=== PATIENT | female | born 1945 | race Caucasian/White ===

== ENCOUNTER 2025-03-09 16:01 | Inpatient (IN) | payer MEDICARE, MEDICAID, SELFPAY ==
[2025-03-09] VITALS (18 sets, daily range): BP systolic 100–176; BP diastolic 37–68; PULSE 59–90; RESP 12–35; TEMP 34–36.6; O2SAT 94–98; BMI 33.9; BMI 34.2
--- NOTE | ~2025-03-09 | MR_ITS ---
CLINICAL HISTORY: stroke Vented pt, lots of motions, tried Blades as possible. Best exams obtained MR Brain without gadolinium Comparison: CT/CA/SR - CT HEAD/BRAIN WO IV CON - 03/09/25 16:32 EDT Findings: No restricted diffusion. No intra-axial mass or hemorrhage. No midline shift. No hydrocephalus. Vascular flow voids are intact. Encephalomalacia/gliosis of the right occipital lobe consistent with chronic infarct. Chronic lacunar infarct of the right basal ganglia. Moderate periventricular subcortical T2/FLAIR hyperintensities consistent with chronic microvascular ischemic changes. The orbits are normal. The sinuses and mastoid air cells are clear. No focal bone lesion. IMPRESSION: No acute infarct, intracranial hemorrhage or mass lesions. 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 Moderate generalized cerebral volume loss and chronic microvascular ischemic changes of the periventricular and subcortical white matter. This document has been electronically signed by: Morelia Galindo MD on 03/09/2025 22:48:14
--- NOTE | ~2025-03-09 | MR_ITS ---
CLINICAL HISTORY: stroke Vented pt, lots of motions, tried Blades as possible. Best exams obtained MR Angiography head without gadolinium Comparison: CT/SR - CT HEAD/BRAIN WO IV CON - 03/09/25 16:32 EDT Findings Widely patent intracranial internal carotid arteries. Vertebrobasilar system intact. Anterior, middle, and posterior cerebral arteries are normal. Unremarkable cerebellar arteries. IMPRESSION: Normal MRA brain This document has been electronically signed by: Morelia Galindo MD on 03/09/2025 22:34:57
--- NOTE | ~2025-03-09 | CT_ITS ---
EXAMINATION: CT HEAD WITHOUT CONTRAST CLINICAL INFORMATION: Unresponsive COMPARISON: None available. TECHNIQUE: Contiguous axial imaging was performed from the skull base to vertex without intravenous administration of contrast. This CT examination was performed using dose optimization techniques as appropriate, variously including the following: *Automated exposure control *Adjustment of mA and/or kV according to patient size (this includes techniques or standardized protocols for targeted exams where dose is matched to indication/reason for exam; i.e. extremities or head) *Use of iterative reconstruction technique DLP: 748 mGY*cm FINDINGS: Focal hypodensity is present in the left side of the miah (axial CT images ). There is chronic encephalization the right [employer] territory. There is a prominent perivascular space in the bilateral basal ganglia versus old lacunar infarcts. There is no intracranial hemorrhage. There is no mass-effect or midline shift. Basal cisterns and ventricles are within normal limits for age/cerebral volume. Orbits are symmetrical and unremarkable. Paranasal sinuses and mastoid air cells are pneumatized. There are no bony abnormalities. CT/CT head/brain wo IV con IMPRESSION: Small focal hypodensity in the left side of the miah could represent age-indeterminate ischemic change. Chronic right [employer] territory infarct with encephalomalacia. Electronically signed by: Bruno Enriquez MD 03/09/2025 04:58 PM EDT
--- NOTE | ~2025-03-09 | XR_ITS ---
CLINICAL HISTORY: ;post intubation Chest Radiograph Comparison: None available Findings: The endotracheal tube terminates within the proximal right mainstem bronchus. The enteric tube terminates in the left upper quadrant. The side port is beyond the gastroesophageal junction. There is a kink within the tube. No cardiomegaly. Normal mediastinal contours. No pneumothorax. Mild elevation of the right hemidiaphragm with right lung base opacity. No left pleural effusion. Postsurgical change in the right upper quadrant. No acute fracture. Impression: Endotracheal tube terminating within the proximal right mainstem bronchus. Pull back by 3 cm. Properly positioned enteric tube, however there is a kink within the tube which may cause obstruction. Mild elevation of the right hemidiaphragm. Right lung base opacity is likely atelectasis. Pneumonia and/or a small pleural effusion may also be considered. This document has been electronically signed by: Tiff Breen MD on 03/09/2025 18:06:00
--- NOTE | 2025-03-09 16:05 | PC.NURSE ---
pt into CT unresponsive to physical stimuliation
[2025-03-09] MEDS: Ketamine HCl/NS 100 MG/10 ML SYRINGE 50 MG IVPUSH (16:15)
--- NOTE | 2025-03-09 16:15 | PC.NURSE ---
pt arrived to the ed as an stroke protocol was non-responsive, gurgled respirations, gazing to the right and flaccid with diaphoresis present, pt moved into ct upon arrival, Dr Hernández walks into the CT room and states that per family plan to intubate even the current MOLS stated DNR/DNI, pt moved back into 4 room intubated at 1618 with a 7.5ET and 23 at the lip, positive color change and capnography at 40, nG tube placed by DR Hernández
--- NOTE | 2025-03-09 16:21 | ECG_ITS ---
Test Reason : ams Blood Pressure : */* mmHG Vent. Rate : 83 BPM Atrial Rate : 83 BPM P-R Int : 264 ms QRS Dur : 106 ms QT Int : 408 ms P-R-T Axes : 51 3 24 degrees QTcB Int : 479 ms Sinus rhythm with 1st degree A-V block with occasional Premature ventricular complexes Septal infarct , age undetermined Abnormal ECG No previous ECGs available Referred By: Irving Hernández Electronically Signed By: Chan Melgar
--- NOTE | 2025-03-09 16:29 | ED.AMS ---
HPI - Altered Mental Status General Chief Complaint: Altered Mental Status Stated Complaint: CVA Time Seen by Provider: 03/09/25 16:22 Source: family (son mamadou brown HCP @[phone]) and EMS Mode of arrival: EMS Limitations: altered mental status History of Present Illness ED Provider: DR. Hernández HPI narrative: 80-year-old female from longterm with history of vascular dementia, age-related physical debility, HTN, hypothyroidism, HLD, GERD , came in for acute mental status change patient presented as a stroke alert last known well about 1 hour before arrival to the hospital, on hospital arrival patient is flaccid,no gag reflex, came in accompanied with MOLST form as DNR/DNI, the healthcare proxy Mamadou Brown, was contacted at phone number [phone] who wanted to revise the DNR condition ask for doing everything for his mom including intubation and placing her on ventilator and CPR if needed. Therefore was moved to room 4, intubated, and stabilize airway, CT head/x-ray/labs were ordered, await for the son to arrive for more history. 16;50 son Mamadou Brown/HCP is at the bedside now last so his mother few hours ago at the longterm mother with perfectly at her baseline able to carry on a good conversation with him then shortly he received a phone call from the longterm that his mother is not responsive. Related Data Home Medications ?Medication ?Instructions ?Recorded ?Confirmed acetaminophen 325 mg tablet 650 mg PO Q6H PRN Fever Or Pain 03/09/25 03/09/25 aluminum-mag hydroxide-simethicone 15 ml PO Q6H PRN Indigestion 03/09/25 03/09/25 400 mg-400 mg-40 mg/5 mL oral susp (Mylanta Maximum Strength) amlodipine 10 mg tablet 10 mg PO DAILY 03/09/25 03/09/25 bisacodyl 10 mg rectal suppository 10 mg ID DAILY PRN Constipation 03/09/25 03/09/25 cholecalciferol (vitamin D3) 25 25 mcg PO DAILY 03/09/25 03/09/25 mcg (1,000 unit) tablet (Vitamin D3) cyanocobalamin (vitamin B-12) 1,000 mcg PO DAILY 03/09/25 03/09/25 1,000 mcg tablet (Vitamin B-12) erythromycin 5 mg/gram (0.5 %) eye 1 inch ophthalmic (eye) QID 03/09/25 03/09/25 ointment irbesartan 300 mg tablet 300 mg PO DAILY 03/09/25 03/09/25 levothyroxine 112 mcg tablet 112 mcg PO DAILY@0600 03/09/25 03/09/25 magnesium hydroxide 400 mg/5 mL 30 ml PO DAILY PRN Constipation 03/09/25 03/09/25 oral suspension (Milk of Magnesia) melatonin 3 mg tablet 3 mg PO BEDTIME 03/09/25 03/09/25 menthol 5 % topical patch (Icy Hot 1 patch topical DAILY 03/09/25 03/09/25 (menthol)) polyethylene glycol 3350 17 17 g PO DAILY PRN Constipation 03/09/25 03/09/25 gram/dose oral powder (Miralax) sertraline 25 mg tablet 25 mg PO DAILY 03/09/25 03/09/25 sertraline 50 mg tablet 50 mg PO DAILY 03/09/25 03/09/25 simvastatin 10 mg tablet 10 mg PO BEDTIME 03/09/25 03/09/25 sodium phosphates 19 gram-7 118 ml ID DAILY PRN Constipation 03/09/25 03/09/25 gram/118 mL enema (Fleet Enema) trazodone 50 mg tablet 25 mg PO BEDTIME 03/09/25 03/09/25 Allergies Allergy/AdvReac Type Severity Reaction Status Date / Time No Known Allergies Allergy Verified 03/09/25 17:06 Review of Systems Review of Systems: Yes unobtainable due to endotracheal tube PMFSH Social History Social History Unable to assess alcohol history related to: Unable to respond Smoked in Last 30 Days: No Use of substances other than those prescribed or required for medical reasons: Unable to respond Advance Directives: No Advance Directives Information Provided: No Do you have a plan to hurt others: No Plan Physical Exam ED Vital Signs: Vital Signs - 24 hr 03/09/25 16:58 03/09/25 17:05 03/09/25 17:08 Temperature 97.8 F 97.8 F Pulse Rate 80 80 Respiratory Rate 18 18 Blood Pressure 108/51 L 108/51 L Pulse Oximetry 97 97 Oxygen Delivery Method Room Air Room Air Oxygen Flow Rate Fraction of Inspired Oxygen 60 03/09/25 17:09 03/09/25 17:18 03/09/25 17:28 Temperature 95.7 F L 96.1 F L 96.1 F L Pulse Rate 81 90 81 Respiratory Rate 18 19 18 Blood Pressure 103/42 L 109/43 L 117/40 L Pulse Oximetry 97 97 95 Oxygen Delivery Method Mechanical Ventilation Mechanical Ventilation Room Air Oxygen Flow Rate 60 Fraction of Inspired Oxygen 60 40 BMI result Body Mass Index 33.9 Vital signs have been reviewed and appear to be correct. Blood pressure elevated. Heart rate normal. Respiratory rate normal. Temperature normal. Oxygen saturation normal. General: Nonresponsive, unable to evaluate for stroke screening. Head: No trauma, pupil is 3 mm reactive bilaterally. ENT: Patent airway with no obstruction, no gag reflex, patient can not protect her airway. Chest: No trauma, lung sound is CTA. Heart: S1, S2. Abdomen: Obese, soft, no trauma. Neuro: Nonresponsive. Extremities: No obvious deformity, no ischemic changes x 4 extremities. Course Reevaluation(s) Reevaluation #1: 80-year-old female came in with acute change mental status, patient is non historian and unable to do a neurological exam unable to assess for NIH score, therefore patient is not candidate for TNK, case discussed with Dr. Morgan neurology on-call recommended get brain MRI at some point. Patient met sepsis with UTI received IV Zosyn. Intubated, post intubation showed ET tube in the right main bronchus the tube was withdrawn 3 cm. Time: 19:56 Medications Administered Generic Name Dose Route Start Last Admin Trade Name Freq PRN Reason Stop Dose Admin Enoxaparin Sodium 40 mg 03/09/25 18:00 03/09/25 17:51 Enoxaparin Sodium 40 Mg/0.4 Ml Syringe SUBCUT 40 mg Q24H ZAIN Administration Propofol 1,000 mg in 100 mls @ 0 mls/hr 03/09/25 16:30 03/09/25 19:31 Diprivan IVCONT 50 mcg/kg/min .Q0M ZAIN 26.04 mls/hr Protocol Administration Per Protocol Lactated Ringer's 1,000 mls @ 100 mls/hr 03/09/25 17:45 03/09/25 17:50 Lr IVCONT 100 mls/hr .Q10H ZAIN Administration Pantoprazole Sodium 40 mg 03/09/25 18:00 03/09/25 18:19 Pantoprazole Sodium 40 Mg/10 Ml Vial IVPUSH 40 mg DAILY@0630 ZAIN Administration Discontinued Medications Generic Name Dose Route Start Last Admin Trade Name Freq PRN Reason Stop Dose Admin Piperacillin Sod/Tazobactam 50 mls @ 100 mls/hr 03/09/25 16:49 03/09/25 17:32 Sod 3.375 gm/ Sodium Chloride IV 03/09/25 17:18 Infused ONCE ONE Infusion Sodium Chloride 1,000 mls @ 999 mls/hr 03/09/25 16:50 03/09/25 18:00 Ns IV 03/09/25 17:50 Infused .Q1H1M ONE Infusion Ketamine HCl 50 mg 03/09/25 16:24 03/09/25 16:15 Ketamine Hcl/Ns 100 Mg/10 Ml Syringe IVPUSH 03/09/25 16:25 50 mg ONCE ONE Administration Ondansetron HCl 4 mg 03/09/25 16:50 03/09/25 16:51 Ondansetron Hcl 4 Mg/2 Ml Vial IVPUSH 03/09/25 16:51 4 mg ONCE ONE Administration Succinylcholine Chloride 100 mg 03/09/25 16:23 03/09/25 16:15 Succinylcholine Chloride 200 Mg/10 Ml Vial IVPUSH 03/09/25 16:24 100 mg ONCE ONE Administration Medical Decision Making Differential Diagnosis Differential Diagnoses: The differential diagnosis associated with the presentation includes (UTI, pneumonia, intracranial bleed, electrolyte derangement, severe anemia.) Admission/Observation Consideration of admission/observation: Escalation of care including admission/observation considered Lab Data MDM Lab Attestation statement: I reviewed the patient's lab results. 03/09/25 16:25 03/09/25 16:25 Labs: Lab Results 03/09/25 03/09/25 03/09/25 Range/Units 16:25 16:26 16:33 WBC 20.6 H (4.8-10.8) X10*3/uL RBC 4.14 L (4.20-5.50) X10*6/uL Hgb 11.7 L (12.0-16.0) g/dl Hct 36.2 L (37.0-47.0) % MCV 87.4 (80.0-98.0) fL MCH 28.3 (27.0-33.0) pg MCHC 32.3 (31.0-35.0) g/dl RDW 14.6 (11.0-16.0) % Plt Count 350 (160-400) X10*3/uL MPV 10.5 (9.4-12.3) fL Immature Gran % (Auto) 0.9 H (0.0-0.4) % Neut % (Auto) 56.6 (45-73) % Lymph % (Auto) 34.6 (20-40) % [place] % (Auto) 4.3 (2-11) % Eos % (Auto) 3.2 (0-4) % Baso % (Auto) 0.4 (0-2) % Lymph # (Auto) 7.1 H (1.2-4.9) X10*3/uL [place] # (Auto) 0.9 (0.1-1.2) X10*3/uL Eos # (Auto) 0.7 H (0.0-0.4) X10*3/uL Baso # (Auto) 0.1 (0.0-0.2) X10*3/uL Abs Immat Gran (auto) 0.19 H (0.00-0.03) X10*3/uL Absolute Neuts (auto) 11.6 H (2.0-8.3) x10*3/uL Absolute Nucleated RBC 0.000 (0.0-0.012) X10*3/uL Nucleated RBC % (auto) 0.0 (0.0-0.2) /100WBC Smear Tech's Comments VERIFIED PT 10.6 L (10.9-12.4) SEC INR 0.9 (0.9-1.1) VBG pH (7.32-7.43) VBG pCO2 mmHg VBG pO2 mmHg VBG HCO3 (22-26) mmol/L VBG O2 Saturation % VBG Base Excess mmol/L Sodium 137 (135-145) mmol/L Potassium 4.6 (3.3-5.1) mmol/L Chloride 109 H (96-108) mmol/L Carbon Dioxide 20 L (22-29) mmol/L Anion Gap 13 (12-20) BUN 52 H (9-16) mg/dL Creatinine 1.51 H (0.5-1.4) mg/dL Estim Creat Clear Calc 30.5 Estimated GFR 33 Random Glucose 312 H (60-115) mg/dL Lactic Acid 1.7 (0.5-2.0) mmol/L Calcium 8.4 (8.4-10.2) mg/dL Phosphorus 6.0 H (2.7-4.5) mg/dL Magnesium 2.1 (1.6-2.6) mg/dL Total Bilirubin 0.2 (0.0-1.0) mg/dL AST 26 (5-31) U/L ALT 17 (0-31) U/L Alkaline Phosphatase 115 (39-117) U/L Ammonia 26 (13-55) umol/L Troponin I High Sens 38.5 H (<3.5-17.0) ng/L B-Natriuretic Peptide 393 H (<100) pg/mL Total Protein 7.0 (6.5-8.0) g/dL Albumin 3.6 (3.5-5.0) g/dL Urine Color Urine Appearance Urine pH (5.0-9.0) Ur Specific [place] (1.005-1.025) Urine Protein (Neg-Trace) mg/dL Urine Glucose (UA) (Negative) mg/dL Urine Ketones (Negative) mg/dL Urine Blood (Negative) Urine Nitrite (Negative) Ur Leukocyte Esterase (Negative) Urine RBC (0-2) /HPF Urine WBC (0-5) /HPF Ur Squamous Epith Cells (0-2) /HPF Urine Bacteria (None Seen) Hyaline Casts (0-2) /LPF Influenza Type A (PCR) NEGATIVE (Negative) Influenza Type B (PCR) NEGATIVE (Negative) RSV RNA Qual (PCR) NEGATIVE (Negative) SARS-CoV-2 RNA (RT-PCR) NEGATIVE (Negative) 03/09/25 03/09/25 Range/Units 16:37 17:01 WBC (4.8-10.8) X10*3/uL RBC (4.20-5.50) X10*6/uL Hgb (12.0-16.0) g/dl Hct (37.0-47.0) % MCV (80.0-98.0) fL MCH (27.0-33.0) pg MCHC (31.0-35.0) g/dl RDW (11.0-16.0) % Plt Count (160-400) X10*3/uL MPV (9.4-12.3) fL Immature Gran % (Auto) (0.0-0.4) % Neut % (Auto) (45-73) % Lymph % (Auto) (20-40) % [place] % (Auto) (2-11) % Eos % (Auto) (0-4) % Baso % (Auto) (0-2) % Lymph # (Auto) (1.2-4.9) X10*3/uL [place] # (Auto) (0.1-1.2) X10*3/uL Eos # (Auto) (0.0-0.4) X10*3/uL Baso # (Auto) (0.0-0.2) X10*3/uL Abs Immat Gran (auto) (0.00-0.03) X10*3/uL Absolute Neuts (auto) (2.0-8.3) x10*3/uL Absolute Nucleated RBC (0.0-0.012) X10*3/uL Nucleated RBC % (auto) (0.0-0.2) /100WBC Smear Tech's Comments PT (10.9-12.4) SEC INR (0.9-1.1) VBG pH 7.00 L* (7.32-7.43) VBG pCO2 81 mmHg VBG pO2 277 mmHg VBG HCO3 20 L (22-26) mmol/L VBG O2 Saturation 99.0 % VBG Base Excess -11.8 mmol/L Sodium (135-145) mmol/L Potassium (3.3-5.1) mmol/L Chloride (96-108) mmol/L Carbon Dioxide (22-29) mmol/L Anion Gap (12-20) BUN (9-16) mg/dL Creatinine (0.5-1.4) mg/dL Estim Creat Clear Calc Estimated GFR Random Glucose (60-115) mg/dL Lactic Acid (0.5-2.0) mmol/L Calcium (8.4-10.2) mg/dL Phosphorus (2.7-4.5) mg/dL Magnesium (1.6-2.6) mg/dL Total Bilirubin (0.0-1.0) mg/dL AST (5-31) U/L ALT (0-31) U/L Alkaline Phosphatase (39-117) U/L Ammonia (13-55) umol/L Troponin I High Sens (<3.5-17.0) ng/L B-Natriuretic Peptide (<100) pg/mL Total Protein (6.5-8.0) g/dL Albumin (3.5-5.0) g/dL Urine Color Yellow Urine Appearance Cloudy Urine pH 5.5 (5.0-9.0) Ur Specific [place] 1.020 (1.005-1.025) Urine Protein >=1000 (4+) H (Neg-Trace) mg/dL Urine Glucose (UA) 100 H (Negative) mg/dL Urine Ketones Negative (Negative) mg/dL Urine Blood Small (1+) H (Negative) Urine Nitrite Negative (Negative) Ur Leukocyte Esterase Moderate (2+) H (Negative) Urine RBC 3-5 H (0-2) /HPF Urine WBC >50 H (0-5) /HPF Ur Squamous Epith Cells 11-20 (0-2) /HPF Urine Bacteria 4+ (None Seen) Hyaline Casts >20 (0-2) /LPF Influenza Type A (PCR) (Negative) Influenza Type B (PCR) (Negative) RSV RNA Qual (PCR) (Negative) SARS-CoV-2 RNA (RT-PCR) (Negative) Independent Interpretation I performed an independent interpretation of an: Plain X-Ray (Chest:Endotracheal tube terminating within the proximal right mainstem bronchus. Pull back by 3 cm. Properly positioned enteric tube, however there is a kink within the tube which may cause obstruction. Mild elevation of the right hemidiaphragm. Right lung base opacity is likely atelectasis. Pneu) and CT Scan (Head:Small focal hypodensity in the left side of the miah could represent age-indeterminate ischemic change. 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 Procedures Intubation Intubation Type:: Emergency Endotracheal Intubation Intubation Date:: 03/09/25 Intubation Time:: 17:00 Time out performed: Yes sedative: Ketamine Mg Given: 50 paralytic: Succinylcholine Mg Given: 100 Laryngoscope: fiber optic video scope ET Tube Size: 7.5 ET Tube Uncuffed: No Tube Secured Depth (cm): 23 Tube Placement Confirmation: visualized tube passing through cords, equal breath sounds bilaterally, no breath sounds over epigastrium and confirmation by capnometry Patient Tolerated Procedure: well Intubation Complications: none Critical Care Time Critical Care Time Critical Care Time: Yes Total Critical Care Time: 60 Attestation: The patient was critically ill with a high probability of imminent or life-threatening deterioration. I spent greater than 30 minutes of discontinuous time evaluating the patient, delivering critical care at the bedside, discussing evaluating data with consultants. Critical care time does not include time spent performing separately billable procedures or teaching. Time spent performing critical care was 60 minutes. Discharge Plan Discharge Clinical Impression: Altered mental status, Acute UTI Patient Disposition: Admitted As Inpatient
[2025-03-09 16:40] LABS: Hematocrit 36.2 % (37.0-47.0); Hemoglobin 11.7 g/dl (12.0-16.0); Imm Gran Abs Auto 0.19 X10*3/uL (0.00-0.03); Imm Gran Pct Auto 0.9 % (0.0-0.4); MANUAL DIFF FLAG SCAN; Mean Corpuscular HGB Conc 32.3 g/dl (31.0-35.0); Mean Corpuscular Hemoglobin 28.3 pg (27.0-33.0); Mean Corpuscular Volume 87.4 fL (80.0-98.0); NRBC Abs Auto 0.000 X10*3/uL (0.0-0.012); NRBC Pct Auto 0.0 /100WBC (0.0-0.2); Platelet Count 350 X10*3/uL (160-400); Red Blood Count 4.14 X10*6/uL (4.20-5.50); SCAN SMEAR FLAG 1; White Blood Count 20.6 X10*3/uL (4.8-10.8)
[2025-03-09 16:41] LABS: Lymphocytes Absolute Auto 7.1 X10*3/uL (1.2-4.9)
[2025-03-09 16:42] LABS: Ammonia 26 umol/L (13-55)
--- NOTE | 2025-03-09 16:48 | PC.NURSE ---
Propofol titrated per protocol d/t pt moving around and requiring additional sedation. Titrated per NOV.
[2025-03-09 16:49] LABS: Venous Blood Gas Refer to POC result
[2025-03-09 16:49] LABS: VBG HCO3 20 mmol/L (22-26); VBG O2 % Saturation 99.0 %
--- NOTE | 2025-03-09 16:51 | PC.NURSE ---
pt is activity vomiting through the Og tube some brownish about 100cc draining vent setting originally 18/360/60% of oxygen and 5 of peep
[2025-03-09 16:53] LABS: Alanine Aminotransferase 17 U/L (0-31); Albumin Level 3.6 g/dL (3.5-5.0); Alkaline Phosphatase 115 U/L (39-117); Anion Gap 13 (12-20); Aspartate Amino Transferase 26 U/L (5-31); Blood Urea Nitrogen 52 mg/dL (9-16); Calcium 8.4 mg/dL (8.4-10.2); Carbon Dioxide 20 mmol/L (22-29); Chloride 109 mmol/L (96-108); Creatinine Clr Calc Pharmacy 30.5; Estimated Glomerular Filt Rate 33; Magnesium 2.1 mg/dL (1.6-2.6); Potassium 4.6 mmol/L (3.3-5.1); Sodium 137 mmol/L (135-145); Total Protein 7.0 g/dL (6.5-8.0)
[2025-03-09 16:56] LABS: INTERNATIONAL NORM RATIO 0.9 (0.9-1.1); Prothrombin Time 10.6 SEC (10.9-12.4)
[2025-03-09 17:01] LABS: Troponin-I High Sensitivity 38.5 ng/L (<3.5-17.0)
[2025-03-09 17:06] LABS: B Type Natriuretic Peptide 393 pg/mL (<100)
[2025-03-09 17:09] LABS: Appearance Urine Cloudy; Glucose Urine UA 100 mg/dL (Negative); PH 5.5 (5.0-9.0); Specific Gravity - Urine 1.020 (1.005-1.025); UMIC TRIGGER UACC YES
--- NOTE | 2025-03-09 17:12 | PC.NURSE ---
80 F presents to ED with AMS, LKW 1 hr prior to arrival. Pt reportedly not talking as she normally does, R sided weakness, not talking or following commands. RR even but labored, required intubation. Pt not able to respond regarding pain. pt afebrile. Continuing to work-up patient.
--- NOTE | 2025-03-09 17:27 | PC.NURSE ---
Pt core temp from [facility] 96.1 F. Provider notified and recommended toby golden. Toby golden applied.
--- NOTE | 2025-03-09 17:27 | PC.NURSE ---
intesivist at bedside and provider decreased the oxygen setting on the vent decreased from 60-40% and sating well at 95%
[2025-03-09 17:37] LABS: UACC Culture Trigger YES
--- NOTE | 2025-03-09 17:45 | P.HPCC_ITS ---
History of Present Illness Date of Service: 03/09/25 Chief Complaint: Altered sensorium History is limited as patient is intubated and on ventilator support 80-year-old lady with past medical history of vascular dementia, dementia, age- related physical debility, HTN, hypothyroidism, HLD, GERD was apparently at her baseline when the son met her mom at the correction. An hour later patient had an acute change in her mental status so was brought into the ED. when she was presented in the ED she was flaccid, unresponsive so was intubated and placed on ventilator support. CT of the head was done which showed age- indeterminate stroke in the miah. She has a MOLST form as DNR/DNI, the healthcare proxy Lorenzo was contacted at phone number [phone] who reversed her code status. Review of Systems 2 Review of Systems: Unable to obtain as patient is unresponsive [facility] Social History Social History Unable to assess alcohol history related to: Unable to respond Smoked in Last 30 Days: No Use of substances other than those prescribed or required for medical reasons: Unable to respond Advance Directives: No Advance Directives Information Provided: No Do you have a plan to hurt others: No Plan Meds Allergies Allergy/AdvReac Type Severity Reaction Status Date / Time No Known Allergies Allergy Verified 03/09/25 17:06 Active Medications: Current Medications Enoxaparin Sodium (Enoxaparin Sodium 40 Mg/0.4 Ml Syringe) 40 mg SUBCUT Q24H ZAIN Propofol (Diprivan) 1,000 mg in 100 mls @ 0 mls/hr IVCONT .Q0M ZAIN; Protocol Last Titration: 03/09/25 17:18 Dose: 50 mcg/kg/min, 26.04 mls/hr Sodium Chloride (Ns) 1,000 mls @ 999 mls/hr IV .Q1H1M ONE Stop: 03/09/25 17:50 Last Admin: 03/09/25 16:59 Dose: 999 mls/hr Lactated Ringer's (Lr) 1,000 mls @ 100 mls/hr IVCONT .Q10H ZAIN Physical Exam 2 Vital Signs: Vital Signs: Last Vital Signs Temp 96.1 F L 03/09/25 17:28 Pulse 81 07/07/25 17:28 Resp 18 03/09/25 17:28 BP 117/40 L 03/09/25 17:28 Pulse Ox 95 03/09/25 17:28 O2 Del Method Room Air 03/09/25 17:28 O2 Flow Rate 60 03/09/25 17:09 FiO2 40 03/09/25 17:28 BMI result Body Mass Index 33.9 General: Elderly lady in severe acute distress, chronically ill appearing and tired appearing Nutritional Appearance: Malnourished and overweight Eyes: appearance normal, both eyes and all related structures; Alignment and Position: alignment normal and position normal Neck: No lymphadenopathy, no thyromegaly Resp: bilateral air entry equal, no added sounds present Cardio: Regular rate, regular rhythm; Heart sounds: S1 normal heart sound present and S2 normal heart sound present GI: soft, nontender, no guarding, no hepatosplenomegaly : bladder normal to inspection, bladder normal to palpation, no renal angle tenderness Skin: no rashes or lesions noted and elasticity normal Neuro: Unresponsive, no spontaneous movements, on sedation Results Labs 03/09/25 16:25 03/09/25 16:25 Labs: Laboratory Results - last 24 hr 03/09/25 03/09/25 03/09/25 16:25 16:26 16:33 MCV 87.4 MCH 28.3 MCHC 32.3 RDW 14.6 Plt Count 350 MPV 10.5 Immature Gran % (Auto) 0.9 H Neut % (Auto) 56.6 Lymph % (Auto) 34.6 [place] % (Auto) 4.3 Eos % (Auto) 3.2 Baso % (Auto) 0.4 Lymph # (Auto) 7.1 H [place] # (Auto) 0.9 Eos # (Auto) 0.7 H Baso # (Auto) 0.1 Abs Immat Gran (auto) 0.19 H Absolute Neuts (auto) 11.6 H Absolute Nucleated RBC 0.000 Nucleated RBC % (auto) 0.0 Smear Tech's Comments VERIFIED PT 10.6 L INR 0.9 VBG pH VBG pCO2 VBG pO2 VBG HCO3 VBG O2 Saturation VBG Base Excess Anion Gap 13 Estim Creat Clear Calc 30.5 Estimated GFR 33 Random Glucose 312 H Lactic Acid 1.7 Calcium 8.4 Magnesium 2.1 Total Bilirubin 0.2 AST 26 ALT 17 Alkaline Phosphatase 115 Ammonia 26 B-Natriuretic Peptide 393 H Total Protein 7.0 Albumin 3.6 Urine Color Urine Appearance Urine pH Ur Specific [place] Urine Protein Urine Glucose (UA) Urine Ketones Urine Blood Urine Nitrite Ur Leukocyte Esterase Urine RBC Urine WBC Ur Squamous Epith Cells Urine Bacteria Hyaline Casts 03/09/25 03/09/25 16:37 17:01 MCV MCH MCHC RDW Plt Count MPV Immature Gran % (Auto) Neut % (Auto) Lymph % (Auto) [place] % (Auto) Eos % (Auto) Baso % (Auto) Lymph # (Auto) [place] # (Auto) Eos # (Auto) Baso # (Auto) Abs Immat Gran (auto) Absolute Neuts (auto) Absolute Nucleated RBC Nucleated RBC % (auto) Smear Tech's Comments PT INR VBG pH 7.00 L* VBG pCO2 81 VBG pO2 277 VBG HCO3 20 L VBG O2 Saturation 99.0 VBG Base Excess -11.8 Anion Gap Estim Creat Clear Calc Estimated GFR Random Glucose Lactic Acid Calcium Magnesium Total Bilirubin AST ALT Alkaline Phosphatase Ammonia B-Natriuretic Peptide Total Protein Albumin Urine Color Yellow Urine Appearance Cloudy Urine pH 5.5 Ur Specific [place] 1.020 Urine Protein >=1000 (4+) H Urine Glucose (UA) 100 H Urine Ketones Negative Urine Blood Small (1+) H Urine Nitrite Negative Ur Leukocyte Esterase Moderate (2+) H Urine RBC 3-5 H Urine WBC >50 H Ur Squamous Epith Cells 11-20 Urine Bacteria 4+ Hyaline Casts >20 Imaging Radiologist's Impressions: Impressions Head CT 03/09/25 15:32 IMPRESSION: Small focal hypodensity in the left side of the miah could represent age-indeterminate ischemic change. 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 Electronically signed by: Bruno Enriquez MD 03/09/2025 04:58 PM EDT Assessment and Plan (1) Acute encephalopathy: Status: Acute (2) Acute respiratory failure: Status: Acute (3) Stroke: Status: Acute (4) Acute kidney injury: Status: Acute (5) Diabetes mellitus: Status: Acute (6) Dementia: Status: Acute Plan Neuro: Acute encephalopathy possibly due to new onset stroke as patient has history of vascular dementia. CT of the head showed age-indeterminate pontine stroke, stat Neurology consult placed. We will get MRI of brain. On propofol for sedation, as needed fentanyl for analgesia Close neurological status monitoring in the ICU every hour Cardiac: will get TTE Respiratory: Acute hypoxemic respiratory failure due to poor respiratory drive Currently on ventilator support On PRVC mode FiO2 decreased to 40%, PEEP 5, TV 360, RR 20 Peak pressures and plateau pressures are under the curve Ventilator management bundle with head end elevation, aspiration precaution, chlorhexidine mouthwash, daily awakening trials, daily spontaneous breathing trials GI: We will start on tube feeds Renal: Acute kidney injury possibly secondary to ATN Baseline creatinine normal, creatinine today is We will closely monitor I's and O's Avoid nephrotoxic medications Heme: Chronic anemia, closely monitor H&H, transfuse for hemoglobin less than 7 grams/deciliter Endocrine: has underlying diabetes mellitus Blood sugars not under control we will add Sliding scale insulin as needed Infectious disease: We will send pancultures will start on empiric Zosyn Musculoskeletal: Decubitus ulcer prevention protocol Lines: peripheral Prophylaxis: Lovenox, pantoprazole Patient has multiple organ failures including acute respiratory failure, acute encephalopathy, acute kidney injury currently on ventilator support. Critical care time spent is about 45 minutes on evaluating the patient, admitting the patient to the critical care unit, formulating critical care prior management, review of labs, review of images, coordination of care, ventilator management, sedation management, changing ventilator settings, close hemodynamic monitoring and this time is excluding any procedural time
[2025-03-09] MEDS: Lactated Ringers 1,000 ML 100 ML IVCONT ×2 (17:50→22:30)
--- NOTE | 2025-03-09 18:14 | PC.NURSE ---
Respiratory notified after CXR shows ETT needs to be pulled back 3 cm. Respiratory pulling back from 23cm to 20cm at lips.
--- NOTE | 2025-03-09 18:16 | PHA.MEDREC ---
Addendum entered by Waleska Linda RPh 03/09/25 18:23: Reviewed by [facility]. Original Note: Pharmacy Consult ? Medication Reconciliation Pharmacy has completed the medication reconciliation. Utilized list from [facility] to confirm med list.
[2025-03-09 18:54] LABS: Resp Syncy Virus RNA Qual PCR NEGATIVE (Negative); SARS COV2 PCR INHOUSE NEGATIVE (Negative)
--- NOTE | 2025-03-09 19:11 | PC.NURSE ---
MRI form completed and faxed. ICU called to attempt report, [employer]OR MANAGER stated they will call back later because the patient should be getting the MRI done before going to ICU. ICU notified this nurse is headed home. Charge ED RN notified.
--- NOTE | 2025-03-09 19:24 | PC.NURSE ---
nurse to nurse given to Erik in ICU. plan for patient to go for MRI for 830 pm and then will be brought to ICU.
[2025-03-09 22:28] LABS: Glucose, Whole Blood 86 mg/dL (60-115)
[2025-03-09 22:28] LABS: MANUAL DIFF FLAG NO
[2025-03-09 22:29] LABS: Hematocrit 30.8 % (37.0-47.0); Hemoglobin 10.3 g/dl (12.0-16.0); Imm Gran Abs Auto 0.09 X10*3/uL (0.00-0.03); Imm Gran Pct Auto 0.6 % (0.0-0.4); Lymphocytes Absolute Auto 1.0 X10*3/uL (1.2-4.9); Mean Corpuscular HGB Conc 33.4 g/dl (31.0-35.0); Mean Corpuscular Hemoglobin 28.5 pg (27.0-33.0); Mean Corpuscular Volume 85.1 fL (80.0-98.0); NRBC Abs Auto 0.000 X10*3/uL (0.0-0.012); NRBC Pct Auto 0.0 /100WBC (0.0-0.2); Platelet Count 237 X10*3/uL (160-400); Red Blood Count 3.62 X10*6/uL (4.20-5.50); White Blood Count 15.8 X10*3/uL (4.8-10.8)
[2025-03-09 22:38] LABS: VBG HCO3 16 mmol/L (22-26); VBG O2 % Saturation 100.0 %
[2025-03-09 22:42] LABS: Alanine Aminotransferase 13 U/L (0-31); Albumin Level 3.2 g/dL (3.5-5.0); Alkaline Phosphatase 94 U/L (39-117); Anion Gap 12 (12-20); Aspartate Amino Transferase 29 U/L (5-31); Blood Urea Nitrogen 52 mg/dL (9-16); Calcium 8.1 mg/dL (8.4-10.2); Carbon Dioxide 17 mmol/L (22-29); Chloride 114 mmol/L (96-108); Creatinine Clr Calc Pharmacy 30.3; Estimated Glomerular Filt Rate 33; Potassium 4.5 mmol/L (3.3-5.1); Sodium 138 mmol/L (135-145); Total Protein 6.1 g/dL (6.5-8.0)
[2025-03-09] MEDS: fentaNYL citrate/NS 1,000 MCG/100 ML PLAST..BAG 2.5 MCG IVCONT (22:46)
[2025-03-09 23:14] LABS: Venous Blood Gas Refer to POC result
[2025-03-10] VITALS (32 sets, daily range): BP systolic 98–183; BP diastolic 31–122; PULSE 52–87; RESP 14–22; TEMP 35–37.3; O2SAT 91–97; BMI 35.2; BMI 33.6
--- NOTE | 2025-03-10 04:23 | PC.NURSE ---
Addendum entered by Maged Elias RN 03/10/25 06:21: TEMP IMPROVED TO 97.5 CORE..RESTING HR 56..S.JENNIFER 1ST-DEGREE AV-BLOCK...VU DRAINING APPROX 35 CC/HR CLEARER URINE Original Note: ADMIT TO ICU APPROX 22:00...PATIENT REMAINS INTUBATED.VCV VENT SUPPORT....PROPOFOL INFUSING 50 MCG/KG/MIN ON ARRIVAL...(+) GAG/COUGH..WEAKLY MOVES HANDS BUT NOT TO COMMAND..LEGS SEMI-CONTRACTED BUT PATIENT MOVES LEGS BUT NOT TO COMMAND..VENT DYSYNCHRONY DESPITE PROPOFOL..PROVIDER AT BEDSIDE..FENTANYL 25 MCG/HR STARTED WITH RETURN OF VENT SYNCHRONY....NSR 1ST-DEGREE AV-BLOCK HR 64-72 ON ARRIVAL....HR DECREASED TO 52-54..TEMP DECREASED TO 95.9 CORE...PROVIDER AWARE..WARMING BLANKET PLACED...REMAINS HR 52/S.BRADYCARDIA 1ST-DEGREE AV-BLOCK...PROPOFOL GRADUALLY WEANED TO 20 MCG/KG/HR AND FENTANYL maintained 25 mcg/hr...CURRENT TEMP IMPROVED TO 96.4 CORE
[2025-03-10 05:22] LABS: VBG HCO3 15 mmol/L (22-26); VBG O2 % Saturation 99.0 %
[2025-03-10 05:27] LABS: MANUAL DIFF FLAG NO
[2025-03-10 05:28] LABS: Hematocrit 27.8 % (37.0-47.0); Hemoglobin 9.3 g/dl (12.0-16.0); Imm Gran Abs Auto 0.07 X10*3/uL (0.00-0.03); Imm Gran Pct Auto 0.5 % (0.0-0.4); Lymphocytes Absolute Auto 1.4 X10*3/uL (1.2-4.9); Mean Corpuscular HGB Conc 33.5 g/dl (31.0-35.0); Mean Corpuscular Hemoglobin 28.5 pg (27.0-33.0); Mean Corpuscular Volume 85.3 fL (80.0-98.0); NRBC Abs Auto 0.000 X10*3/uL (0.0-0.012); NRBC Pct Auto 0.0 /100WBC (0.0-0.2); Platelet Count 210 X10*3/uL (160-400); Red Blood Count 3.26 X10*6/uL (4.20-5.50); White Blood Count 12.7 X10*3/uL (4.8-10.8)
[2025-03-10 05:29] LABS: Venous Blood Gas Refer to POC result
[2025-03-10] MEDS: Lactated Ringers 1,000 ML 100 ML IVCONT ×2 (05:34→15:35)
[2025-03-10 05:59] LABS: Alanine Aminotransferase 14 U/L (0-31); Albumin Level 2.8 g/dL (3.5-5.0); Alkaline Phosphatase 86 U/L (39-117); Anion Gap 15 (12-20); Aspartate Amino Transferase 32 U/L (5-31); Blood Urea Nitrogen 50 mg/dL (9-16); Calcium 8.2 mg/dL (8.4-10.2); Carbon Dioxide 13 mmol/L (22-29); Chloride 114 mmol/L (96-108); Cholesterol 127 mg/dL (<200); Creatinine Clr Calc Pharmacy 30.3; Estimated Glomerular Filt Rate 32; HDL Cholesterol 40 mg/dL (>40); Magnesium 2.1 mg/dL (1.6-2.6); Potassium 4.0 mmol/L (3.3-5.1); Sodium 138 mmol/L (135-145); Total Protein 5.5 g/dL (6.5-8.0); Triglycerides 74 mg/dL (<150)
--- NOTE | 2025-03-10 07:00 | CA_ITS ---
Transthoracic Echocardiogram Patient (Last, First, Middle): Beatrice Brown M Gender: Female Date of : 1945 Age: 80 Procedure Date: 03/10/2025 Procedure Type: Transthoracic Echocardiogram Location: ICU Height: 160.02 cm Weight: 89.81 kg BSA: 1.93 m2 Heart Rate: 62 bpm BP: 159 / 58 mmHg [employer] Teacher: SB/RC Referring MD: Jayjay Ordonez MD Symptoms: stroke Study Quality: Poor parasternal window ECG Rhythm: Sinus Conclusions: - Normal left ventricular size and systolic function. The visually estimated ejection fraction is between 55-60%. - Normal right ventricular cavity size and systolic function. - There is mild to moderate aortic valve stenosis. Findings Procedure Information The quality of the study was technically difficult. The study quality is limited by the presence of a ventilator. Left Ventricle Normal left ventricular size and systolic function. The visually estimated ejection fraction is between 55-60%. Regional wall motion abnormalities can not be excluded due to suboptimal endocardial definition. Diastolic function is normal for age. Right Ventricle Normal right ventricular cavity size and systolic function. Atria The left atrium is mildly dilated. The right atrium is normal in size. Aortic Valve The aortic valve was not well visualized. There is mild to moderate aortic valve stenosis. The peak aortic velocity is 2.68 m/s. The mean gradient is 15 mmHg. The aortic valve area is 1.20 cm2. There is no aortic valve regurgitation. Mitral Valve Likely normal mitral valve structure and function. There is no mitral valve regurgitation. There is no mitral valve stenosis. Pulmonic Valve The pulmonic valve is likely normal. Tricuspid Valve The tricuspid valve was not well visualized. Tricuspid regurgitation envelope is inadequate for calculation of right ventricular systolic pressure. The right ventricular systolic pressure is 32 mmHg. Normal right atrial pressure. There is no evidence of pulmonary hypertension. Venous The inferior vena cava is normal in size and collapses greater than 50% with inspiration. Pericardium/Pleural There is no evidence of pericardial effusion. Prior Study Comparison No prior study available for comparison. Measurements 2D Linear Measurements LVOT Diam: 1.90 3.0+(-)1.3 cm 2D Systolic Function EF 4C: 45.50 >55% EF 2C: 57.90 >55% EF BiP: 50.90 >55% Mitral Valve MV Pk E: 0.55 MV PK A: 0.97 MV Decel Time: 177.00 E/A: 0.60 E'Lateral: 5.87 E'Medial: 5.55 E/E' Med: 9.90 E/E' Lat: 9.30 PHT: 52.00 MVA PHT: 4.23 Decel [place]: 3.11 Aortic Valve AoV Pk Peña: 2.68 AoV Mn Peña: 1.82 AoV VTI: 0.63 AoV Pk Grad: 29.00 Aov Mn Grad: 15.00 LUZ MARINA Cont.VTI: 1.20 LVOT LVOT Pk Peña: 1.07 LVOT Mn Peña: 0.78 LVOT VTI: 0.27 LVOT Pk Grad: 5.00 LVOT Mn Grad: 3.00 LVOT Diam: 1.90 LVOT Area: 2.84 Diastolic Function MV Pk E: 0.55 MV Pk A: 0.97 E/A: 0.60 E'Medial: 5.55 E/E' Med: 9.90 E' Laterial: 5.87 E/E' Lat: 9.30 Right Ventricle TAPSE (mm): 27.00 TVS' Peña: 10.70 Tricuspid Valve TR Pk Peña: 2.46 TR Pk Grad: 24.00 RA Press: 8.00 RVSP: 32.00 Great Vessels Aorta Ao Arch: 2.60 Pulmonary Valve PV Pk Peña: 0.98 Peak PV Grad: 4.00 Updated in Other Vendor System with Status of Final Chan Melgar MD electronically signed on 03/10/2025 4:05:15 PM with status of Final
[2025-03-10 07:13] LABS: Hemoglobin A1C 76.8121 umol/L; Total Hemoglobin (HGBA1C) 2492.8326 umol/L
[2025-03-10 07:34] LABS: Glucose, Whole Blood 98 mg/dL (60-115)
--- NOTE | 2025-03-10 08:35 | P.PNCC_ITS ---
Subjective Subjective Date of Service: 03/10/25 Interval History: remains on ventilator support on propofol for sedation and fentanyl for analgesia Critical Care Time (minutes): 40 Physical Exam 2 Vital Signs: Vital Signs: Last Vital Signs Temp 99.0 F 03/10/25 08:00 Pulse 62 03/10/25 08:00 Resp 18 03/10/25 08:00 BP 155/56 H 03/10/25 08:00 Pulse Ox 95 03/10/25 08:00 O2 Del Method Mechanical Ventil ation 03/10/25 08:00 O2 Flow Rate 40 03/09/25 18:57 FiO2 25 03/10/25 08:00 BMI result Body Mass Index 33.6 General: Elderly lady in severe acute distress, she is chronically ill appearing and tired appearing Nutritional Appearance: well nourished and overweight Eyes: appearance normal, both eyes and all related structures; Alignment and Position: alignment normal and position normal Neck: No lymphadenopathy, no thyromegaly Resp: bilateral air entry equal, occasional added sounds present Cardio: Regular rate, regular rhythm; Heart sounds: S1 normal heart sound present and S2 normal heart sound present GI: soft, nontender, no guarding, no hepatosplenomegaly : bladder normal to inspection, bladder normal to palpation, no renal angle tenderness Skin: no rashes or lesions noted and elasticity normal Neuro: No focal deficit, sedated Objective Data Labs 03/10/25 04:27 03/10/25 04:27 Labs: Laboratory Results - last 24 hr 03/09/25 03/09/25 03/09/25 16:25 16:26 16:33 WBC 20.6 H RBC 4.14 L Hgb 11.7 L Hct 36.2 L MCV 87.4 MCH 28.3 MCHC 32.3 RDW 14.6 Plt Count 350 MPV 10.5 Immature Gran % (Auto) 0.9 H Neut % (Auto) 56.6 Lymph % (Auto) 34.6 [place] % (Auto) 4.3 Eos % (Auto) 3.2 Baso % (Auto) 0.4 Lymph # (Auto) 7.1 H [place] # (Auto) 0.9 Eos # (Auto) 0.7 H Baso # (Auto) 0.1 Abs Immat Gran (auto) 0.19 H Absolute Neuts (auto) 11.6 H Absolute Nucleated RBC 0.000 Nucleated RBC % (auto) 0.0 Smear Tech's Comments VERIFIED PT 10.6 L INR 0.9 VBG pH VBG pCO2 VBG pO2 VBG HCO3 VBG O2 Saturation VBG Base Excess Sodium 137 Potassium 4.6 Chloride 109 H Carbon Dioxide 20 L Anion Gap 13 BUN 52 H Creatinine 1.51 H Estim Creat Clear Calc 30.5 Estimated GFR 33 POC Glucose Random Glucose 312 H Estimat Average Glucose Hemoglobin A1c % Lactic Acid 1.7 Calcium 8.4 Phosphorus 6.0 H Magnesium 2.1 Total Bilirubin 0.2 AST 26 ALT 17 Alkaline Phosphatase 115 Ammonia 26 Troponin I High Sens 38.5 H B-Natriuretic Peptide 393 H Total Protein 7.0 Albumin 3.6 Triglycerides Cholesterol LDL Cholesterol, Calc HDL Cholesterol Urine Color Urine Appearance Urine pH Ur Specific [place] Urine Protein Urine Glucose (UA) Urine Ketones Urine Blood Urine Nitrite Ur Leukocyte Esterase Urine RBC Urine WBC Ur Squamous Epith Cells Urine Bacteria Hyaline Casts Influenza Type A (PCR) NEGATIVE Influenza Type B (PCR) NEGATIVE RSV RNA Qual (PCR) NEGATIVE SARS-CoV-2 RNA (RT-PCR) NEGATIVE 03/09/25 03/09/25 03/09/25 16:37 17:01 22:24 WBC 15.8 H RBC 3.62 L Hgb 10.3 L Hct 30.8 L MCV 85.1 MCH 28.5 MCHC 33.4 RDW 14.9 Plt Count 237 D MPV 10.2 Immature Gran % (Auto) 0.6 H Neut % (Auto) 86.8 H Lymph % (Auto) 6.1 L [place] % (Auto) 6.3 Eos % (Auto) 0.0 Baso % (Auto) 0.2 Lymph # (Auto) 1.0 L [place] # (Auto) 1.0 Eos # (Auto) 0.0 Baso # (Auto) 0.0 Abs Immat Gran (auto) 0.09 H Absolute Neuts (auto) 13.7 H Absolute Nucleated RBC 0.000 Nucleated RBC % (auto) 0.0 Smear Tech's Comments PT INR VBG pH 7.00 L* VBG pCO2 81 VBG pO2 277 VBG HCO3 20 L VBG O2 Saturation 99.0 VBG Base Excess -11.8 Sodium 138 Potassium 4.5 Chloride 114 H Carbon Dioxide 17 L Anion Gap 12 BUN 52 H Creatinine 1.52 H Estim Creat Clear Calc 30.3 Estimated GFR 33 POC Glucose Random Glucose 84 Estimat Average Glucose Hemoglobin A1c % Lactic Acid Calcium 8.1 L Phosphorus Magnesium Total Bilirubin 0.2 AST 29 ALT 13 Alkaline Phosphatase 94 Ammonia Troponin I High Sens B-Natriuretic Peptide Total Protein 6.1 L Albumin 3.2 L Triglycerides Cholesterol LDL Cholesterol, Calc HDL Cholesterol Urine Color Yellow Urine Appearance Cloudy Urine pH 5.5 Ur Specific [place] 1.020 Urine Protein >=1000 (4+) H Urine Glucose (UA) 100 H Urine Ketones Negative Urine Blood Small (1+) H Urine Nitrite Negative Ur Leukocyte Esterase Moderate (2+) H Urine RBC 3-5 H Urine WBC >50 H Ur Squamous Epith Cells 11-20 Urine Bacteria 4+ Hyaline Casts >20 Influenza Type A (PCR) Influenza Type B (PCR) RSV RNA Qual (PCR) SARS-CoV-2 RNA (RT-PCR) 03/09/25 03/09/25 03/10/25 22:25 22:34 04:27 WBC 12.7 H RBC 3.26 L Hgb 9.3 L Hct 27.8 L MCV 85.3 MCH 28.5 MCHC 33.5 RDW 14.8 Plt Count 210 MPV 11.0 Immature Gran % (Auto) 0.5 H Neut % (Auto) 82.7 H Lymph % (Auto) 10.6 L [place] % (Auto) 5.8 Eos % (Auto) 0.2 Baso % (Auto) 0.2 Lymph # (Auto) 1.4 [place] # (Auto) 0.7 Eos # (Auto) 0.0 Baso # (Auto) 0.0 Abs Immat Gran (auto) 0.07 H Absolute Neuts (auto) 10.5 H Absolute Nucleated RBC 0.000 Nucleated RBC % (auto) 0.0 Smear Tech's Comments PT INR VBG pH 7.34 VBG pCO2 28 VBG pO2 134 VBG HCO3 16 L VBG O2 Saturation 100.0 VBG Base Excess -8.3 Sodium 138 Potassium 4.0 Chloride 114 H Carbon Dioxide 13 L Anion Gap 15 BUN 50 H Creatinine 1.55 H Estim Creat Clear Calc 30.3 Estimated GFR 32 POC Glucose 86 Random Glucose 96 Estimat Average Glucose 97 Hemoglobin A1c % 5.0 Lactic Acid Calcium 8.2 L Phosphorus Magnesium 2.1 Total Bilirubin 0.2 AST 32 H ALT 14 Alkaline Phosphatase 86 Ammonia Troponin I High Sens B-Natriuretic Peptide Total Protein 5.5 L Albumin 2.8 L Triglycerides 74 Cholesterol 127 LDL Cholesterol, Calc 73 HDL Cholesterol 40 L Urine Color Urine Appearance Urine pH Ur Specific [place] Urine Protein Urine Glucose (UA) Urine Ketones Urine Blood Urine Nitrite Ur Leukocyte Esterase Urine RBC Urine WBC Ur Squamous Epith Cells Urine Bacteria Hyaline Casts Influenza Type A (PCR) Influenza Type B (PCR) RSV RNA Qual (PCR) SARS-CoV-2 RNA (RT-PCR) 03/10/25 03/10/25 05:16 07:18 WBC RBC Hgb Hct MCV MCH MCHC RDW Plt Count MPV Immature Gran % (Auto) Neut % (Auto) Lymph % (Auto) [place] % (Auto) Eos % (Auto) Baso % (Auto) Lymph # (Auto) [place] # (Auto) Eos # (Auto) Baso # (Auto) Abs Immat Gran (auto) Absolute Neuts (auto) Absolute Nucleated RBC Nucleated RBC % (auto) Smear Tech's Comments PT INR VBG pH 7.34 VBG pCO2 28 VBG pO2 101 VBG HCO3 15 L VBG O2 Saturation 99.0 VBG Base Excess -9.0 Sodium Potassium Chloride Carbon Dioxide Anion Gap BUN Creatinine Estim Creat Clear Calc Estimated GFR POC Glucose 98 Random Glucose Estimat Average Glucose Hemoglobin A1c % Lactic Acid Calcium Phosphorus Magnesium Total Bilirubin AST ALT Alkaline Phosphatase Ammonia Troponin I High Sens B-Natriuretic Peptide Total Protein Albumin Triglycerides Cholesterol LDL Cholesterol, Calc HDL Cholesterol Urine Color Urine Appearance Urine pH Ur Specific [place] Urine Protein Urine Glucose (UA) Urine Ketones Urine Blood Urine Nitrite Ur Leukocyte Esterase Urine RBC Urine WBC Ur Squamous Epith Cells Urine Bacteria Hyaline Casts Influenza Type A (PCR) Influenza Type B (PCR) RSV RNA Qual (PCR) SARS-CoV-2 RNA (RT-PCR) Microbiology Microbiology Results: Microbiology 03/09/25 Unknown Urine clean catch - Clean Catch Midstream Urine Culture - Preliminary Culture in progress. Progress Note: A&P Assessment and plan (1) Diabetes mellitus: Status: Acute (2) Acute kidney injury: Status: Acute (3) Acute UTI: Status: Acute (4) Acute encephalopathy: Status: Acute (5) Altered mental status: Status: Acute (6) Dementia: Status: Acute Plan Neuro: Acute encephalopathy possibly due to metabolic encephalopathy secondary to urinary tract infection, patient has history of vascular dementia. CT of the head showed age-indeterminate pontine stroke, MRI of the brain showed chronic ischemic infarcts in basal ganglia and occipital area, no acute intracranial pathology. Normal MRA. On propofol for sedation, as needed fentanyl for analgesia; we will taper sedation and if needed we will switch to Precedex to assist with weaning from ventilator Close neurological status monitoring in the ICU every hour Cardiac: No issues, blood pressure stable Respiratory: Acute hypoxemic respiratory failure due to poor respiratory drive Currently on ventilator support On PRVC mode FiO2 further decreased to 25%, PEEP 5, TV 360, RR 16- we will wean the sedation and after that we will place her on pressure support for weaning trials Peak pressures and plateau pressures are under the curve Ventilator management bundle with head end elevation, aspiration precaution, chlorhexidine mouthwash, daily awakening trials, daily spontaneous breathing trials GI: We will start on tube feeds Renal: Acute on chronic renal failure Unclear baseline, sees a supervisor transferring and boxing outpatient Creatinine 1.5 this morning We will closely monitor I's and O's Avoid nephrotoxic medications Heme: Chronic anemia, closely monitor H&H, transfuse for hemoglobin less than 7 grams/deciliter Endocrine: has underlying diabetes mellitus Blood sugars not under control Continue Sliding scale insulin as needed Infectious disease: Possibly has a urinary tract infection Continue empiric Zosyn Musculoskeletal: Decubitus ulcer prevention protocol Lines: peripheral will take Schmitz Prophylaxis: Lovenox, pantoprazole Total critical care time spent is about 40 minutes on managing this critically ill patient with multiple organ failures. Critical care time spent is on ventilator management, changing ventilator settings, weaning trials, sedation management, close hemodynamic monitoring, review of labs and images at this time is excluding any procedural time. Quality Stroke Does the patient have a stroke diagnosis?: No VTE Prior VTE?: No VTE Risk Level:: Medical - moderate - high VTE Device Contraindication: N/A - Device Ordered VTE Drug Contraindication: N/A - Med Ordered
--- NOTE | 2025-03-10 08:42 | P.CDIM_ITS ---
PROVIDER RESPONSE TEXT: To clarify, the appropriate diagnosis supported by the clinical indicators: DM 2 with hyperglycemia QUERY TEXT: PHYSICIAN'S DOCUMENTATION REQUEST Date of Query: 03/10/2025 07:30 AM EDT Patient Name: Beatrice Brown Admit Date: 03/09/2025 Dear Jayjay Ordonez MD, A review of the medical record indicates additional documentation may be needed. Please review below and update the documentation accordingly. Clinical Indicators: history of DM with uncontrolled blood sugars sliding scale Insulin as needed glucose 312 Please clarify the following regarding the Complications of Diabetes Mellitus (DM): DM 2 with hyperglycemia No complications of DM Other (explain) Clinically unable to determine (explain) Thank you, Mayela Anderson RN Use of terms such as suspected, likely, concern for, or probable (associated with a specific diagnosis that is being evaluated, monitored, or treated as if it exists) are acceptable and can be coded in the inpatient setting, when documented at the time of discharge. Please use your independent medical judgment in providing your response. THIS QUERY IS PART OF THE PERMANENT MEDICAL RECORD
--- NOTE | 2025-03-10 08:55 | MHC.CLN ---
NUTRITION PATIENT IS INTUBATED AND SEDATED. REQUIRES NUTRITION/HYDRATION VIA TUBE FEEDING. RECOMMEND JEVITY 1.0 AT MAX GOAL RATE 50 ML PER HOUR PLUS FREE WATER FLUSHES 240 ML Q 8 HOURS. PROVIDES 1272 KCALS, 1547 TOTAL KCALS WITH SEDATION (25.5 KCALS/KG CMW); 53 G PROTEIN (.9 G/KG CMW); 1722 ML TOTAL FREE WATER FROM FORMULA AND FLUSH (28.4 ML/KG CMW). FOLLOW FOR TUBE FEED TOLERANCE, LABS, AND PLAN OF CARE. SEE CLINICAL NUTRITION ASSESSMENT 03/10/25.
--- NOTE | 2025-03-10 10:42 | PC.NURSE ---
Addendum entered by Geri Castellano RN 03/10/25 14:37: Extubated today approx. @ 1140, now on 2L NC Sp02 low 90s.? Alert & Oriented to person? Original Note: Assumed care @ 0700? Neuro/Resp:? Sedated, on fentanyl and propofol- per NOV. does not open eyes, does not tracks the speaker, does not follow commands, PRICE weakly. (passive ROM performed).? Resp: Vent. support? Cardiac: Sinus Rhythm/ bradicardia? GI: Unknown? LBM, +bowel sounds, OGT in place/clamp, POC Q6hr, on sliding scale insulin per NOV. . : Schmitz in place, patent /draining. Skin: Blanchable redness to buttock (repositioning maintained)? Temp: Afebrile Infectious: IV antibiotics? Lines: peripheral IV x2.
[2025-03-10 11:43] LABS: Glucose, Whole Blood 114 mg/dL (60-115)
--- NOTE | 2025-03-10 13:33 | PM.NEUROCN ---
History of Present Illness Data of Consult Service Date: 03/10/25 Primary Care Provider: Unknown Physician HPI Reason for consult: Altered mental status This is a 80-year-old lady with h/o vascular dementia, age-related physical debility, HTN, hypothyroidism, HLD, GERD was apparently at her baseline when the son met her [facility]. An hour later patient had an acute change in her mental status so was brought into the ED. She was presented in the ED she was flaccid, unresponsive so was intubated and placed on ventilator support. She is on a ventilator with propofol unable to give any information. Meaningful examination can not be conducted. There was no witnessed seizure activity. Her MRI shows no acute stroke. There is evidence of an old right occipital infarct diffuse atrophy and microvascular disease which are all chronic. MRA of the intracranial circulation is widely patent. She does appear to have a UTI. [facility] Past Medical History Medical History (Updated 03/10/25 @ 08:27 by Geri Castellano RN) Depression Hypertension Hypothyroid Stroke Social History Social History Household Members: None Housing: [facility] Do you presently have visiting nurse or other home services: No Unable to assess alcohol history related to: Unable to respond Patient Tobacco Use Status: Never used Tobacco Meds Allergies Allergy/AdvReac Type Severity Reaction Status Date / Time No Known Allergies Allergy Verified 03/09/25 17:06 Active Medications: Current Medications Dextrose (Dextrose 50 % 25 Gm/50 Ml Syringe) 25 gm IVPUSH Q15M PRN; Protocol PRN Reason: per Hypoglycemia Standing Ord. Enoxaparin Sodium (Enoxaparin Sodium 40 Mg/0.4 Ml Syringe) 40 mg SUBCUT Q24H ZAIN Last Admin: 03/09/25 17:51 Dose: 40 mg Glucose (Glucose Gel 15 Gm Gel..Gram.) 15 gm PO Q15M PRN; Protocol PRN Reason: per Hypoglycemia Standing Ord. Propofol (Diprivan) 1,000 mg in 100 mls @ 0 mls/hr IVCONT .Q0M ZAIN; Protocol Last Titration: 03/10/25 10:16 Dose: Infused Lactated Ringer's (Lr) 1,000 mls @ 100 mls/hr IVCONT .Q10H ZAIN Last Admin: 03/10/25 05:34 Dose: 100 mls/hr Piperacillin Sod/Tazobactam (Sod 2.25 gm/ Sodium Chloride) 50 mls @ 100 mls/hr IV Q6H [facility] Last Infusion: 03/10/25 12:26 Dose: Infused Fentanyl (Sublimaze/Ns) 1,000 mcg in 100 mls @ 0 mls/hr IVCONT .Q0M [facility]; Protocol Last Titration: 03/10/25 08:40 Dose: Infused Dexmedetomidine HCl (Precedex) 400 mcg in 100 mls @ 0 mls/hr IVCONT .Q0M [facility]; Protocol Insulin Human Lispro (Insulin Lispro 100 Unit/Ml 3 Ml Vial) 0 unit SUBCUT QIDACHS [facility]; Protocol Stop: 03/10/25 17:55 Last Admin: 03/10/25 11:55 Dose: Not Given Insulin Human Lispro (Insulin Lispro 100 Unit/Ml 3 Ml Vial) 0 unit SUBCUT QIDACHS [facility]; Protocol Stop: 03/10/25 17:55 Last Admin: 03/10/25 11:55 Dose: Not Given Naloxone HCl (Naloxone Hcl 0.4 Mg/Ml Vial) 0.2 mg IVPUSH Q2M PRN PRN Reason: Excessive sedation or RR < 8 Pantoprazole Sodium (Pantoprazole Sodium 40 Mg/10 Ml Vial) 40 mg IVPUSH DAILY@0630 [facility] Last Admin: 03/10/25 05:34 Dose: 40 mg Home Medications ?Medication ?Instructions ?Recorded ?Confirmed ?Last Taken ?Type acetaminophen 325 mg tablet 650 mg PO Q6H PRN Fever Or Pain 03/09/25 03/09/25 Unknown History aluminum-mag hydroxide-simethicone 15 ml PO Q6H PRN Indigestion 03/09/25 03/09/25 Unknown History 400 mg-400 mg-40 mg/5 mL oral susp (Mylanta Maximum Strength) amlodipine 10 mg tablet 10 mg PO DAILY 03/09/25 03/09/25 Unknown History bisacodyl 10 mg rectal suppository 10 mg TX DAILY PRN Constipation 03/09/25 03/09/25 Unknown History cholecalciferol (vitamin D3) 25 25 mcg PO DAILY 03/09/25 03/09/25 Unknown History mcg (1,000 unit) tablet (Vitamin D3) cyanocobalamin (vitamin B-12) 1,000 mcg PO DAILY 03/09/25 03/09/25 Unknown History 1,000 mcg tablet (Vitamin B-12) erythromycin 5 mg/gram (0.5 %) eye 1 inch ophthalmic (eye) QID 03/09/25 03/09/25 Unknown History ointment irbesartan 300 mg tablet 300 mg PO DAILY 03/09/25 03/09/25 Unknown History levothyroxine 112 mcg tablet 112 mcg PO DAILY@0600 03/09/25 03/09/25 Unknown History magnesium hydroxide 400 mg/5 mL 30 ml PO DAILY PRN Constipation 03/09/25 03/09/25 Unknown History oral suspension (Milk of Magnesia) melatonin 3 mg tablet 3 mg PO BEDTIME 03/09/25 03/09/25 Unknown History menthol 5 % topical patch (Icy Hot 1 patch topical DAILY 03/09/25 03/09/25 Unknown History (menthol)) polyethylene glycol 3350 17 17 g PO DAILY PRN Constipation 03/09/25 03/09/25 Unknown History gram/dose oral powder (Miralax) sertraline 25 mg tablet 25 mg PO DAILY 03/09/25 03/09/25 Unknown History sertraline 50 mg tablet 50 mg PO DAILY 03/09/25 03/09/25 Unknown History simvastatin 10 mg tablet 10 mg PO BEDTIME 03/09/25 03/09/25 Unknown History sodium phosphates 19 gram-7 118 ml TX DAILY PRN Constipation 03/09/25 03/09/25 Unknown History gram/118 mL enema (Fleet Enema) trazodone 50 mg tablet 25 mg PO BEDTIME 03/09/25 03/09/25 Unknown History Physical Exam Vital Signs: Vital Signs: Last Vital Signs Temp 98.4 F 03/10/25 12:00 Pulse 84 03/10/25 12:00 Resp 22 H 03/10/25 12:00 BP 167/43 H 03/10/25 12:00 Pulse Ox 92 03/10/25 12:00 O2 Del Method Nasal Cannula 03/10/25 12:00 O2 Flow Rate 2 03/10/25 12:00 FiO2 25 03/10/25 11:00 BMI result Body Mass Index 33.6 Neuro: Other: Patient is on a ventilator on propofol. No meaningful neurological examination can be conducted. Results Labs 03/10/25 04:27 03/10/25 04:27 Labs: Short CBC 03/09/25 03/09/25 03/10/25 Range/Units 16:25 22:24 04:27 WBC 20.6 H 15.8 H 12.7 H (4.8-10.8) X10*3/uL Hgb 11.7 L 10.3 L 9.3 L (12.0-16.0) g/dl Hct 36.2 L 30.8 L 27.8 L (37.0-47.0) % Plt Count 350 237 D 210 (160-400) X10*3/uL BMP 03/09/25 03/09/25 03/10/25 16:25 22:24 04:27 Sodium 137 138 138 Potassium 4.6 4.5 4.0 Chloride 109 H 114 H 114 H Carbon Dioxide 20 L 17 L 13 L BUN 52 H 52 H 50 H Creatinine 1.51 H 1.52 H 1.55 H Calcium 8.4 8.1 L 8.2 L Liver Function 03/09/25 03/09/25 03/10/25 Range/Units 16:25 22:24 04:27 Total Bilirubin 0.2 0.2 0.2 (0.0-1.0) mg/dL AST 26 29 32 H (5-31) U/L ALT 17 13 14 (0-31) U/L Alkaline Phosphatase 115 94 86 (39-117) U/L Albumin 3.6 3.2 L 2.8 L (3.5-5.0) g/dL Urine 03/09/25 Range/Units 17:01 Urine Color Yellow Urine Appearance Cloudy Urine pH 5.5 (5.0-9.0) Ur Specific [place] 1.020 (1.005-1.025) Urine Protein >=1000 (4+) H (Neg-Trace) mg/dL Urine Glucose (UA) 100 H (Negative) mg/dL Microbiology Microbiology Results: Microbiology 03/09/25 Unknown Urine clean catch - Clean Catch Midstream Urine Culture - Preliminary Culture in progress. Assessment and Plan (1) Acute encephalopathy: Status: Acute This appears to be a infectious/metabolic encephalopathy superimposed on baseline dementia with a remote right occipital stroke and cerebral microvascular disease. There is no evidence of an acute stroke. Her imaging studies including MRI and MRA were personally reviewed Recommendation: Ventilatory support treat metabolic and infectious causes. EEG is recommended to rule out any subclinical seizure activity. (2) Dementia: Status: Acute Procedures Date of Service Date of Service: 03/10/25
--- NOTE | 2025-03-10 15:17 | MHC.CM.PN ---
Pt intubated in ICU: Call placed to pt's son, Lorenzo who states pt has only been at [facility] for a short time but cannot live without extensive assistance. [facility] pt is dependent on staff for ADL's, incontinent x2, verbal but not oriented to time, place or situation. Pt is mostly bed bound per staff. HCP copy requested - awaiting fax. IMM left in pt's room for Lorenzo who will be visiting. Referred back to [facility]. Pt will need BLS.
[2025-03-10 16:24] LABS: Glucose, Whole Blood 129 mg/dL (60-115)
[2025-03-10 18:31] LABS: Glucose, Whole Blood 116 mg/dL (60-115)
[2025-03-10 22:16] LABS: Glucose, Whole Blood 111 mg/dL (60-115)
[2025-03-11] VITALS (17 sets, daily range): BP systolic 120–197; BP diastolic 45–104; PULSE 59–98; RESP 10–25; TEMP 36.3–36.9; O2SAT 90–100; BMI 31.4; BMI 31.0
--- NOTE | 2025-03-11 | EEG_ITS ---
This is a 16 channel EEG with an EKG lead. Background EEG rhythm is mixed theta beta 5-20 microvolt posteriorly lower amplitude fast anteriorly. Photic stimulation does not produce any significant driving. Some lead and muscle artifacts are noted. Cardiac lead does not reveal any significant abnormality. No asymmetry paroxysmal tendency sharp waves or spikes are noted. Impression: Generalized slowing with no evidence of seizure disorder. MTDD
[2025-03-11] MEDS: Lactated Ringers 1,000 ML 100 ML IVCONT ×2 (01:03→11:05)
[2025-03-11 04:42] LABS: VBG HCO3 18 mmol/L (22-26); VBG O2 % Saturation 99.0 %
[2025-03-11 05:00] LABS: Venous Blood Gas Refer to POC result
[2025-03-11 05:10] LABS: MANUAL DIFF FLAG NO
[2025-03-11 05:11] LABS: Hematocrit 29.9 % (37.0-47.0); Hemoglobin 10.1 g/dl (12.0-16.0); Imm Gran Abs Auto 0.07 X10*3/uL (0.00-0.03); Imm Gran Pct Auto 0.6 % (0.0-0.4); Lymphocytes Absolute Auto 1.3 X10*3/uL (1.2-4.9); Mean Corpuscular HGB Conc 33.8 g/dl (31.0-35.0); Mean Corpuscular Hemoglobin 28.6 pg (27.0-33.0); Mean Corpuscular Volume 84.7 fL (80.0-98.0); NRBC Abs Auto 0.000 X10*3/uL (0.0-0.012); NRBC Pct Auto 0.0 /100WBC (0.0-0.2); Platelet Count 227 X10*3/uL (160-400); Red Blood Count 3.53 X10*6/uL (4.20-5.50); White Blood Count 12.3 X10*3/uL (4.8-10.8)
[2025-03-11 05:28] LABS: Alanine Aminotransferase 23 U/L (0-31); Albumin Level 3.1 g/dL (3.5-5.0); Alkaline Phosphatase 88 U/L (39-117); Anion Gap 16 (12-20); Aspartate Amino Transferase 36 U/L (5-31); Blood Urea Nitrogen 38 mg/dL (9-16); Calcium 8.3 mg/dL (8.4-10.2); Carbon Dioxide 17 mmol/L (22-29); Chloride 114 mmol/L (96-108); Creatinine Clr Calc Pharmacy 29.8; Estimated Glomerular Filt Rate 32; Magnesium 2.0 mg/dL (1.6-2.6); Potassium 4.3 mmol/L (3.3-5.1); Sodium 143 mmol/L (135-145); Total Protein 5.9 g/dL (6.5-8.0)
[2025-03-11 05:56] LABS: Glucose, Whole Blood 110 mg/dL (60-115)
--- NOTE | 2025-03-11 09:19 | MHC.CLN ---
F/U PATIENT EXTUBATED 03/10. DIET=CARDIAC.\ SADIQ=12 AND SKIN WITH REDNESS TO BUTTOCK. RD TO MONITOR WEEKLY.
--- NOTE | 2025-03-11 11:29 | P.PNCC_ITS ---
Subjective Subjective Date of Service: 03/11/25 Interval History: Doing well, slightly confused Blood pressure is on higher side, restarted her home medications Critical Care Time (minutes): 35 Physical Exam 2 Vital Signs: Vital Signs: Last Vital Signs Temp 97.5 F 03/11/25 09:00 Pulse 69 03/11/25 11:00 Resp 25 H 03/11/25 11:00 BP 167/57 H 03/11/25 11:00 Pulse Ox 100 03/11/25 11:00 O2 Del Method Room Air 03/11/25 11:00 O2 Flow Rate 2 03/11/25 04:00 FiO2 25 03/10/25 11:00 BMI result Body Mass Index 31.0 General: Elderly lady, slightly confused, pleasant, not in acute distress Nutritional Appearance: well nourished and overweight Eyes: appearance normal, both eyes and all related structures; Alignment and Position: alignment normal and position normal Neck: No lymphadenopathy, no thyromegaly Resp: bilateral air entry equal, occasional added sounds present Cardio: Regular rate, regular rhythm; Heart sounds: S1 normal heart sound present and S2 normal heart sound present GI: soft, nontender, no guarding, no hepatosplenomegaly : bladder normal to inspection, bladder normal to palpation, no renal angle tenderness Skin: no rashes or lesions noted and elasticity normal Neuro: Confusion present, holds on a good conversation and moves all extremities Objective Data Labs 03/11/25 04:31 03/11/25 04:31 Labs: Laboratory Results - last 24 hr 03/09/25 03/10/25 03/10/25 16:25 11:39 16:16 WBC RBC Hgb Hct MCV MCH MCHC RDW Plt Count MPV Immature Gran % (Auto) Neut % (Auto) Lymph % (Auto) [place] % (Auto) Eos % (Auto) Baso % (Auto) Lymph # (Auto) [place] # (Auto) Eos # (Auto) Baso # (Auto) Abs Immat Gran (auto) Absolute Neuts (auto) Absolute Nucleated RBC Nucleated RBC % (auto) Smear Path Review SEE NOTE VBG pH VBG pCO2 VBG pO2 VBG HCO3 VBG O2 Saturation VBG Base Excess Sodium Potassium Chloride Carbon Dioxide Anion Gap BUN Creatinine Estim Creat Clear Calc Estimated GFR POC Glucose 114 129 H Random Glucose Calcium Phosphorus Magnesium Total Bilirubin AST ALT Alkaline Phosphatase Total Protein Albumin 03/10/25 03/10/25 03/11/25 18:28 22:11 04:31 WBC 12.3 H RBC 3.53 L Hgb 10.1 L Hct 29.9 L MCV 84.7 MCH 28.6 MCHC 33.8 RDW 15.2 Plt Count 227 MPV 10.9 Immature Gran % (Auto) 0.6 H Neut % (Auto) 83.7 H Lymph % (Auto) 10.4 L [place] % (Auto) 5.0 Eos % (Auto) 0.1 Baso % (Auto) 0.2 Lymph # (Auto) 1.3 [place] # (Auto) 0.6 Eos # (Auto) 0.0 Baso # (Auto) 0.0 Abs Immat Gran (auto) 0.07 H Absolute Neuts (auto) 10.3 H Absolute Nucleated RBC 0.000 Nucleated RBC % (auto) 0.0 Smear Path Review VBG pH VBG pCO2 VBG pO2 VBG HCO3 VBG O2 Saturation VBG Base Excess Sodium 143 Potassium 4.3 Chloride 114 H Carbon Dioxide 17 L Anion Gap 16 BUN 38 H Creatinine 1.54 H Estim Creat Clear Calc 29.8 Estimated GFR 32 POC Glucose 116 H 111 Random Glucose 105 Calcium 8.3 L Phosphorus 4.1 Magnesium 2.0 Total Bilirubin 0.3 AST 36 H ALT 23 Alkaline Phosphatase 88 Total Protein 5.9 L Albumin 3.1 L 03/11/25 03/11/25 04:37 05:49 WBC RBC Hgb Hct MCV MCH MCHC RDW Plt Count MPV Immature Gran % (Auto) Neut % (Auto) Lymph % (Auto) [place] % (Auto) Eos % (Auto) Baso % (Auto) Lymph # (Auto) [place] # (Auto) Eos # (Auto) Baso # (Auto) Abs Immat Gran (auto) Absolute Neuts (auto) Absolute Nucleated RBC Nucleated RBC % (auto) Smear Path Review VBG pH 7.45 H VBG pCO2 26 VBG pO2 127 VBG HCO3 18 L VBG O2 Saturation 99.0 VBG Base Excess -4.0 Sodium Potassium Chloride Carbon Dioxide Anion Gap BUN Creatinine Estim Creat Clear Calc Estimated GFR POC Glucose 110 Random Glucose Calcium Phosphorus Magnesium Total Bilirubin AST ALT Alkaline Phosphatase Total Protein Albumin Microbiology Microbiology Results: Microbiology 03/09/25 Unknown Urine clean catch - Clean Catch Midstream Urine Culture - Preliminary Gram negative fernando 03/09/25 16:26 Blood - Venous Blood Culture - Preliminary No growth after 24 hours. 03/09/25 16:25 Blood - Venous Blood Culture - Preliminary No growth after 24 hours. Progress Note: A&P Assessment and plan (1) Diabetes mellitus: Status: Acute (2) Acute kidney injury: Status: Acute (3) Acute UTI: Status: Acute (4) Stroke: Status: Acute (5) Acute encephalopathy: Status: Acute (6) Altered mental status: Status: Acute (7) Dementia: Status: Acute (8) Acute respiratory failure: Status: Acute Plan Neuro: Acute encephalopathy possibly due to metabolic encephalopathy secondary to urinary tract infection, patient has history of vascular dementia. 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 Normal MRA. Restarted home sertraline and trazodone today Cardiac: Hypertension: Blood pressure is on higher side today, restarted her home medications including amlodipine and losartan Respiratory: Extubated yesterday, breathing stable GI: Oral feeds Renal: Chronic kidney disease stage IIIB: Unclear baseline, sees a director enterprise systems outpatient Creatinine stable around 1.5 which might be her baseline We will closely monitor I's and O's Avoid nephrotoxic medications Heme: Chronic anemia, closely monitor H&H, transfuse for hemoglobin less than 7 grams/deciliter Endocrine: has underlying diabetes mellitus Blood sugars not under control Continue Sliding scale insulin as needed Hypothyroidism: Restarted home dose of levothyroxine Infectious disease: urinary tract infection- urine cultures growing Gram-negative rods; Continue empiric Zosyn Musculoskeletal: Decubitus ulcer prevention protocol Lines: peripheral Prophylaxis: Lovenox, pantoprazole We will transfer her to floor today Quality Stroke Does the patient have a stroke diagnosis?: No VTE Prior VTE?: No VTE Risk Level:: Medical - moderate - high VTE Device Contraindication: N/A - Device Ordered VTE Drug Contraindication: N/A - Med Ordered
[2025-03-11 11:53] LABS: Glucose, Whole Blood 95 mg/dL (60-115)
--- NOTE | 2025-03-11 13:05 | MHC.CM.PN ---
EMR REVIEWED. PT HAS BEEN DOWNGRADED TO THE MED-TELE FLOOR. CM HAS REQUESTED [facility] SEND COPY OF HCP ,TO BE FAXED TO [phone]. CM WILL CONTINUE TO FOLLOW DC PLAN.
--- NOTE | 2025-03-11 13:19 | MHC.SL.SWA ---
Speech Pathologist Impression: swallow WFL Risk of Aspiration Due to: s/p extubation cognition Dysphasia Diet Status: no change Liquid Consistency and Strategies for Safe Swallow: Liquid Intake Recommendation: Thin Solid Food Consistency: Dietary Recommendations: Regular Oral Medication Intake: Whole with Liquid Please contact the pharmacy regarding appropriate crushable or liquid drug formulations that are available whenever modified delivery is recommended. Compensatory Strategies and Precautions to be Taken for Safe Swallow: sit upright Supervision While Eating and Drinking for Safe Swallow: Tray Set Up Recommendation for Speech: Inpatient FRAME PULLEY MORTISING MACHINE OPERATOR tx Comment: Pt seen for clinical swallow evaluation at bedside. Swallow WFL. Recommend pt continue w/ regular solids, thin liquids, pills whole w/ liquid. Tray set up & supervision during meals d/t confusion and tremulous hands. FRAME PULLEY MORTISING MACHINE OPERATOR to continue to follow to ensure toleration of diet and monitor vocal quality s/p extubation. Horticulture/Floriculture Teacher Clinican/Clinical Fellow: No Supervisory Statement: I have reviewed and agree with the student/clinical fellow's documentation: N/A Speech Language Pathologist: Sarah Mitchell M.A., CCC-FRAME PULLEY MORTISING MACHINE OPERATOR
[2025-03-11 16:15] LABS: Glucose, Whole Blood 98 mg/dL (60-115)
--- NOTE | 2025-03-11 16:39 | PM.EVENT ---
Event Note Date of Service: 03/12/25 Event Note: patient seen and examined seems improving ,mental status also improving physical exam and a&P as per icu note. Time Spent With Patient Time: Total time managing care of this patient today ____ minutes.
[2025-03-11] MEDS: traZODone HCL 25 MG HALFTAB PO (21:25)
[2025-03-11 21:31] LABS: Glucose, Whole Blood 105 mg/dL (60-115)
[2025-03-12] VITALS (9 sets, daily range): BP systolic 124–187; BP diastolic 60–94; PULSE 64–86; RESP 16–22; TEMP 36.3–37.2; O2SAT 92–96; BMI 35.1; BMI 35.5
[2025-03-12 07:44] LABS: Hematocrit 28.1 % (37.0-47.0); Hemoglobin 9.7 g/dl (12.0-16.0); Mean Corpuscular HGB Conc 34.5 g/dl (31.0-35.0); Mean Corpuscular Hemoglobin 28.7 pg (27.0-33.0); Mean Corpuscular Volume 83.1 fL (80.0-98.0); NRBC Abs Auto 0.000 X10*3/uL (0.0-0.012); NRBC Pct Auto 0.0 /100WBC (0.0-0.2); Platelet Count 237 X10*3/uL (160-400); Red Blood Count 3.38 X10*6/uL (4.20-5.50); White Blood Count 10.3 X10*3/uL (4.8-10.8)
[2025-03-12 07:46] LABS: Glucose, Whole Blood 102 mg/dL (60-115)
[2025-03-12 07:59] LABS: Anion Gap 14 (12-20); Blood Urea Nitrogen 31 mg/dL (9-16); Calcium 8.3 mg/dL (8.4-10.2); Carbon Dioxide 19 mmol/L (22-29); Chloride 111 mmol/L (96-108); Creatinine Clr Calc Pharmacy 31.7; Estimated Glomerular Filt Rate 34; Potassium 3.5 mmol/L (3.3-5.1); Sodium 140 mmol/L (135-145)
[2025-03-12 12:06] LABS: Glucose, Whole Blood 111 mg/dL (60-115)
[2025-03-12 15:26] LABS: Glucose, Whole Blood 101 mg/dL (60-115)
--- NOTE | 2025-03-12 15:58 | MHC.SL.SWA ---
Speech Pathologist Impression: Risk of Aspiration Due to: Dysphasia Diet Status: Recommend continue on Regular diet with thin liquids, pills whole with liquid. Assist patient with set up of tray, assure that patient can readily access items on tray, cut larger pieces of meat if needed. No further IN FILE OPERATOR service indicated, will d/c speech. Liquid Consistency and Strategies for Safe Swallow: Liquid Intake Recommendation: Thin Liquid Intake Strategies: Small Sips Solid Food Consistency: Dietary Recommendations: Regular Additional Modifications to Solid Foods: Oral Medication Intake: Whole with Liquid Please contact the pharmacy regarding appropriate crushable or liquid drug formulations that are available whenever modified delivery is recommended. Compensatory Strategies and Precautions to be Taken for Safe Swallow: Supervision While Eating and Drinking for Safe Swallow: Tray Set Up Foods to Avoid: Swallowing Recommended Treatments: Recommendation for Speech: Comment: Patient seen at lunch with Son and sitter present in room. Patient was awake and alert, was quite sarcastic in commentary but generally cooperative. Patient stated that there was noting wrong with her swallow Lunch was a slab of turkey meat, mashed potatoes and undercooked sliced carrots (meal that son reported ordering). Patient clearly needed turkey cut up for her which IN FILE OPERATOR did, added gravy to meat and potatoes, and then placed on table for patient to access meal independently. Patient then was able to feed self bites of the turkey, producing a normal oral and pharyngeal phase of swallow, and also was observed drinking water by straw with no difficulty. Patient appears to be improved in her ability to self feed, though clearly continues to need assistance with a regular tray if food comes uncut. Patient presented as tolerating current, least restrictive diet of Regular with thin liquids. Recommend continue on Regular diet with thin liquids, pills whole with liquid. Assist patient with set up of tray, assure that patient can readily access items on tray, cut larger pieces of meat if needed. No further IN FILE OPERATOR service indicated, will d/c speech.. Frequency/Duration: Date Range for Service Req: Timeline to reassess: Production Engine Repairer Clinican/Clinical Fellow: No Supervisory Statement: I have reviewed and agree with the student/clinical fellow's documentation: N/A Speech Language Pathologist: Lexie Her M.A., [facility]-IN FILE OPERATOR
--- NOTE | 2025-03-12 18:09 | P.PNIM_ITS ---
Subjective Subjective Date of Service: 03/13/25 Interval History: encephalopathy uti Review of Systems more awake ,conversive Physical Exam 2 Vital Signs: Vital Signs: Last Vital Signs Temp 97.4 F 03/12/25 16:00 Pulse 71 03/12/25 16:00 Resp 18 03/12/25 16:00 BP 184/78 H 03/12/25 16:00 Pulse Ox 94 03/12/25 16:00 O2 Del Method Room Air 03/12/25 16:00 O2 Flow Rate 2 03/11/25 04:00 FiO2 25 03/10/25 11:00 BMI result Body Mass Index 35.1 Appearance: Alert.? Oriented x1 cvs: rrr, [id number] . res: clear to auscultation ,no rhonchii or wheezing abd: no rebound or guarding ,nt, bs present. ext pulses present , no cyanosis . neuro: nonfocal. Objective Data Active Medications Amlodipine Besylate (Amlodipine Besylate 10 Mg Tablet) 10 mg PO DAILY [facility]; Protocol Last Admin: 03/12/25 09:10 Dose: 10 mg Documented By: TOM Cefuroxime Axetil (Cefuroxime Axetil 500 Mg Tablet) 500 mg PO BID [facility] Dextrose (Dextrose 50 % 25 Gm/50 Ml Syringe) 25 gm IVPUSH Q15M PRN; Protocol PRN Reason: per Hypoglycemia Standing Ord. Enoxaparin Sodium (Enoxaparin Sodium 40 Mg/0.4 Ml Syringe) 40 mg SUBCUT Q24H [facility] Last Admin: 03/12/25 16:21 Dose: 40 mg Documented By: TOM Glucose (Glucose Gel 15 Gm Gel..Gram.) 15 gm PO Q15M PRN; Protocol PRN Reason: per Hypoglycemia Standing Ord. Hydralazine HCl (Hydralazine Hcl 20 Mg/Ml Vial) 10 mg IVPUSH Q4H PRN; Protocol PRN Reason: SBP > 160 Last Admin: 03/12/25 16:31 Dose: 10 mg Documented By: TOM Levothyroxine Sodium (Levothyroxine Sodium 112 Mcg Tablet) 112 mcg PO DAILY@0600 [facility] Last Admin: 03/12/25 05:23 Dose: 112 mcg Documented By: TANYA Pantoprazole Sodium (Pantoprazole Sodium 40 Mg/10 Ml Vial) 40 mg IVPUSH DAILY@0630 [facility] Last Admin: 03/12/25 05:23 Dose: 40 mg Documented By: TANYA Sertraline HCl (Sertraline Hcl 50 Mg Tablet) 50 mg PO DAILY [facility] Last Admin: 03/12/25 09:10 Dose: 50 mg Documented By: TOM Trazodone HCl (Trazodone Hcl 25 Mg Halftab) 25 mg PO BEDTIME [facility] Last Admin: 03/11/25 21:25 Dose: 25 mg Documented By: TANYA Valsartan (Valsartan 160 Mg Tablet) 160 mg PO DAILY [facility] Last Admin: 03/12/25 09:10 Dose: 160 mg Documented By: TOM Labs 03/12/25 06:58 03/12/25 06:58 Labs: Laboratory Results - last 24 hr 03/11/25 03/12/25 03/12/25 20:43 06:58 07:33 MCV 83.1 MCH 28.7 MCHC 34.5 RDW 14.9 Plt Count 237 MPV 10.6 Absolute Nucleated RBC 0.000 Nucleated RBC % (auto) 0.0 Anion Gap 14 Estim Creat Clear Calc 31.7 Estimated GFR 34 POC Glucose 105 102 Random Glucose 100 Calcium 8.3 L 03/12/25 03/12/25 11:49 15:10 MCV MCH MCHC RDW Plt Count MPV Absolute Nucleated RBC Nucleated RBC % (auto) Anion Gap Estim Creat Clear Calc Estimated GFR POC Glucose 111 101 Random Glucose Calcium Microbiology Microbiology Results: Microbiology 03/09/25 Unknown Urine Culture - Final Urine clean catch - Clean Catch Midstream Proteus mirabilis 03/09/25 16:26 Blood Culture - Preliminary Blood - Venous No growth after 48 hours. 03/09/25 16:25 Blood Culture - Preliminary Blood - Venous No growth after 48 hours. Assessment and Plan (1) Acute kidney injury: Status: Acute (2) Acute UTI: Status: Acute Plan 80-year-old lady with past medical history of vascular dementia, dementia, age- related physical debility, HTN, hypothyroidism, HLD, GERD was apparently at her baseline when the son met her mom at the correction. An hour later patient had an acute change in her mental status so was brought into the ED. when she was presented in the ED she was flaccid, unresponsive so was intubated and placed on ventilator support. CT of the head was done which showed age- indeterminate stroke in the miah. Acute encephalopathy possibly due to metabolic encephalopathy secondary to urinary tract infection, patient has history of vascular dementia. 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 Normal MRA. Restarted home sertraline and trazodone seen by neuro-encephalopathy secondary to metabolic/infection related, EEG added. uti-antibitocs changed per urine cultures Hypertension: Blood pressure is on higher side today, restarted her home medications including amlodipine and losartan Chronic kidney disease stage IIIB: Unclear baseline, sees a certified physician's assistant outpatient Creatinine stable around 1.5 which might be her baseline We will closely monitor I's and O's Avoid nephrotoxic medications diabetes mellitus: Blood sugars not under control Continue Sliding scale insulin as needed Hypothyroidism: Restarted home dose of levothyroxine Infectious disease: urinary tract infection- urine cultures growing Gram-negative rods; Continue empiric Zosyn Musculoskeletal: Decubitus ulcer prevention protocol Lines: peripheral Prophylaxis: Lovenox, pantoprazole Above management discussed with the patient's son in detail length. Quality Stroke Does the patient have a stroke diagnosis?: No VTE Prior VTE?: No VTE Risk Level:: Medical - moderate - high VTE Device Contraindication: N/A - Device Ordered VTE Drug Contraindication: N/A - Med Ordered
[2025-03-12 20:46] LABS: Glucose, Whole Blood 105 mg/dL (60-115)
[2025-03-12] MEDS: traZODone HCL 25 MG HALFTAB PO (21:18)
[2025-03-13 04:00] VITALS: BP 130/81; PULSE 73; RESP 16; TEMP 36.9; O2SAT 96
[2025-03-13 06:00] VITALS: BMI 34.4
[2025-03-13 07:24] LABS: Glucose, Whole Blood 73 mg/dL (60-115)
[2025-03-13 08:00] VITALS: BP 151/60; PULSE 71; RESP 18; TEMP 36.8; O2SAT 96
[2025-03-13 11:23] LABS: Glucose, Whole Blood 134 mg/dL (60-115)
[2025-03-13 12:00] VITALS: BP 132/61; PULSE 67; RESP 18; TEMP 36.6; O2SAT 95
--- NOTE | 2025-03-13 15:06 | MHC.CM.PN ---
Per rounds, pt. is not ready to DC, she will return to SNF when cleared.
[2025-03-13 15:47] LABS: Glucose, Whole Blood 111 mg/dL (60-115)
--- NOTE | 2025-03-13 15:49 | HO.PM.IMPN ---
Subjective Subjective Date of Service: 03/13/25 Interval History: encephalopathy uti Review of Systems looks similar , mental status similar Physical Exam Vital Signs: Vital Signs: Last Vital Signs Temp 97.8 F 03/13/25 12:00 Pulse 67 03/13/25 12:00 Resp 18 03/13/25 12:00 BP 132/61 03/13/25 12:00 Pulse Ox 95 03/13/25 12:00 O2 Del Method Room Air 03/13/25 08:00 O2 Flow Rate 2 03/11/25 04:00 FiO2 25 03/10/25 11:00 BMI result Body Mass Index 34.4 Appearance: Alert.? Oriented x1 cvs: rrr, [id number] . res: clear to auscultation ,no rhonchii or wheezing abd: no rebound or guarding ,nt, bs present. ext pulses present , no cyanosis . neuro: nonfocal. Objective Data Active Medications Amlodipine Besylate (Amlodipine Besylate 10 Mg Tablet) 10 mg PO DAILY [facility]; Protocol Last Admin: 03/13/25 08:22 Dose: 10 mg Documented By: TOM Cefuroxime Axetil (Cefuroxime Axetil 500 Mg Tablet) 500 mg PO BID [facility] Last Admin: 03/13/25 08:22 Dose: 500 mg Documented By: TOM Dextrose (Dextrose 50 % 25 Gm/50 Ml Syringe) 25 gm IVPUSH Q15M PRN; Protocol PRN Reason: per Hypoglycemia Standing Ord. Enoxaparin Sodium (Enoxaparin Sodium 40 Mg/0.4 Ml Syringe) 40 mg SUBCUT Q24H [facility] Last Admin: 03/12/25 16:21 Dose: 40 mg Documented By: TOM Glucose (Glucose Gel 15 Gm Gel..Gram.) 15 gm PO Q15M PRN; Protocol PRN Reason: per Hypoglycemia Standing Ord. Hydralazine HCl (Hydralazine Hcl 20 Mg/Ml Vial) 10 mg IVPUSH Q4H PRN; Protocol PRN Reason: SBP > 160 Last Admin: 03/12/25 16:31 Dose: 10 mg Documented By: TOM Levothyroxine Sodium (Levothyroxine Sodium 112 Mcg Tablet) 112 mcg PO DAILY@0600 [facility] Last Admin: 03/13/25 06:12 Dose: 112 mcg Documented By: EULALIA Pantoprazole Sodium (Pantoprazole Sodium 40 Mg/10 Ml Vial) 40 mg IVPUSH DAILY@0630 [facility] Last Admin: 03/13/25 06:11 Dose: 40 mg Documented By: EULALIA Sertraline HCl (Sertraline Hcl 50 Mg Tablet) 50 mg PO DAILY [facility] Last Admin: 03/13/25 08:22 Dose: 50 mg Documented By: TOM Trazodone HCl (Trazodone Hcl 25 Mg Halftab) 25 mg PO BEDTIME [facility] Last Admin: 03/12/25 21:18 Dose: 25 mg Documented By: EULALIA Valsartan (Valsartan 160 Mg Tablet) 160 mg PO DAILY [facility] Last Admin: 03/13/25 08:22 Dose: 160 mg Documented By: TOM Labs 03/12/25 06:58 03/12/25 06:58 Labs: Laboratory Results - last 24 hr 03/12/25 03/13/25 03/13/25 20:42 07:17 11:19 POC Glucose 105 73 134 H 03/13/25 15:36 POC Glucose 111 Assessment and Plan (1) Acute kidney injury: Status: Acute (2) Acute UTI: Status: Acute Plan 80-year-old lady with past medical history of vascular dementia, dementia, age-related physical debility, HTN, hypothyroidism, HLD, GERD was apparently at her baseline when the son met her mom at the correction. An hour later patient had an acute change in her mental status so was brought into the ED. when she was presented in the ED she was flaccid, unresponsive so was intubated and placed on ventilator support. CT of the head was done which showed age-indeterminate stroke in the miah. Acute encephalopathy possibly due to metabolic encephalopathy secondary to urinary tract infection, patient has history of vascular dementia. 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 Normal MRA. Restarted home sertraline and trazodone seen by neuro-encephalopathy secondary to metabolic/infection related, EEG done /pending uti-antibitocs changed per urine cultures Hypertension: Blood pressure is on higher side today, restarted her home medications including amlodipine and losartan Chronic kidney disease stage IIIB: Unclear baseline, sees a putty mixer and applier outpatient Creatinine stable around 1.5 which might be her baseline We will closely monitor I's and O's Avoid nephrotoxic medications diabetes mellitus: Blood sugars not under control Continue Sliding scale insulin as needed Hypothyroidism: Restarted home dose of levothyroxine Infectious disease: urinary tract infection- urine cultures growing Gram-negative rods; Continue empiric Zosyn Musculoskeletal: Decubitus ulcer prevention protocol Lines: peripheral Prophylaxis: Lovenox, pantoprazole Above management discussed with the patient's son in detail length. Quality Stroke Does the patient have a stroke diagnosis?: No VTE Prior VTE?: No VTE Risk Level:: Medical - moderate - high VTE Device Contraindication: N/A - Device Ordered VTE Drug Contraindication: N/A - Med Ordered
[2025-03-13 16:00] VITALS: BP 156/66; PULSE 68; RESP 18; TEMP 36.7; O2SAT 96
[2025-03-13 19:59] VITALS: BP 179/78; PULSE 68; RESP 16; TEMP 36.6; O2SAT 98
[2025-03-13 20:38] LABS: Glucose, Whole Blood 99 mg/dL (60-115)
[2025-03-13] MEDS: traZODone HCL 25 MG HALFTAB PO (20:50)
[2025-03-13 23:18] VITALS: BP 168/83; PULSE 76; RESP 18; TEMP 36.7; O2SAT 96
[2025-03-14] VITALS (12 sets, daily range): BP systolic 137–202; BP diastolic 58–84; PULSE 67–84; RESP 16–18; TEMP 36.5–37.1; O2SAT 93–96; BMI 35.2
[2025-03-14 08:00] LABS: Glucose, Whole Blood 115 mg/dL (60-115)
[2025-03-14 10:51] LABS: Glucose, Whole Blood 101 mg/dL (60-115)
[2025-03-14 16:06] LABS: Glucose, Whole Blood 113 mg/dL (60-115)
--- NOTE | 2025-03-14 16:56 | P.PNIM_ITS ---
Subjective Subjective Date of Service: 03/14/25 Interval History: htn Review of Systems no new c/o feeling slowly improving Physical Exam 2 Vital Signs: Vital Signs: Last Vital Signs Temp 97.8 F 03/14/25 15:18 Pulse 84 03/14/25 15:18 Resp 18 03/14/25 15:18 BP 192/78 H 03/14/25 15:18 Pulse Ox 93 03/14/25 15:18 O2 Del Method Room Air 03/14/25 15:18 O2 Flow Rate 2 03/11/25 04:00 FiO2 25 03/10/25 11:00 BMI result Body Mass Index 35.2 Appearance: Alert.? Oriented x1 cvs: rrr, [id number] . res: clear to auscultation ,no rhonchii or wheezing abd: no rebound or guarding ,nt, bs present. ext pulses present , no cyanosis . neuro: nonfocal. Objective Data Active Medications Al Hydroxide/Mg Hydroxide (Magnesium Hydrox/Alum Hydrox 30 Ml Oral.Susp) 15 ml PO Q6H PRN PRN Reason: Indigestion Amlodipine Besylate (Amlodipine Besylate 10 Mg Tablet) 10 mg PO DAILY [facility]; Protocol Last Admin: 03/14/25 10:11 Dose: 10 mg Documented By: DAYANA Bisacodyl (Bisacodyl 10 Mg Supp.Rect) 10 mg [place] DAILY PRN PRN Reason: Constipation Cefuroxime Axetil (Cefuroxime Axetil 500 Mg Tablet) 500 mg PO BID [facility] Last Admin: 03/14/25 10:11 Dose: 500 mg Documented By: DAYANA Cyanocobalamin (Cyanocobalamin (Vitamin B-12) 1,000 Mcg Tablet) 1,000 mcg PO DAILY [facility] Dextrose (Dextrose 50 % 25 Gm/50 Ml Syringe) 25 gm IVPUSH Q15M PRN; Protocol PRN Reason: per Hypoglycemia Standing Ord. Enoxaparin Sodium (Enoxaparin Sodium 40 Mg/0.4 Ml Syringe) 40 mg SUBCUT Q24H [facility] Last Admin: 03/13/25 17:43 Dose: 40 mg Documented By: TOM Erythromycin (Erythromycin Base 0.5% Oph Oin 1 Gm Tube) 2.54 cm EYE-BOTH QID [facility] Glucose (Glucose Gel 15 Gm Gel..Gram.) 15 gm PO Q15M PRN; Protocol PRN Reason: per Hypoglycemia Standing Ord. Hydralazine HCl (Hydralazine Hcl 20 Mg/Ml Vial) 10 mg IVPUSH Q4H PRN; Protocol PRN Reason: SBP > 160 Last Admin: 03/14/25 12:25 Dose: 10 mg Documented By: DAYANA Comments: aware of BP Hydralazine HCl (Hydralazine Hcl 10 Mg Tablet) 10 mg PO BID [facility]; Protocol Last Admin: 03/14/25 10:10 Dose: 10 mg Documented By: DAYANA Levothyroxine Sodium (Levothyroxine Sodium 112 Mcg Tablet) 112 mcg PO DAILY@0600 [facility] Last Admin: 03/14/25 05:43 Dose: 112 mcg Documented By: SAPNA Magnesium Hydroxide (Milk Of Magnesia 30 Ml Oral.Susp) 30 ml PO DAILY PRN PRN Reason: Constipation Melatonin (Melatonin 3 Mg Tablet) 3 mg PO BEDTIME [facility] Non-Formulary Medication (Menthol [Icy Hot (Menthol)]) 1 patch TOPICAL DAILY [facility] Non-Formulary Medication (Simvastatin) 10 mg PO BEDTIME [facility] Pantoprazole Sodium (Pantoprazole Sodium 40 Mg/10 Ml Vial) 40 mg IVPUSH DAILY@0630 [facility] Last Admin: 03/14/25 05:43 Dose: 40 mg Documented By: SAPNA Sertraline HCl (Sertraline Hcl 50 Mg Tablet) 50 mg PO DAILY [facility] Last Admin: 03/14/25 10:10 Dose: 50 mg Documented By: DAYANA Sertraline HCl (Sertraline Hcl 25 Mg Tablet) 25 mg PO DAILY [facility] Trazodone HCl (Trazodone Hcl 25 Mg Halftab) 25 mg PO BEDTIME [facility] Last Admin: 03/13/25 20:50 Dose: 25 mg Documented By: SAPNA Valsartan (Valsartan 160 Mg Tablet) 160 mg PO DAILY [facility] Last Admin: 03/14/25 10:11 Dose: 160 mg Documented By: DAYANA Vitamin D (Cholecalciferol (Vitamin D3) 25 Mcg Tablet) 25 mcg PO DAILY [facility] Labs 03/12/25 06:58 03/12/25 06:58 Labs: Laboratory Results - last 24 hr 03/13/25 03/14/25 03/14/25 20:28 07:53 10:44 POC Glucose 99 115 101 03/14/25 15:52 POC Glucose 113 Assessment and Plan (1) Acute kidney injury: Status: Acute (2) Acute UTI: Status: Acute Plan 80-year-old lady with past medical history of vascular dementia, dementia, age- related physical debility, HTN, hypothyroidism, HLD, GERD was apparently at her baseline when the [facility]. An hour later patient had an acute change in her mental status so was brought into the ED. when she was presented in the ED she was flaccid, unresponsive so was intubated and placed on ventilator support. CT of the head was done which showed age- indeterminate stroke in the miah. Acute encephalopathy possibly due to metabolic encephalopathy secondary to urinary tract infection, patient has history of vascular dementia. 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 Normal MRA. Restarted home sertraline and trazodone seen by neuro-encephalopathy secondary to metabolic/infection related, EEG done /pending uti-antibitocs changed per urine cultures Hypertension: Blood pressure is on higher side today, restarted her home medications including amlodipine and losartan adjusted hydralazine 25 mg po bid Chronic kidney disease stage IIIB: Unclear baseline, sees a designer/writer outpatient Creatinine stable around 1.5 which might be her baseline We will closely monitor I's and O's Avoid nephrotoxic medications diabetes mellitus: Blood sugars not under control Continue Sliding scale insulin as needed Hypothyroidism: Restarted home dose of levothyroxine Infectious disease: urinary tract infection- urine cultures growing Gram-negative rods; Continue empiric Zosyn Musculoskeletal: Decubitus ulcer prevention protocol Lines: peripheral Prophylaxis: Lovenox, pantoprazole Above management discussed with the patient's son in detail length. Quality Stroke Does the patient have a stroke diagnosis?: No VTE Prior VTE?: No VTE Risk Level:: Medical - moderate - high VTE Device Contraindication: N/A - Device Ordered VTE Drug Contraindication: N/A - Med Ordered
[2025-03-14] MEDS: Erythromycin Base 0.5% Oph Oin 1 GM TUBE 1 CM EYE-BOTH ×2 (17:05→20:11)
[2025-03-14] MEDS: traZODone HCL 25 MG HALFTAB PO (20:10)
[2025-03-14 20:25] LABS: Glucose, Whole Blood 104 mg/dL (60-115)
[2025-03-15] VITALS (7 sets, daily range): BP systolic 140–172; BP diastolic 62–78; PULSE 66–80; RESP 16–18; TEMP 36.6–36.8; O2SAT 95–96; BMI 35.6
[2025-03-15] MEDS: Erythromycin Base 0.5% Oph Oin 1 GM TUBE 1 CM EYE-BOTH ×2 (08:18→12:48)
--- NOTE | 2025-03-15 11:15 | MHC.CM.PN ---
Per MD, Patient is medically cleared for dc to return to LTC @ [facility] today at 2:30 via [facility]. CM left a detailed message for Primary Contact/Son/Lorenzo @ [phone] informing him, of the dc plan and addressing the IMM.
--- NOTE | 2025-03-15 12:32 | P.DS_ITS ---
DS: Providers Provider Date of Service: 03/15/25 Date of admission: 03/09/25 17:41 Date of discharge: 03/15/25 Primary care physician: Sandra Chao MD Consults: 03/09/25 17:36 Consult to Neurology Stat Consulting Provider: [facility] Reason for consultation: stroke Has provider been notified: No Attending physician on discharge: Kishore Bautista Discharging clinician: Kishore Bautista DS: Diagnosis Discharge Diagnosis (1) Acute kidney injury: Status: Acute (2) Acute UTI: Status: Acute DS: Summary Hospital Course Hospital Course: HPI:80-year-old lady with past medical history of vascular dementia, dementia, age-related physical debility, HTN, hypothyroidism, HLD, GERD was apparently at her baseline when the son met her mom at the halfway. An hour later patient had an acute change in her mental status so was brought into the ED. when she was presented in the ED she was flaccid, unresponsive so was intubated and placed on ventilator support. CT of the head was done which showed age- indeterminate stroke in the miah. She has a MOLST form as DNR/DNI, the healthcare proxy Lorenzo was contacted at phone number [phone] who reversed her code status( as per icu). Hospital course: Patient was admitted for acute metabolic encephalopathy possibly secondary to urinary tract infection-patient required ICU admission for encephalopathy and requiring intubation: Subsequently workup with a CT head and MRI negative for acute stroke(please see detailed report in imaging section), was given IV Zosyn for UTI: With above supportive care-patient seems to be improved, extubated. In addition seen by Neurology -thought that encephalopathy infectious that metabolic causes, also recommended EEG was done which is negative. Blood culture negative, urine culture grew Proteus mirabilis-sensitive to ceftriaxone, and switched to p.o. Ceftin upon discharge.echo ef 55-60% normal. Encephalopathy thought to be related to underlying infection/metabolic causes. With the above supportive care her mental status seems to improving, as per the son at bedside. Patient LORENZA is also improving with the hydration and p.o. intake. Patient creatinine stayed around 1.4 -1.5 range, discussed with nephrology and icu Dr. pham -if does not improve further, then likely new baseline: Continue to monitor outpatient. Hypotension: Continue amlodipine/irbesartan, in addition added hydralazine 25 t.i.d. adjust as per blood pressure outpatient, dm: Last hemoglobin A1c is 5,? Unclear if patient has diabetes. Monitor fingersticks in the rehab, check hemoglobin A1c outpatient. plan: Ceftin 500 mg p.o. b.i.d. for 6 days Monitor CBC, BMP, hemoglobin A1c as above. Monitor blood pressure closely, in addition to amlodipine/it irbesartan and we added hydralazine 25 mg p.o. b.i.d. Above management discussed with the patient's son in detail length he understand and in agreement with the plan, time spent 40 minute, all question answered. Time Attestation Total time managing care of this patient today: 40 mintues. Discharge Coordination Time (in mins): 40 Quality: Safe Use of Opioids Does Pt have an Active Cancer Diagnosis on the Problem List?: No Quality: Stroke Does the patient have a stroke diagnosis?: No Physical Exam Vital Signs: Vital Signs: Last Vital Signs Temp 98.3 F 03/15/25 11:31 Pulse 68 03/15/25 11:31 Resp 16 03/15/25 11:31 BP 172/78 H 03/15/25 11:31 Pulse Ox 95 03/15/25 11:31 O2 Del Method Room Air 03/15/25 11:31 O2 Flow Rate 2 03/11/25 04:00 FiO2 25 03/10/25 11:00 BMI result Body Mass Index 35.6 Appearance: Alert.? Oriented x1 cvs: rrr, x8o2rupcg . res: clear to auscultation ,no rhonchii or wheezing abd: no rebound or guarding ,nt, bs present. ext pulses present , no cyanosis . neuro: nonfocal. DS: Data Data Completed and Pending Labs on day of discharge: Laboratory Results - last 24 hr 03/14/25 03/14/25 15:52 20:16 POC Glucose 113 104 Imaging Chest x-ray: Radiologist's impression: ITS Impressions Head CT 03/09/25 15:32 IMPRESSION: Small focal hypodensity in the left side of the miah could represent age-indeterminate ischemic change. Chronic right [employer] territory infarct with encephalomalacia. Mri/mra :No acute infarct, intracranial hemorrhage or mass lesions. 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 Moderate generalized cerebral volume loss and chronic microvascular ischemic changes of the periventricular and subcortical white matter. echo: Normal left ventricular size and systolic function. The visually estimated ejection fraction is between 55-60%. - Normal right ventricular cavity size and systolic function. - There is mild to moderate aortic valve stenosis. Discharge Plan Discharge Anticipated Discharge Date/Time: 03/15/25 12:11 Patient Disposition: er [facility] Discharge Diagnosis: acute encephalopaty with uti, htn Referrals: [facility] [Outside] - 1 Week Sandra Chao MD [Primary Care Provider, Medical] - 1 Week Discharge Medications: New hydralazine 25 mg Tablet 25 mg PO TID Qty: 1 0RF Protocol: Hold for SBP< HOLD for SBP < : 90 cefuroxime axetil 500 mg Tablet 500 mg PO BID Qty: 12 0RF Continued acetaminophen 325 mg Tablet 650 mg PO Q6H MDD 3 gm/24h PRN (Reason: Fever Or Pain) trazodone 50 mg tablet 25 mg PO BEDTIME simvastatin 10 mg tablet 10 mg PO BEDTIME cyanocobalamin (vitamin B-12) [Vitamin B-12] 1,000 mcg Tablet 1,000 mcg PO DAILY melatonin 3 mg Tablet 3 mg PO BEDTIME magnesium hydroxide [Milk of Magnesia] 400 mg/5 mL Suspension 30 ml PO DAILY PRN (Reason: Constipation) Rx Instructions: (Step 1) If no BM for 3 days amlodipine 10 mg tablet 10 mg PO DAILY bisacodyl 10 mg Suppository 10 mg OK DAILY PRN (Reason: Constipation) Rx Instructions: If no BM for 8 hours after M.O.M erythromycin 5 mg/gram (0.5 %) ointment 1 inch ophthalmic (eye) QID Rx Instructions: End date 03/10/25 Fleet Enema 19-7 gram/118 mL Enema 118 ml OK DAILY PRN (Reason: Constipation) Rx Instructions: (Step 3) If no BM for 8 hours after Bisacodyl Supp. sertraline 25 mg tablet 25 mg PO DAILY Rx Instructions: Give with 50 mg for a total dose =75 mg polyethylene glycol 3350 [Miralax] 17 gram/dose Powder 17 g PO DAILY PRN (Reason: Constipation) sertraline 50 mg tablet 50 mg PO DAILY Rx Instructions: Give with 25 mg for total dose =75 mg irbesartan 300 mg tablet 300 mg PO DAILY alum-mag hydroxide-simeth [Mylanta Maximum Strength] 400-400-40 mg/5 mL Suspension 15 ml PO Q6H PRN (Reason: Indigestion) levothyroxine 112 mcg tablet 112 mcg PO DAILY@0600 Icy Hot (menthol) 5 % Adhesive Patch,Medicated 1 patch TOPICAL DAILY Rx Instructions: (B) knees cholecalciferol (vitamin D3) [Vitamin D3] 25 mcg (1,000 unit) Tablet 25 mcg PO DAILY Discharge Orders: Discharge Order (Routine); Ordered 03/15/25 Ordered By: Kishore Bautista Diet: Advance to usual diet Activity on Discharge: As tolerated Stand Alone Forms: Patient Portal Discharge page Print Language: Kinyarwanda Other Ambulatory Orders: Basic Metabolic Panel (Routine) Timeframe: 2 Days Facility: [facility] - Location: Laboratory Ordered By: Kishore Bautista Care Plan Goals: as below. Health Concerns: As above. Plan of Treatment: Ceftin 500 mg p.o. b.i.d. for 6 days Monitor CBC, BMP, hemoglobin A1c as above. Monitor blood pressure closely, in addition to amlodipine/it irbesartan and we added hydralazine 25 mg p.o. b.i.d. Assessment: as Above.
--- NOTE | 2025-04-08 13:04 | P.CDIM_ITS ---
PROVIDER RESPONSE TEXT: To clarify, the appropriate diagnosis supported by the clinical indicators: Sepsis was present on admission and is now resolved QUERY TEXT: PHYSICIAN'S DOCUMENTATION REQUEST Date of Query: 04/01/2025 08:11 AM EDT Patient Name: Beatrice Brown Admit Date: 03/09/2025 Dear Kishore Bautista MD, A review of the medical record indicates additional documentation may be needed. Please review below and update the documentation accordingly. Clinical Indicators: Per ER physician: Patient met sepsis with UTI received IV Zosyn WBC 20.6 pulse 90 respiratory rate 35 The diagnosis of Sepsis was documented on 03/09/25 but is not consistently noted in subsequent documentation or the Discharge Summary Please clarify the following: Sepsis was present on admission and is now resolved Sepsis was present on admission and is still being monitored, evaluated, or treated Sepsis was ruled out Sepsis is still a likely, suspected, probable diagnosis Other (explain) Clinically unable to determine (explain) Thank you, Mayela Anderson RN Use of terms such as suspected, likely, concern for, or probable (associated with a specific diagnosis that is being evaluated, monitored, or treated as if it exists) are acceptable and can be coded in the inpatient setting, when documented at the time of discharge. Please use your independent medical judgment in providing your response. THIS QUERY IS PART OF THE PERMANENT MEDICAL RECORD
== END 2025-03-15 14:55 | DRG 871 ==
LOC: HO.ED 17:36 → HO.EDOVER 17:47 → HO.ICU 19:15 → HO.IMC 03-11 11:22
PROVIDERS: Physician Assistant Medical; Admitting Provider Internal Medicine Critical Care Medicine; Emergency Provider Emergency Medicine; PCP Internal Medicine; Visit Provider Internal Medicine
DX: A41.9 Sepsis, unspecified organism (principal); G93.41 Metabolic encephalopathy; J96.01 Acute respiratory failure with hypoxia; N17.0 Acute kidney failure with tubular necrosis; N39.0 Urinary tract infection, site not specified; I12.9 Hypertensive chronic kidney disease with stage 1 through stage 4 chronic kidney disease, or unspecified chronic kidney disease; N18.32 Chronic kidney disease, stage 3b; E11.22 Type 2 diabetes mellitus with diabetic chronic kidney disease; D63.1 Anemia in chronic kidney disease; E11.65 Type 2 diabetes mellitus with hyperglycemia; B96.4 Proteus (mirabilis) (morganii) as the cause of diseases classified elsewhere; E03.9 Hypothyroidism, unspecified; F01.50 Vascular dementia, unspecified severity, without behavioral disturbance, psychotic disturbance, mood disturbance, and anxiety; Z20.822 Contact with and (suspected) exposure to COVID-19; Z79.890 Hormone replacement therapy; Z79.899 Other long term (current) drug therapy
CPT/HCPCS: 36415; 70450; 70544; 70551; 71045; 80048; 80053; 80061; 81001; 82140; 82803; 82947; 83036; 83605; 83735; 83880; 84100; 84484; 85025; 85027; 85610; 87040; 87086; 87088; 87186; 87637; 92526; 92610; 93005; 93306; 94002; 94003; 94799; 95816; 99285; J0330; J0360; J1650; J2405; J2470; J2543; J2704; J3010; J7120

== ENCOUNTER → 2025-03-09 16:21 | Outpatient (BNV) | payer MEDICARE, MEDICAID, SELFPAY | PROVIDERS: Admitting Provider Internal Medicine Critical Care Medicine; Emergency Provider Emergency Medicine; Visit Provider Internal Medicine Cardiovascular Disease | DX: I44.0 Atrioventricular block, first degree (principal); I49.3 Ventricular premature depolarization | CPT/HCPCS: 93010 ==

== ENCOUNTER → 2025-03-09 16:23 | Outpatient (BNV) | payer MEDICARE, MEDICAID, SELFPAY | PROVIDERS: Admitting Provider Internal Medicine Critical Care Medicine; Emergency Provider Emergency Medicine; Visit Provider Radiology Diagnostic Radiology | DX: I63.81 Other cerebral infarction due to occlusion or stenosis of small artery (principal); Z46.82 Encounter for fitting and adjustment of non-vascular catheter | CPT/HCPCS: 70544; 70551 ==

== ENCOUNTER 2025-03-09 17:41 | Outpatient (BNV) | payer MEDICARE, MEDICAID, SELFPAY | END 2025-03-10 07:00 | PROVIDERS: Admitting Provider Internal Medicine Critical Care Medicine; Emergency Provider Emergency Medicine; Visit Provider Internal Medicine Cardiovascular Disease | DX: I35.0 Nonrheumatic aortic (valve) stenosis (principal) | CPT/HCPCS: 93306 ==

== ENCOUNTER → 2025-03-09 17:41 | Outpatient (BNV) | payer MEDICARE, MEDICAID, SELFPAY | PROVIDERS: Admitting Provider Internal Medicine Critical Care Medicine; Emergency Provider Emergency Medicine; PCP Internal Medicine; Visit Provider Internal Medicine | DX: N17.9 Acute kidney failure, unspecified (principal); N39.0 Urinary tract infection, site not specified | CPT/HCPCS: 99231; 99499 ==

== ENCOUNTER → 2025-03-09 17:41 | Outpatient (BNV) | payer MEDICARE, MEDICAID, SELFPAY | PROVIDERS: Admitting Provider Internal Medicine Critical Care Medicine; Emergency Provider Emergency Medicine; PCP Internal Medicine; Visit Provider Psychiatry & Neurology Neurology | DX: R94.01 Abnormal electroencephalogram [EEG] (principal) | CPT/HCPCS: 95816 ==

== ENCOUNTER → 2025-03-09 17:41 | Outpatient (BNV) | payer MEDICARE, MEDICAID, SELFPAY | PROVIDERS: Admitting Provider Internal Medicine Critical Care Medicine; Emergency Provider Emergency Medicine; Visit Provider Internal Medicine Critical Care Medicine | DX: E11.9 Type 2 diabetes mellitus without complications (principal); N17.9 Acute kidney failure, unspecified; N39.0 Urinary tract infection, site not specified; G93.40 Encephalopathy, unspecified; F01.50 Vascular dementia, unspecified severity, without behavioral disturbance, psychotic disturbance, mood disturbance, and anxiety | CPT/HCPCS: 99223; 99291 ==

== ENCOUNTER → 2025-03-09 17:41 | Outpatient (BNV) | payer MEDICARE, MEDICAID, SELFPAY | PROVIDERS: Admitting Provider Internal Medicine Critical Care Medicine; Emergency Provider Emergency Medicine; Visit Provider Psychiatry & Neurology Neurology | DX: G93.41 Metabolic encephalopathy (principal); F01.50 Vascular dementia, unspecified severity, without behavioral disturbance, psychotic disturbance, mood disturbance, and anxiety | CPT/HCPCS: 99223 ==

== ENCOUNTER 2025-04-14 09:28 | Inpatient (IN) | payer MEDICARE, MEDICAID, SELFPAY ==
[2025-04-14] VITALS (11 sets, daily range): BP systolic 130–183; BP diastolic 50–86; PULSE 58–72; RESP 17–20; TEMP 36.2–36.9; O2SAT 89–95; BMI 34.0
--- NOTE | ~2025-04-14 | CT_ITS ---
EXAMINATION: CT HEAD WITHOUT CONTRAST (STROKE PROTOCOL) CLINICAL INFORMATION: Stroke protocol. Slurred speech COMPARISON: None available. TECHNIQUE: Contiguous axial imaging was performed from the skull base to vertex without intravenous administration of contrast. This CT examination was performed using dose optimization techniques as appropriate, variously including the following: *Automated exposure control *Adjustment of mA and/or kV according to patient size (this includes techniques or standardized protocols for targeted exams where dose is matched to indication/reason for exam; i.e. extremities or head) *Use of iterative reconstruction technique FINDINGS: There is an old right HIGHWAY ENGINEERING TEACHER territory infarct with hypodensity, similar to previous study 03/09/2025. There is small lacunar infarction in the right mesial temporal lobe/external capsule, stable. Previously described hypodensity left side of miah is not visualized on this time. Hypodensity seen in the right central miah is visualized likely artifact secondary to patient motion There is no new areas of acute ischemic changes. No acute intra-axial or extra-axial bleed. There is calcification of left leaflet of tentorium. There is diffuse periventrical hypodensity in both cerebral hemispheres without mass effect. The lateral ventricles are symmetrical but enlarged and so are the cortical sulci. Bone windows reveal no calvarial abnormality. Bilateral paranasal sinuses and mastoid air cells are well-aerated. There is no scalp soft tissue abnormality. CT/CT head for STROKE IMPRESSION: No acute intracranial process seen. There is chronic right ROBINA territory infarct. Old right external capsules/mesial temporal lobe lacunar infarct is seen. Hypodensity in the right central miah is likely artifact. No major change since the previous exam 03/09/2025. This critical result was discussed by phone with Dr. FLORENTINO HOOK in the ER at 9:56 a.m. on 04/14/2025. It was ascertained that the content and urgency of the report was understood at the time of direct communication. Electronically signed by: Charles Smith MD 04/14/2025 10:02 AM EDT
--- NOTE | ~2025-04-14 | CT_ITS ---
EXAMINATION: CT CHEST WITHOUT IV CONTRAST INDICATION: ? Pneumonia COMPARISON: Comparison is made with the prior examination dated performed earlier in the day. TECHNIQUE: Helical CT scan of the chest was performed without intravenous contrast. Coronal and sagittal reformatted images were generated and reviewed. This CT exam was performed with one or more of the following dose reduction techniques: automated exposure control, adjustment of the mA and/or kV according to patient size, use of iterative reconstruction technique. DLP: 551 mGy-cm CHEST: THYROID: The thyroid is unremarkable. LUNGS: There is subsegmental atelectasis in the lower lobes. MEDIASTINUM: There is no mediastinal lymphadenopathy. ZIYAD: Evaluation of the hilar regions is limited by lack of intravenous contrast material. CARDIOVASCULATURE: The heart is enlarged. There is a small pericardial effusion which measures up to 2.1 cm in thickness at the base of the heart. The thoracic aorta is normal in caliber. Pulmonary vascular congestion. DEGREE OF CORONARY CALCIFICATION: moderate PLEURA: There are [id number] bilateral pleural effusions. No pneumothorax. MAIN AIRWAYS: The mainstem bronchi and proximal branches are patent. AXILLA: There is no axillary lymphadenopathy. BONES AND SOFT TISSUES: Unremarkable UPPER ABDOMEN: The visualized portions of the liver, spleen, and left adrenal gland have an unremarkable unenhanced appearance. There is a 2.7 cm nodule of the right adrenal gland which demonstrates areas of fat attenuation, consistent with a myelolipoma. CT/CT chest wo IV con IMPRESSION: Cardiomegaly. Small to moderate bilateral pleural effusions and small pericardial effusion. Subsegmental atelectasis in both lower lobes. Electronically signed by: Celestino Sawyer MD 04/14/2025 02:14 PM EDT
--- NOTE | ~2025-04-14 | CT_ITS ---
EXAMINATION: CTA NECK WITH CONTRAST (STROKE) CTA BRAIN WITH CONTRAST (STROKE) CLINICAL INFORMATION: Slurred speech. Suspect acute stroke. Assess for major vessel occlusion. Please call report. COMPARISON: No prior CT angiogram head neck. Correlated to CT head dated April 14, 2025. TECHNIQUE: CTA of the head and neck was performed in the axial plane from the mediastinum to the skull vertex using 70 mL Omnipaque 350 intravenous contrast. Additional reformatted multiplanar images including maximum intensity projection MIP images are generated on the CT workstation. This CT examination was performed using dose optimization techniques as appropriate, variously including the following: *Automated exposure control *Adjustment of mA and/or kV according to patient size (this includes techniques or standardized protocols for targeted exams where dose is matched to indication/reason for exam; i.e. extremities or head) *Use of iterative reconstruction technique. DLP: 672 mGy centimeter. FINDINGS: The degree of stenosis determined by criteria similar to NASCET. Chest CTA: Calcified plaques in the aortic wall and its main branches without focal stenosis intimal flap or aneurysm. Neck CTA: Right CCA: Normal enhancement. No focal stenosis. No intimal flap. Right ICA: Large calcified plaque in the proximal segment representing 80-90% stenosis. No intimal flap. Tortuosity. Retropharyngeal trajectory. Left CCA: Normal patency. No focal stenosis. No intimal flap. Tortuosity. Left ICA: Calcified plaque representing 40% stenosis. No intimal flap. No focal stenosis. Tortuosity. Retropharyngeal trajectory. V1/V2 segments: Normal patency. Tortuosity. Calcified plaque in the origin of the left vertebral artery. No focal stenosis. No intimal flap. Codominant. Origin from the subclavian artery. Brain CTA: Anterior cerebral circulation: ICAs: Normal patency. Calcified plaques in the cavernous petrous and supraclinoid segments. No focal stenosis. No abrupt cut off. MCA's: Normal patency. No focal stenosis. No abrupt cut off. Bifurcation/trifurcation demonstrated no vascular irregularity. ACAs: Normal patency. No focal stenosis. No abrupt cut off. Anterior communicating artery is not patent. Ophthalmic arteries are patent. I do not see the posterior communicating arteries. Posterior cerebral circulation: V3/V4 segments: Calcified plaques. Normal patency. No focal stenosis. No intimal flap. The posterior inferior cerebral arteries are patent. Basilar artery is patent without focal stenosis or intimal flap. Anterior inferior cerebral arteries are patent. The superior cerebellar arteries are patent. Probable focal stenosis in the origin of the left superior cerebellar artery. spa experience coordinator: Abrupt cut off in the right P2 segment. Left spa experience coordinator patent without focal stenosis or abrupt cut off.. Ancillary findings: Bilateral pleural effusions, moderate to large volume. Pulmonary patchy groundglass. Normal patency of the main pulmonary artery and its main left and right branches included in the [id number]. There is an encephalomalacia involving the right cuneus/precuneus and to a lesser extent lingual gyrus. Old lacunar infarct, basal ganglia posterior left external capsule. Multilevel cervical spondylosis. Calcification of the posterior longitudinal ligament C3 C5 resulting in central spinal canal stenosis. CT/CT angio head neck STROKE IMPRESSION: 80-90% stenosis secondary to calcified plaque, right ICA. Atherosclerosis disease, petrous cavernous and supracavernous segments both ICAs. Probable old occlusion, P2 segment right MEDICAL LABORATORY TECHNOLOGIST. Encephalomalacia, right cuneus/precuneus lingual gyrus secondary to old infarct, right MEDICAL LABORATORY TECHNOLOGIST territory No acute main cerebral artery occlusion or embolus. . This critical test result is communicated to: Emergency physician Dr. Srikanth Palma at 10:19 AM on April 14, 2025, using [employer] . Electronically signed by: Shine Melendez MD 04/14/2025 10:20 AM EDT
--- NOTE | ~2025-04-14 | XR_ITS ---
EXAMINATION: XR CHEST CLINICAL INFORMATION: mental status changes COMPARISON: March 09, 2025. TECHNIQUE: Frontal view of the chest was obtained. FINDINGS: Mild prominence of the interstitial markings with indistinct margins in the perihilar region. No gross consolidation pleural fissure pneumothorax. Cardiomediastinal silhouette size is normal. Calcified plaque thoracic aortic arch. The endotracheal tube and NG tube have been removed. Moderate to severe degenerative changes in the right shoulder. Multilevel lumbar spondylosis. Patient's large body habitus/obesity. XR/XR chest 1V IMPRESSION: Mild pulmonary edema. Status post extubation and NG tube removal . Electronically signed by: Shine Melendez MD 04/14/2025 10:23 AM EDT
--- NOTE | 2025-04-14 09:36 | ED.AMS ---
HPI - Altered Mental Status General Chief Complaint: Stroke Stated Complaint: ?STROKE,GARBLED/SEARCHING,RECENT UTI,FROM PER EMS Time Seen by Provider: 04/14/25 09:33 Source: EMS Mode of arrival: EMS History of Present Illness HPI narrative: This is 80 years old female [facility] brought in with altered mental status and slurred speech. Unknown last time that she was seen normal. She arrived awake and alert at this time she has no focal deficit she has a history of UTI she was seen in this emergency room March 12 she was intubated for respiratory failure MD complaint: altered mental status Onset (ago): unknown Severity: moderate Consistency of symptoms: waxing and waning Associated symptoms: denies other symptoms Related Data Home Medications ?Medication ?Instructions ?Recorded ?Confirmed acetaminophen 325 mg tablet 650 mg PO Q6H PRN Fever Or Pain 03/09/25 04/14/25 aluminum-mag hydroxide-simethicone 15 ml PO Q6H PRN Indigestion 03/09/25 04/14/25 400 mg-400 mg-40 mg/5 mL oral susp (Mylanta Maximum Strength) amlodipine 10 mg tablet 10 mg PO DAILY 03/09/25 04/14/25 bisacodyl 10 mg rectal suppository 10 mg CO DAILY PRN Constipation 03/09/25 04/14/25 cholecalciferol (vitamin D3) 25 25 mcg PO DAILY 03/09/25 04/14/25 mcg (1,000 unit) tablet (Vitamin D3) cyanocobalamin (vitamin B-12) 1,000 mcg PO DAILY 03/09/25 04/14/25 1,000 mcg tablet (Vitamin B-12) irbesartan 300 mg tablet 300 mg PO DAILY 03/09/25 04/14/25 levothyroxine 112 mcg tablet 112 mcg PO DAILY@0600 03/09/25 04/14/25 magnesium hydroxide 400 mg/5 mL 30 ml PO DAILY PRN Constipation 03/09/25 04/14/25 oral suspension (Milk of Magnesia) melatonin 3 mg tablet 3 mg PO BEDTIME 03/09/25 04/14/25 menthol 5 % topical patch (Icy Hot 1 patch topical DAILY 03/09/25 04/14/25 (menthol)) polyethylene glycol 3350 17 17 g PO DAILY PRN Constipation 03/09/25 04/14/25 gram/dose oral powder (Miralax) sertraline 25 mg tablet 12.5 mg PO DAILY 03/09/25 04/14/25 sertraline 50 mg tablet 25 mg PO DAILY 03/09/25 04/14/25 simvastatin 10 mg tablet 10 mg PO BEDTIME 03/09/25 04/14/25 sodium phosphates 19 gram-7 118 ml CO DAILY PRN Constipation 03/09/25 04/14/25 gram/118 mL enema (Fleet Enema) trazodone 50 mg tablet 25 mg PO BEDTIME 03/09/25 04/14/25 carvedilol 3.125 mg tablet (Coreg) 3.125 mg PO BID 04/14/25 04/14/25 nystatin 100,000 unit/gram topical 1 appl topical BID 04/14/25 04/14/25 powder (Nyamyc) Allergies Allergy/AdvReac Type Severity Reaction Status Date / Time No Known Allergies Allergy Verified 04/14/25 10:09 Review of Systems Review of Systems: Yes Unobtainable due to mental condition and Unobtainable due to mental status [facility] Past Medical History Medical History Diabetes mellitus Depression Hypertension Hypothyroid Stroke Social History Social History Household Members: None Housing: Residential Do you presently have visiting nurse or other home services: No Unable to assess alcohol history related to: Unable to respond Comment: sitter Patient Tobacco Use Status: Never used Tobacco Smoked in Last 30 Days: No Use of substances other than those prescribed or required for medical reasons: No Advance Directives: Yes Advance Directives on File: Yes Advance Directives Date on File: 03/09/25 Do you have a plan to hurt others: No Plan Physical Exam ED Exam Exam: No acute distress awake and alert right now Vital Signs: Vital Signs - 24 hr 04/14/25 10:07 04/14/25 10:13 04/14/25 12:24 Temperature 97.2 F 97.5 F 98.4 F Pulse Rate 72 72 65 Respiratory Rate 20 20 18 Blood Pressure 183/86 H 183/86 H 167/66 H Pulse Oximetry 95 95 94 Oxygen Delivery Method Nasal Cannula Nasal Cannula Room Air 04/14/25 14:41 Temperature Pulse Rate Respiratory Rate Blood Pressure 162/63 H Pulse Oximetry Oxygen Delivery Method BMI result Body Mass Index 34.0 Const General: cooperative Nutritional Appearance: well nourished Orientation/consciousness: patient oriented x3 Limitations: no limitations HENMT Head: Yes normal to inspection General nose exam: Normal external nose present Face and sinus: Yes normal facial exam Mouth: Normal oral and palatal mucosa present Throat: Yes posterior oropharynx normal Neck Neck: Yes normal visual inspection Chest Chest palpation & inspection: normal inspection of the chest Resp Effort & Inspection: normal respiratory effort Auscultation: clear to auscultation bilaterally Cardio Jugular venous distension: no JVD Rate: regular rate Rhythm: regular rhythm GI Inspection: Yes normal to inspection Palpation (GI): Soft to palpation Skin General skin exam: no rashes or lesions noted Neuro Other: She is awake alert follow command at this time my stroke scale is 0 General: patient oriented x3 Course Reevaluation(s) Reevaluation #1: Clinical picture consistent with congestive heart failure she has cardiomegaly elevated BNP bilateral pleural effusion she was given IV diuresis she has 2 L oxygen requirement usually she is not on oxygen. I discussed the case with the hospitalist she will be admitted to [facility] Time: 15:13 Medications Administered Discontinued Medications Generic Name Dose Route Start Last Admin Trade Name Freq PRN Reason Stop Dose Admin Furosemide 40 mg 04/14/25 14:31 04/14/25 14:41 Furosemide 40 Mg/4 Ml Vial IVPUSH 04/14/25 14:32 40 mg ONCE ONE Administration Protocol Sodium Chloride 1,000 mls @ 999 mls/hr 04/14/25 09:45 04/14/25 11:34 Ns IVCONT 04/14/25 10:45 Infused .Q1H1M ZAIN Infusion Sodium Chloride 1,000 mls @ 999 mls/hr 04/14/25 09:45 04/14/25 11:34 Ns IVCONT 04/14/25 10:45 Infused .Q1H1M ZAIN Infusion Iohexol 100 ml 04/14/25 10:03 04/14/25 10:03 Iohexol 350 Mg/Ml 100 Ml Infus..Btl IV 04/14/25 10:04 70 ml ONCE ONE Administration Medical Decision Making Medical Decision Making [facility] Narrative: Patient sees here with a possible CVA we will obtain labs electrocardiogram CT head Differential Diagnosis Differential Diagnoses: The differential diagnosis associated with the presentation includes Stroke/UTIs/I hypoglycemia/electrolytes abnormality Admission/Observation Consideration of admission/observation: Escalation of care including admission/observation considered Consult Healthcare Provider Management of the patient was discussed with: Hospitalist Lab Data MDM Lab Attestation statement: I reviewed the patient's lab results. 04/14/25 09:52 04/14/25 09:52 Labs: Lab Results 04/14/25 04/14/25 04/14/25 Range/Units 09:31 09:52 11:35 WBC 7.3 (4.8-10.8) X10*3/uL RBC 3.91 L (4.20-5.50) X10*6/uL Hgb 11.0 L (12.0-16.0) g/dl Hct 34.2 L D (37.0-47.0) % MCV 87.5 (80.0-98.0) fL MCH 28.1 (27.0-33.0) pg MCHC 32.2 (31.0-35.0) g/dl RDW 14.6 (11.0-16.0) % Plt Count 222 (160-400) X10*3/uL MPV 10.5 (9.4-12.3) fL Immature Gran % (Auto) 0.5 H (0.0-0.4) % Neut % (Auto) 77.5 H (45-73) % Lymph % (Auto) 15.8 L (20-40) % [place] % (Auto) 5.5 (2-11) % Eos % (Auto) 0.3 (0-4) % Baso % (Auto) 0.4 (0-2) % Lymph # (Auto) 1.2 (1.2-4.9) X10*3/uL [place] # (Auto) 0.4 (0.1-1.2) X10*3/uL Eos # (Auto) 0.0 (0.0-0.4) X10*3/uL Baso # (Auto) 0.0 (0.0-0.2) X10*3/uL Abs Immat Gran (auto) 0.04 H (0.00-0.03) X10*3/uL Absolute Neuts (auto) 5.7 (2.0-8.3) x10*3/uL Absolute Nucleated RBC 0.000 (0.0-0.012) X10*3/uL Nucleated RBC % (auto) 0.0 (0.0-0.2) /100WBC O2 Saturation % ABG pH at Pt Temp (7.35-7.45) ABG pCO2 at Pt Temp (32-45) mmHg ABG pO2 at Pt Temp (83-108) mmHg ABG HCO3 (22-26) mmol/L ABG Base Excess (Actual) mmol/L Sodium 143 (135-145) mmol/L Potassium 4.3 D (3.3-5.1) mmol/L Chloride 112 H (96-108) mmol/L Carbon Dioxide 24 (22-29) mmol/L Anion Gap 11 L (12-20) BUN 27 H (9-16) mg/dL Creatinine 1.51 H (0.5-1.4) mg/dL Estim Creat Clear Calc 30.5 Estimated GFR 33 POC Glucose 89 (60-115) mg/dL Random Glucose 90 (60-115) mg/dL Calcium 8.9 D (8.4-10.2) mg/dL Total Bilirubin 0.4 (0.0-1.0) mg/dL AST 25 (5-31) U/L ALT 9 (0-31) U/L Alkaline Phosphatase 103 (39-117) U/L B-Natriuretic Peptide (<100) pg/mL Total Protein 6.7 (6.5-8.0) g/dL Albumin 3.6 (3.5-5.0) g/dL Urine Color Yellow Urine Appearance Clear Urine pH 6.0 (5.0-9.0) Ur Specific [place] 1.025 (1.005-1.025) Urine Protein >=1000 (4+) H (Neg-Trace) mg/dL Urine Glucose (UA) Negative (Negative) mg/dL Urine Ketones Negative (Negative) mg/dL Urine Blood Trace H (Negative) Urine Nitrite Negative (Negative) Ur Leukocyte Esterase Negative (Negative) Urine RBC 0-2 (0-2) /HPF Urine WBC 0-5 (0-5) /HPF Ur Squamous Epith Cells 0-2 (0-2) /HPF Urine Bacteria 1+ (None Seen) Hyaline Casts 0-2 (0-2) /LPF 04/14/25 04/14/25 04/14/25 Range/Units 11:50 13:21 13:35 WBC (4.8-10.8) X10*3/uL RBC (4.20-5.50) X10*6/uL Hgb (12.0-16.0) g/dl Hct (37.0-47.0) % MCV (80.0-98.0) fL MCH (27.0-33.0) pg MCHC (31.0-35.0) g/dl RDW (11.0-16.0) % Plt Count (160-400) X10*3/uL MPV (9.4-12.3) fL Immature Gran % (Auto) (0.0-0.4) % Neut % (Auto) (45-73) % Lymph % (Auto) (20-40) % [place] % (Auto) (2-11) % Eos % (Auto) (0-4) % Baso % (Auto) (0-2) % Lymph # (Auto) (1.2-4.9) X10*3/uL [place] # (Auto) (0.1-1.2) X10*3/uL Eos # (Auto) (0.0-0.4) X10*3/uL Baso # (Auto) (0.0-0.2) X10*3/uL Abs Immat Gran (auto) (0.00-0.03) X10*3/uL Absolute Neuts (auto) (2.0-8.3) x10*3/uL Absolute Nucleated RBC (0.0-0.012) X10*3/uL Nucleated RBC % (auto) (0.0-0.2) /100WBC O2 Saturation 97.0 % ABG pH at Pt Temp 7.34 L (7.35-7.45) ABG pCO2 at Pt Temp 39 (32-45) mmHg ABG pO2 at Pt Temp 83 (83-108) mmHg ABG HCO3 21 L (22-26) mmol/L ABG Base Excess (Actual) -3.6 mmol/L Sodium (135-145) mmol/L Potassium (3.3-5.1) mmol/L Chloride (96-108) mmol/L Carbon Dioxide (22-29) mmol/L Anion Gap (12-20) BUN (9-16) mg/dL Creatinine (0.5-1.4) mg/dL Estim Creat Clear Calc Estimated GFR POC Glucose 84 (60-115) mg/dL Random Glucose (60-115) mg/dL Calcium (8.4-10.2) mg/dL Total Bilirubin (0.0-1.0) mg/dL AST (5-31) U/L ALT (0-31) U/L Alkaline Phosphatase (39-117) U/L B-Natriuretic Peptide 1262 H (<100) pg/mL Total Protein (6.5-8.0) g/dL Albumin (3.5-5.0) g/dL Urine Color Urine Appearance Urine pH (5.0-9.0) Ur Specific [place] (1.005-1.025) Urine Protein (Neg-Trace) mg/dL Urine Glucose (UA) (Negative) mg/dL Urine Ketones (Negative) mg/dL Urine Blood (Negative) Urine Nitrite (Negative) Ur Leukocyte Esterase (Negative) Urine RBC (0-2) /HPF Urine WBC (0-5) /HPF Ur Squamous Epith Cells (0-2) /HPF Urine Bacteria (None Seen) Hyaline Casts (0-2) /LPF ABG Data Attestation ABG: I personally reviewed and interpreted this ABG as follows: Interpretation: Metabolic acidosis and hypoxia Independent Interpretation I performed an independent interpretation of an: Plain X-Ray Interpretation: Chest x-ray was reviewed interpreted by me as CHF Radiology Impression Discussion of test interpretation with radiology: I have reviewed the radiologist's reading. Radiologist Impression: Pelvic fluid: none. US/US pelvic complete IMPRESSION: 3.8 x 2.0 x 3.2 cm complex left ovarian cystic lesion for which follow-up is recommended in 6 weeks, at a different time in the patient's menstrual cycle, to document resolution. No evidence of ovarian torsion. Electronically signed by: Celestino Sawyer MD 04/14/2025 01:48 PM EDT Dictated By: Celestino Sawyer MD Signed By: <Electronically signed by Celestino Sawyer MD in OV> 04/14/25 [id number] Independent Historian Clinical information obtained from an independent historian. History obtained from or confirmed by: Other son External Record Review External record reviewed: Inpatient record Reviewed inpatient record including last hospitalization and discharge summary Chronic Conditions Patient?s care impacted by: Hypertension Critical Care Time Critical Care Time Critical Care Time: Yes Total Critical Care Time: 90 Attestation: taking care of the pt/speaking with son /hospitalist Discharge Plan Discharge Clinical Impression: Hypoxia Altered mental status Qualifiers: Altered mental status type: unspecified Qualified Code(s): R41.82 - Altered mental status, unspecified CHF (congestive heart failure) Qualifiers: Heart failure type: unspecified Heart failure chronicity: acute Qualified Code(s): I50.9 - Heart failure, unspecified Patient Disposition: Admitted As Inpatient
[2025-04-14 09:38] LABS: Glucose, Whole Blood 89 mg/dL (60-115)
[2025-04-14 09:57] LABS: MANUAL DIFF FLAG NO
[2025-04-14 09:59] LABS: Hematocrit 34.2 % (37.0-47.0); Hemoglobin 11.0 g/dl (12.0-16.0); Imm Gran Abs Auto 0.04 X10*3/uL (0.00-0.03); Imm Gran Pct Auto 0.5 % (0.0-0.4); Lymphocytes Absolute Auto 1.2 X10*3/uL (1.2-4.9); Mean Corpuscular HGB Conc 32.2 g/dl (31.0-35.0); Mean Corpuscular Hemoglobin 28.1 pg (27.0-33.0); Mean Corpuscular Volume 87.5 fL (80.0-98.0); NRBC Abs Auto 0.000 X10*3/uL (0.0-0.012); NRBC Pct Auto 0.0 /100WBC (0.0-0.2); Platelet Count 222 X10*3/uL (160-400); Red Blood Count 3.91 X10*6/uL (4.20-5.50); White Blood Count 7.3 X10*3/uL (4.8-10.8)
[2025-04-14] MEDS: iohexoL 350 MG/ML 100 ML INFUS..BTL IV (10:03)
[2025-04-14 10:13] LABS: Alanine Aminotransferase 9 U/L (0-31); Albumin Level 3.6 g/dL (3.5-5.0); Alkaline Phosphatase 103 U/L (39-117); Anion Gap 11 (12-20); Aspartate Amino Transferase 25 U/L (5-31); Blood Urea Nitrogen 27 mg/dL (9-16); Calcium 8.9 mg/dL (8.4-10.2); Carbon Dioxide 24 mmol/L (22-29); Chloride 112 mmol/L (96-108); Creatinine Clr Calc Pharmacy 30.5; Estimated Glomerular Filt Rate 33; Potassium 4.3 mmol/L (3.3-5.1); Sodium 143 mmol/L (135-145); Total Protein 6.7 g/dL (6.5-8.0)
--- NOTE | 2025-04-14 10:18 | MHC.STROKE ---
Notified of Stroke Alert in ED Pt in CT scan upon my arrival. Pt awake, alert, oriented to name. Pt offering no complaints. When asked why she is here, pt states I'm not sure Denies pain, denies headache. No focal deficits noted. Pt forgetful and moving throughout CT scans. Required multiple redirections to get CT scan completed. Pt IV line from EMS need to be restarted for CTA. #20 placed in left AC by charge nurse. Son at the bedside. Stroke Education provided to patient and son. Son reports that patient was here a few weeks ago with similar symptoms and had a UTI. Pt also required intubation during her last visit. Medical history/meds reviewed. Pt/son aware and agreeable to care plan thus far. Will continue to assist as needed.
--- NOTE | 2025-04-14 10:29 | PC.NURSE ---
PLACIDO from [facility]. Staff reports patient having garbled speech patterns and slightly altered from baseline. No deficits noted on arrival. Unknown LKWT Patient denies pain and SOB. EMS reports O2 89% RA 4L NC applied reassessed 95%. IV 20G in left hand inserted by EMS IV 20G in Left AC placed. CT xray performed awaiting results Blood collected sent Patient alert to self only Patient incontinent purewick applied Patient has moments of speaking clearly then speech does become garbled Patient past nursing swallow screen Currently running 2L NS Son at bedside Plan of care on going
--- NOTE | 2025-04-14 10:39 | ECG_ITS ---
Test Reason : STOKE Blood Pressure : */* mmHG Vent. Rate : 60 BPM Atrial Rate : 60 BPM P-R Int : 288 ms QRS Dur : 108 ms QT Int : 444 ms P-R-T Axes : 48 9 1 degrees QTcB Int : 444 ms Sinus rhythm with 1st degree A-V block Septal infarct (cited on or before 09-Mar-2025) Abnormal ECG When compared with ECG of 09-Mar-2025 17:07, Premature ventricular complexes are no longer Present Referred By: Srikanth Palma Electronically Signed By: Chan Melgar
--- OUTSIDE RECORDS SUMMARY | 2025-04-14 11:23 | XMS_ITS | Clinical Summary ---
Author Organization [facility] Address [address] [place] [address] Phone Care Team Providers Care Frame Runner Name Role Phone Unavailable Primary Care Provider Unavailabl e Allergies Active Allergy Reactions Criticality Noted Date Comments Paroxetine Other (see comments) 01/20/2021 Medications Calcium Carbonate-Vitam in D (CALCIUM 500 + D PO) Take 1 tablet by mouth 1 (one) time each day Active Multiple Vitamin (MULTIVITAMIN ADULT PO) Take 1 capsule by mouth 1 (one) time each day Active aspirin 325 MG EC tablet Take 1 tablet by mouth 1 (one) time each day Active citalopram (CeleXA) 40 MG tablet Take 1 tablet by mouth 1 (one) time each day Active Calcium 500-125 MG-UNIT tablet Take 1 tablet by mouth 1 (one) time each day Active levothyroxine (SYNTHROID, LEVOTHROID) 137 MCG tablet Take 1 tablet by mouth 1 (one) time each day Active omega-3 (FISH OIL) 1000 MG capsule Take 1 capsule by mouth 1 (one) time each day Active simvastatin (ZOCOR) 10 MG tablet Take 1 tablet by mouth 1 (one) time each day Active spironolactone- hydroCHLOROthia zide (ALDACTAZIDE) 25-25 MG per tablet Take 0.5 tablets by mouth 1 (one) time each day 45 tablet 3 05/05/2022 Active irbesartan (AVAPRO) 300 MG tablet TAKE 1 TABLET BY MOUTH EVERY NIGHT 90 tablet 3 08/07/2022 Active amLODIPine (NORVASC) 5 MG tablet TAKE 1 TABLET(5 MG) BY MOUTH EVERY DAY 90 tablet 3 08/07/2022 Active Active Problems Problem Noted Date Diagnosed Date Hypertensive chronic kidney disease, unspecified, with chronic kidney disease stage I through stage IV, or unspecified 01/20/2021 Chronic kidney disease stage 2 01/20/2021 Atherosclerosis of renal artery 01/20/2021 Immunizations Immunization Administration Dates Next Due Influenza TIV (IM) 08/14/2014 Pneumococcal Polysaccharide 08/14/2014 Family History Medical History Relation Comments Heart disease Father Dementia Mother Relation Status Comments Father Mother Social History Tobacco Use Types Packs/Day Years Used Date Smoking Tobacco: Never Smokeless Tobacco: Never Alcohol Use Standard Drinks/Week Comments No 0 (1 standard drink = 0.6 oz pur e alcohol) Comments Unknown Sex and Gender Information Value Date Recorded Sex Assigned at Not on file Legal Sex Female 5:02 PM EST Gender Identity Not on file Sexual Orientation Not on file Last Filed Vital Signs Vital Sign Reading Time Taken Comments Blood Pressure 130/70 12/26/2018 12:01 PM EDT Pulse 76 12/26/2018 12:01 PM EDT Temperature - - Respiratory Rate - - Oxygen Saturation - - Inhaled Oxygen Concentration - - Weight 108 kg (237 lb) 12/26/2018 12:01 PM EDT Height 157.5 cm (5' 2 ) 12/26/2018 12:01 PM EDT Body Mass Index 43.35 12/26/2018 12:01 PM EDT Plan of Treatment Health Maintenance Due Date Last Done Comments Pneumococcal Vaccine: 50+ Ye ars (2 of 2 - PCV) 08/14/2015 08/14/2014 Influenza Vaccine (#1) 2025 08/14/2014 Pneumococcal Vaccine: Peds ( 0 to 5 Years) and At-Risk Patients (6 to 49 Years) Discontinued 08/14/2014 Hepatitis B Vaccine Aged Out No longe r eligible based on patient's age to complete this topic Insurance Medicare Medicaid [place]
--- OUTSIDE RECORDS SUMMARY | 2025-04-14 11:23 | XMS_ITS | Clinical Summary ---
Author Organization [address] [facility] Address [address] [place] [address] Phone Care Team Providers Care Nuclear Fuel Enrichment Technician Name Role Phone Elder, Kavita Lord MD Primary Care Provider + Social History Tobacco Use Types Packs/Day Years Used Date Smoking Tobacco: Never Assessed Comments Unknown Sex and Gender Information Value Date Recorded Sex Assigned at Not on file Legal Sex Female 3:18 PM EST Gender Identity Not on file Sexual Orientation Not on file Plan of Treatment Health Maintenance Due Date Last Done Comments DTaP,Tdap,and Td Vaccines (1 - Tdap) 01/30/1963 Zoster Vaccines (1 of 2) 01/30/1994 Pneumococcal Vaccine: 50+ Ye ars (2 of 2 - PCV) 08/14/2015 08/14/2014 RSV Immunization Adult Patie nts (1 - 1-dose 75+ series) 01/30/2019 COVID-19 Vaccine (1 - 2023-2 5 season) 2024 Depression Screening 09/03/2024 Cholesterol Screening (Lipid Panel) 09/26/2024 Falls Risk Assessment 09/26/2024 Medicare Annual Wellness Visit 09/26/2024 Osteoporosis Screening (Bone Density Screening) 09/26/2024 Social Influencers of Health Screening 09/26/2024 Influenza Vaccine (#1) 2025 08/14/2014 HIB Vaccines Aged Out No longer eligi ble based on patient's age to complete this topic HPV Vaccines Aged Out No longer eligi ble based on patient's age to complete this topic Hepatitis A Vaccines Aged Out No long er eligible based on patient's age to complete this topic Hepatitis B Vaccines Aged Out No long er eligible based on patient's age to complete this topic IPV Vaccines Aged Out No longer eligi ble based on patient's age to complete this topic MMR Vaccines Aged Out No longer eligi ble based on patient's age to complete this topic Meningococcal ACWY Vaccine Aged Out N o longer eligible based on patient's age to complete this topic Meningococcal B Vaccine Aged Out No l onger eligible based on patient's age to complete this topic RSV Immunization Patients Un felicia 20 months Aged Out No longer eligible b ased on patient's age to complete this topic Varicella Vaccines Aged Out No longer eligible based on patient's age to complete this topic Insurance MEDICARE MEDICAID - [place] Care Teams Nuclear Fuel Enrichment Technician Relationship Specialty Start Date End Date Kavita Chao MD [address] [place] [address] PCP - General Family Medicine 09/25/24
[2025-04-14 11:43] LABS: Appearance Urine Clear; Glucose Urine UA Negative (Negative); PH 6.0 (5.0-9.0); Specific Gravity - Urine 1.025 (1.005-1.025); UMIC TRIGGER UACC YES
[2025-04-14 11:53] LABS: Glucose, Whole Blood 84 mg/dL (60-115)
[2025-04-14 13:24] LABS: ABG HCO3 21 mmol/L (22-26); ABG O2 % Saturation 97.0 %
[2025-04-14 14:12] LABS: B Type Natriuretic Peptide 1262 pg/mL (<100)
[2025-04-14] MEDS: Furosemide 40 MG/4 ML VIAL IVPUSH (14:41)
--- NOTE | 2025-04-14 15:02 | PM.IMHP ---
History of Present Illness Date of Service: 04/14/25 Chief Complaint: Altered mentail status 80/F with past medical history of vascular dementia, , age-related physical debility, HTN, hypothyroidism, HLD, GERD brought SNF to be evaluated for Altered mental status and garbled speech. No focal neuro deficit noted here however noted to by hypoxic with O2 saturation of 89% on RA, improved to 95 with 2 liters. CTA of head and neck, CT head.. No acute finding. CXR show mild pulmonary edema. BNP level is 1262. There is no UTI ED treatment. IV fluid x2 L followed by Lasix 40 mg. Review of Systems Review of Systems: Gen: no fever Resp: no sob, no cough CV: no chest, no OLIVA, no leg edema GI: No n/v, no abd pain Neuro: No confusion [facility] Medical History Diabetes mellitus Depression Hypertension Hypothyroid Stroke Social History Household Members: None Housing: Assisted Living Facility Do you presently have visiting nurse or other home services: No Unable to assess alcohol history related to: Unable to respond Comment: sitter Patient Tobacco Use Status: Never used Tobacco Smoked in Last 30 Days: No Use of substances other than those prescribed or required for medical reasons: No Currently Displaying Signs/Symptoms of Drug Intoxication Withdrawal: No Advance Directives: Yes Advance Directives on File: Yes Advance Directives Date on File: 03/09/25 Do you have a plan to hurt others: No Plan Recently lost weight without trying: Unsure Eating poorly because of decreased appetite: No Nutrition Risks: No Nutritional Risk Patient : No service: No Meds Allergies Allergy/AdvReac Type Severity Reaction Status Date / Time No Known Allergies Allergy Verified 04/14/25 10:09 Home Medications ?Medication ?Instructions ?Recorded ?Confirmed ?Last Taken ?Type acetaminophen 325 mg tablet 650 mg PO Q6H PRN Fever Or Pain 03/09/25 04/14/25 Unknown History aluminum-mag hydroxide-simethicone 15 ml PO Q6H PRN Indigestion 03/09/25 04/14/25 Unknown History 400 mg-400 mg-40 mg/5 mL oral susp (Mylanta Maximum Strength) amlodipine 10 mg tablet 10 mg PO DAILY 03/09/25 04/14/25 Unknown History bisacodyl 10 mg rectal suppository 10 mg NH DAILY PRN Constipation 03/09/25 04/14/25 Unknown History cholecalciferol (vitamin D3) 25 25 mcg PO DAILY 03/09/25 04/14/25 Unknown History mcg (1,000 unit) tablet (Vitamin D3) cyanocobalamin (vitamin B-12) 1,000 mcg PO DAILY 03/09/25 04/14/25 Unknown History 1,000 mcg tablet (Vitamin B-12) irbesartan 300 mg tablet 300 mg PO DAILY 03/09/25 04/14/25 Unknown History levothyroxine 112 mcg tablet 112 mcg PO DAILY@0600 03/09/25 04/14/25 Unknown History magnesium hydroxide 400 mg/5 mL 30 ml PO DAILY PRN Constipation 03/09/25 04/14/25 Unknown History oral suspension (Milk of Magnesia) melatonin 3 mg tablet 3 mg PO BEDTIME 03/09/25 04/14/25 Unknown History menthol 5 % topical patch (Icy Hot 1 patch topical DAILY 03/09/25 04/14/25 Unknown History (menthol)) polyethylene glycol 3350 17 17 g PO DAILY PRN Constipation 03/09/25 04/14/25 Unknown History gram/dose oral powder (Miralax) sertraline 25 mg tablet 12.5 mg PO DAILY 03/09/25 04/14/25 Unknown History sertraline 50 mg tablet 25 mg PO DAILY 03/09/25 04/14/25 Unknown History simvastatin 10 mg tablet 10 mg PO BEDTIME 03/09/25 04/14/25 Unknown History sodium phosphates 19 gram-7 118 ml NH DAILY PRN Constipation 03/09/25 04/14/25 Unknown History gram/118 mL enema (Fleet Enema) trazodone 50 mg tablet 25 mg PO BEDTIME 03/09/25 04/14/25 Unknown History carvedilol 3.125 mg tablet (Coreg) 3.125 mg PO BID 04/14/25 04/14/25 Unknown History nystatin 100,000 unit/gram topical 1 appl topical BID 04/14/25 04/14/25 Unknown History powder (Nyamyc) Physical Exam Vital Signs and Narrative: Vital Signs: Last Vital Signs Temp 98.4 F 04/14/25 12:24 Pulse 65 04/14/25 12:24 Resp 18 04/14/25 12:24 BP 162/63 H 04/14/25 14:41 Pulse Ox 94 04/14/25 12:24 O2 Del Method Room Air 04/14/25 12:24 Oxygen Flow Rate 2 04/14/25 10:07 BMI result Body Mass Index 34.0 Const: Other: General: AO X 3, no acute distress Resp: CTA bilateral CVS: S1,S2,RRR GI: +BS, NT, no distention Skin: No rash Neuro: motor grossly intact Psych: appropriate affect Results Labs 04/16/25 05:44 04/16/25 05:44 Labs: Laboratory Results - last 24 hr 04/14/25 04/14/25 04/14/25 09:31 09:52 11:35 MCV 87.5 MCH 28.1 MCHC 32.2 RDW 14.6 Plt Count 222 MPV 10.5 Immature Gran % (Auto) 0.5 H Neut % (Auto) 77.5 H Lymph % (Auto) 15.8 L Nicholas % (Auto) 5.5 Eos % (Auto) 0.3 Baso % (Auto) 0.4 Lymph # (Auto) 1.2 Nicholas # (Auto) 0.4 Eos # (Auto) 0.0 Baso # (Auto) 0.0 Abs Immat Gran (auto) 0.04 H Absolute Neuts (auto) 5.7 Absolute Nucleated RBC 0.000 Nucleated RBC % (auto) 0.0 O2 Saturation ABG pH at Pt Temp ABG pCO2 at Pt Temp ABG pO2 at Pt Temp ABG HCO3 ABG Base Excess (Actual) Anion Gap 11 L Estim Creat Clear Calc 30.5 Estimated GFR 33 POC Glucose 89 Random Glucose 90 Calcium 8.9 D Total Bilirubin 0.4 AST 25 ALT 9 Alkaline Phosphatase 103 B-Natriuretic Peptide Total Protein 6.7 Albumin 3.6 Urine Color Yellow Urine Appearance Clear Urine pH 6.0 Ur Specific [place] 1.025 Urine Protein >=1000 (4+) H Urine Glucose (UA) Negative Urine Ketones Negative Urine Blood Trace H Urine Nitrite Negative Ur Leukocyte Esterase Negative Urine RBC 0-2 Urine WBC 0-5 Ur Squamous Epith Cells 0-2 Urine Bacteria 1+ Hyaline Casts 0-2 04/14/25 04/14/25 04/14/25 11:50 13:21 13:35 MCV MCH MCHC RDW Plt Count MPV Immature Gran % (Auto) Neut % (Auto) Lymph % (Auto) Nicholas % (Auto) Eos % (Auto) Baso % (Auto) Lymph # (Auto) Nicholas # (Auto) Eos # (Auto) Baso # (Auto) Abs Immat Gran (auto) Absolute Neuts (auto) Absolute Nucleated RBC Nucleated RBC % (auto) O2 Saturation 97.0 ABG pH at Pt Temp 7.34 L ABG pCO2 at Pt Temp 39 ABG pO2 at Pt Temp 83 ABG HCO3 21 L ABG Base Excess (Actual) -3.6 Anion Gap Estim Creat Clear Calc Estimated GFR POC Glucose 84 Random Glucose Calcium Total Bilirubin AST ALT Alkaline Phosphatase B-Natriuretic Peptide 1262 H Total Protein Albumin Urine Color Urine Appearance Urine pH Ur Specific [place] Urine Protein Urine Glucose (UA) Urine Ketones Urine Blood Urine Nitrite Ur Leukocyte Esterase Urine RBC Urine WBC Ur Squamous Epith Cells Urine Bacteria Hyaline Casts Imaging Radiologist's Impressions: Impressions Head CT 04/14/25 08:39 IMPRESSION: No acute intracranial process seen. There is chronic right ROBINA territory infarct. Old right external capsules/mesial temporal lobe lacunar infarct is seen. Hypodensity in the right central miah is likely artifact. No major change since the previous exam 03/09/2025. This critical result was discussed by phone with Dr. FLORENTINO HOOK in the ER at 9:56 a.m. on 04/14/2025. It was ascertained that the content and urgency of the report was understood at the time of direct communication. Electronically signed by: Charles Smith MD 04/14/2025 10:02 AM EDT Chest X-Ray 04/14/25 09:06 IMPRESSION: Mild pulmonary edema. Status post extubation and NG tube removal . Electronically signed by: Shine Melendez MD 04/14/2025 10:23 AM EDT Head/Neck CTA 04/14/25 09:49 IMPRESSION: 80-90% stenosis secondary to calcified plaque, right ICA. Atherosclerosis disease, petrous cavernous and supracavernous segments both ICAs. Probable old occlusion, P2 segment right HEAD HOST/HOSTESS. Encephalomalacia, right cuneus/precuneus lingual gyrus secondary to old infarct, right HEAD HOST/HOSTESS territory No acute main cerebral artery occlusion or embolus. . This critical test result is communicated to: Emergency physician Dr. Srikanth Palma at 10:19 AM on April 14, 2025, using [employer] . Electronically signed by: Shine Melendez MD 04/14/2025 10:20 AM EDT RP Chest CT 04/14/25 12:51 IMPRESSION: Cardiomegaly. Small to moderate bilateral pleural effusions and small pericardial effusion. Subsegmental atelectasis in both lower lobes. Electronically signed by: Celestino Sawyer MD 04/14/2025 02:14 PM EDT RP Assessment and Plan (1) CHF (congestive heart failure): Qualifiers: Heart failure chronicity: acute Heart failure type: unspecified Qualified Code(s): I50.9 - Heart failure, unspecified Status: Acute (2) Acute encephalopathy: Status: Acute Plan 80-year-old lady with past medical history of vascular dementia, dementia, age-related physical debility, HTN, hypothyroidism, HLD, GERD here with altered mental d/t hypoxia and found to have acute CHF Acute encephalopathy likely related to hypoxia, her mental status is already better. Address underlying issue. Acute heart failure with preserved ejection fraction, last EF 55-60% last month. IV Lasix, continue Coreg. Monitor I&O, electrolytes and trend BNP Hypertension Coreg, Norvasc, Irbesartan Chronic kidney disease stage IIIB, at baseline. diabetes mellitus: SSI, diabetic diet Hypothyroidism: L levothyroxine Mood disorder Sertraline, trazadone Musculoskeletal: Decubitus ulcer prevention protocol DVT prophylaxis: Lovenox Code status: Full code Quality Stroke Does the patient have a stroke diagnosis?: No VTE Prior VTE?: No VTE Risk Level:: Medical - moderate - high VTE Device Contraindication: Treatment Not Tolerated VTE Drug Contraindication: N/A - Med Ordered
--- NOTE | 2025-04-14 15:11 | PHA.MEDREC ---
Addendum entered by Jem Acharya [facility] 04/14/25 15:18: Med rec reviewed Original Note: Pharmacy Consult ? Medication Reconciliation Pharmacy has completed the medication reconciliation. Utilized list from [facility] to confirm med list.
[2025-04-14] MEDS: 0.9 % Sodium Chloride Flush 3 ML SYRINGE IVFLUSH (16:56)
--- NOTE | 2025-04-14 19:01 | PC.NURSE ---
Addendum entered by Linda Beaulieu RN 04/14/25 19:01: Received patient from the main ED. Noted to be incontinent of a large amount of urine. Incontinence care and a bed change performed. Original Note: Medical History Diabetes mellitus Depression Hypertension Hypothyroid Stroke
[2025-04-14 19:03] LABS: ABG Refer to POC result
--- NOTE | 2025-04-14 19:35 | PC.NURSE ---
TW noted orders for continuous cardiac monitoring. PT in overflow and not on tele. Notified charge, RN and warehouser. Clarified with hospitalist, Dr. Riley, that pt is ordered for tele however they can be on medsurg on the monitor. Report givven. PT will not be transferred on court monitor.
[2025-04-14] MEDS: traZODone HCL 25 MG HALFTAB PO (20:48)
--- NOTE | 2025-04-14 23:50 | HO.SKINPHOTO ---
Location: buttocks/groin Category: Stage: Length: Width: Depth: cm
--- NOTE | 2025-04-15 | ECG_ITS ---
Test Reason : Bradycardia Blood Pressure : */* mmHG Vent. Rate : 58 BPM Atrial Rate : * BPM P-R Int : * ms QRS Dur : 106 ms QT Int : 450 ms P-R-T Axes : * 15 16 degrees QTcB Int : 441 ms Probably sinus rhythm Poor data quality Septal infarct (cited on or before 09-Mar-2025) ST & T wave abnormality, consider inferior ischemia Abnormal ECG When compared with ECG of 14-Apr-2025 10:39, No significant changes seen Referred By: Srikanth Palma Electronically Signed By: Chan Melgar
[2025-04-15] MEDS: 0.9 % Sodium Chloride Flush 3 ML SYRINGE IVFLUSH ×3 (00:15→16:34)
[2025-04-15 01:33] VITALS: BP 151/67; PULSE 60; RESP 16; TEMP 36.5; O2SAT 96
--- NOTE | 2025-04-15 01:33 | PC.NURSE ---
Patient's HR on tele kept dropping into the 30s multiple times. Dr. Riley notified & ordered stat EKG. Other VS WNL. EKG results sent to [facility]. No new interventions per MD. heart rate currently running in the 50's.
[2025-04-15 03:55] VITALS: BP 168/74; PULSE 74; RESP 18; TEMP 36.8; O2SAT 94
[2025-04-15 06:42] LABS: Anion Gap 14 (12-20); Blood Urea Nitrogen 24 mg/dL (9-16); Calcium 8.5 mg/dL (8.4-10.2); Carbon Dioxide 20 mmol/L (22-29); Chloride 114 mmol/L (96-108); Creatinine Clr Calc Pharmacy 32.5; Estimated Glomerular Filt Rate 36; Potassium 3.9 mmol/L (3.3-5.1); Sodium 144 mmol/L (135-145)
[2025-04-15 06:49] LABS: B Type Natriuretic Peptide 1048 pg/mL (<100)
[2025-04-15 07:20] VITALS: BP 144/80; PULSE 60; RESP 16; TEMP 36; O2SAT 92
--- NOTE | 2025-04-15 09:26 | MHC.CM.PN ---
PT FROM [facility] WHERE SHE IS A BED HOLD LEFT T/ FOR PTS SON HCP IMELDA PT LYNDA ROBERSON
[2025-04-15 15:44] VITALS: BP 154/74; PULSE 59; RESP 14; TEMP 36.4; O2SAT 92
--- NOTE | 2025-04-15 16:35 | HO.WOUND ---
Wound Consult: Initial 80yr old?female admitted to [facility] [place] on 04[place]14/25 - See progress notes and H&P for detailed history.? Wound consult placed for buttock.? Chart review completed and photo reviewed. Buttock Etiology: ?MASD (Moisture Associated Skin Damage) ? Wound Bed: red pink moist tissue with irregular edges and scattered open areas red clean pink tissue Ashley wound: ?No observed PI noted in Photo or reported by direct care team No Induration, Fluctuance or Warmth noted Goals of Treatment: ? Off load pressure and barrier cream to protect from moisture and friction Skin folds not assessed - nystatin in use per direct care team. Recommendations: 1. Turn and Reposition every 2 hours and as needed for patient comfort.? Use pillows or wedges to support off loading positions. 2. Off Load all bony prominences with use of pillows and heel boots if needed.? Apply Preventative foams where needed. ? 3. Monitor for incontinence and moisture control, use barrier creams when needed for prevention and treatment. 4. Provide adequate and supplemental nutrition.? 5. Order low air loss mattress. 6. When applicable maintain blood glucose levels per Providers order. Buttock - Off Load Pressure with Q2 hr turns and use of pillows - Cleanse with PH balance spray or wipes, pat dry. ?Apply thin layer of barrier cream to affected area.? Apply twice daily and Reapply thin layer PRN after each episode of incontinence. Skin Folds - Cleanse with PH balance wipes, pat dry with soft cloth.? Apply antifungal power to assist with moisture management.? Be sure to dust of excess powder to prevent caking on skin and in folds. Apply per provider orders. Tuck Interdry AG Sheet into skin fold to wick and translocate moisture away from skin fold.? Be sure to leave at least 2 inch of fabric exposed outside of skin fold.? Change after 5 days or when soiled. Re-consult wound care Nurse for wound deterioration or wound changes.
[2025-04-15 20:00] VITALS: BP 170/82; PULSE 65; RESP 14; TEMP 37; O2SAT 93
[2025-04-15] MEDS: traZODone HCL 25 MG HALFTAB PO (20:58)
[2025-04-16 04:00] VITALS: BP 140/78; PULSE 58; RESP 18; TEMP 36.8; O2SAT 91
[2025-04-16 06:41] LABS: Anion Gap 13 (12-20); Blood Urea Nitrogen 27 mg/dL (9-16); Calcium 8.8 mg/dL (8.4-10.2); Carbon Dioxide 21 mmol/L (22-29); Chloride 114 mmol/L (96-108); Creatinine Clr Calc Pharmacy 29.6; Estimated Glomerular Filt Rate 32; Potassium 4.0 mmol/L (3.3-5.1); Sodium 144 mmol/L (135-145)
[2025-04-16 06:47] LABS: Hematocrit 30.9 % (37.0-47.0); Hemoglobin 9.6 g/dl (12.0-16.0); Mean Corpuscular HGB Conc 31.1 g/dl (31.0-35.0); Mean Corpuscular Hemoglobin 27.5 pg (27.0-33.0); Mean Corpuscular Volume 88.5 fL (80.0-98.0); NRBC Abs Auto 0.000 X10*3/uL (0.0-0.012); NRBC Pct Auto 0.0 /100WBC (0.0-0.2); Platelet Count 204 X10*3/uL (160-400); Red Blood Count 3.49 X10*6/uL (4.20-5.50); White Blood Count 6.5 X10*3/uL (4.8-10.8)
[2025-04-16 07:57] VITALS: BP 140/68; PULSE 60; RESP 16; TEMP 36.1; O2SAT 92
--- NOTE | 2025-04-16 09:14 | P.PNIM_ITS ---
Subjective Subjective Date of Service: 04/17/25 Interval History: f/u on heart failure, confusion mental status is better, no sob Physical Exam 2 Vital Signs: Vital Signs: Last Vital Signs Temp 96.9 F 04/16/25 07:57 Pulse 60 04/16/25 07:57 Resp 16 04/16/25 07:57 BP 140/68 H 04/16/25 07:57 Pulse Ox 92 04/16/25 07:57 O2 Del Method Room Air 04/16/25 07:57 O2 Flow Rate 2 04/15/25 07:20 Oxygen Flow Rate 2 04/14/25 10:07 BMI result Body Mass Index 34.0 Appearance: Alert.? Oriented x1 cvs: rrr, [id number] . res: clear to auscultation ,no rhonchii or wheezing abd: no rebound or guarding ,nt, bs present. ext pulses present , no cyanosis . neuro: nonfocal. Const: Other: General: AO X 3, no acute distress Resp: CTA bilateral CVS: S1,S2,RRR GI: +BS, NT, no distention Skin: No rash Neuro: motor grossly intact Psych: appropriate affect Objective Data Active Medications Acetaminophen (Acetaminophen 325 Mg Tablet) 650 mg PO Q6H PRN PRN Reason: Pain, Mild 1-3,fever,headache Al Hydroxide/Mg Hydroxide (Magnesium Hydrox/Alum Hydrox 30 Ml Oral.Susp) 15 ml PO Q6H PRN PRN Reason: Indigestion Amlodipine Besylate (Amlodipine Besylate 10 Mg Tablet) 10 mg PO DAILY [facility]; Protocol Last Admin: 04/15/25 09:29 Dose: 10 mg Documented By: MARISSA Atorvastatin Calcium (Atorvastatin Calcium 10 Mg Tablet) 10 mg PO BEDTIME [facility] Last Admin: 04/15/25 20:58 Dose: 10 mg Documented By: CATARINO Bisacodyl (Bisacodyl 10 Mg Supp.Rect) 10 mg LA DAILY PRN PRN Reason: Constipation Calcium Carbonate (Calcium Carbonate 750 Mg Tab.Chew) 750 mg PO Q4H PRN PRN Reason: Heartburn Carvedilol (Carvedilol 3.125 Mg Tablet) 3.125 mg PO BID [facility]; Protocol Last Admin: 04/15/25 20:58 Dose: 3.125 mg Documented By: CATARINO Cyanocobalamin (Cyanocobalamin (Vitamin B-12) 1,000 Mcg Tablet) 1,000 mcg PO DAILY [facility] Last Admin: 04/15/25 09:28 Dose: 1,000 mcg Documented By: MARISSA Enoxaparin Sodium (Enoxaparin Sodium 30 Mg/0.3 Ml Syringe) 30 mg SUBCUT Q24H [facility] Last Admin: 04/15/25 16:33 Dose: 30 mg Documented By: MARISSA Levothyroxine Sodium (Levothyroxine Sodium 112 Mcg Tablet) 112 mcg PO DAILY@0600 [facility] Last Admin: 04/16/25 06:11 Dose: 112 mcg Documented By: CATARINO Magnesium Hydroxide (Milk Of Magnesia 30 Ml Oral.Susp) 30 ml PO DAILY PRN PRN Reason: Constipation Magnesium Hydroxide (Milk Of Magnesia 30 Ml Oral.Susp) 30 ml PO DAILY PRN PRN Reason: Constipation Melatonin (Melatonin 3 Mg Tablet) 6 mg PO BEDTIME PRN PRN Reason: Insomnia Last Admin: 04/15/25 00:14 Dose: 6 mg Documented By: CATARINO Melatonin (Melatonin 3 Mg Tablet) 3 mg PO BEDTIME [facility] Last Admin: 04/15/25 20:59 Dose: 3 mg Documented By: CATARINO Nystatin (Nystatin Powder 15 Gm Bottle) 1 appl TOPICAL BID [facility]; Protocol Last Admin: 04/15/25 21:00 Dose: 1 appl Documented By: CATARINO Ondansetron HCl (Ondansetron Hcl 4 Mg/2 Ml Vial) 4 mg IVPUSH Q8H PRN PRN Reason: Nausea and Vomiting Polyethylene Glycol (Polyethylene Glycol 3350 17 Gm Powd.Pack) 17 gm PO DAILY PRN PRN Reason: Constipation Polyethylene Glycol (Polyethylene Glycol 3350 17 Gm Powd.Pack) 17 gm PO DAILY PRN PRN Reason: Constipation Sertraline HCl (Sertraline Hcl 25 Mg Tablet) 12.5 mg PO DAILY [facility] Last Admin: 04/15/25 09:28 Dose: 12.5 mg Documented By: MAIRSSA Sertraline HCl (Sertraline Hcl 25 Mg Tablet) 25 mg PO DAILY [facility] Last Admin: 04/15/25 09:28 Dose: 25 mg Documented By: MARISSA Sodium Biphosphate/Sodium Phosphate (Sodium Phosphate,[place]-Dibasic 133 Ml Enema) 118 ml LA DAILY PRN PRN Reason: Constipation Sodium Chloride (0.9 % Sodium Chloride Flush 3 Ml Syringe) 3 ml IVFLUSH QSHIFT [facility] Last Admin: 04/16/25 00:56 Dose: Not Given Documented By: CATARINO Non-Admin Reason: Previously Administered Trazodone HCl (Trazodone Hcl 25 Mg Halftab) 25 mg PO BEDTIME [facility] Last Admin: 04/15/25 20:58 Dose: 25 mg Documented By: CATARINO Valsartan (Valsartan 160 Mg Tablet) 160 mg PO DAILY [facility] Last Admin: 04/15/25 09:28 Dose: 160 mg Documented By: MARISSA Vitamin D (Cholecalciferol (Vitamin D3) 25 Mcg Tablet) 25 mcg PO DAILY [facility] Last Admin: 04/15/25 09:28 Dose: 25 mcg Documented By: MARISSA Labs 04/16/25 05:44 04/17/25 06:00 Labs: Laboratory Results - last 24 hr 04/16/25 05:44 MCV 88.5 MCH 27.5 MCHC 31.1 RDW 14.6 Plt Count 204 MPV 11.1 Absolute Nucleated RBC 0.000 Nucleated RBC % (auto) 0.0 Anion Gap 13 Estim Creat Clear Calc 29.6 Estimated GFR 32 Random Glucose 81 Calcium 8.8 Assessment and Plan (1) Acute kidney injury: Status: Acute (2) Acute UTI: Status: Acute Plan 80-year-old lady with past medical history of vascular dementia, dementia, age- related physical debility, HTN, hypothyroidism, HLD, GERD here with altered mental d/t hypoxia and found to have acute CHF Acute encephalopathy likely related to hypoxia, her mental status is already better. Address underlying issue. Acute heart failure with preserved ejection fraction, last EF 55-60% last month. IV Lasix, continue Coreg. Monitor I&O, electrolytes and trend BNP cardiology consult, repeat echo Hypertension Coreg, Norvasc, Irbesartan Chronic kidney disease stage IIIB, at baseline. diabetes mellitus: SSI, diabetic diet Hypothyroidism: L levothyroxine Mood disorder Sertraline, trazadone Musculoskeletal: Decubitus ulcer prevention protocol DVT prophylaxis: Lovenox Code status: Full code Quality Stroke Does the patient have a stroke diagnosis?: No VTE Prior VTE?: No VTE Risk Level:: Medical - moderate - high VTE Device Contraindication: Treatment Not Tolerated VTE Drug Contraindication: N/A - Med Ordered
[2025-04-16] MEDS: 0.9 % Sodium Chloride Flush 3 ML SYRINGE IVFLUSH ×3 (09:46→20:22)
[2025-04-16] MEDS: Furosemide 40 MG/4 ML VIAL IVPUSH (12:49)
[2025-04-16 15:28] VITALS: BP 178/69; PULSE 59; RESP 12; TEMP 36.2; O2SAT 92
--- NOTE | 2025-04-16 15:28 | PM.CNCAR ---
History of Present Illness History of Present Illness Date of Service: 04/16/25 Chief complaint: CHF Narrative: 80-year-old female presenting for shortness of breath and hypoxia along with confusion. She was noticed to be in heart failure and diuresed. Confusion was thought to be related to hypoxia and her imaging has been normal. She is doing fine this morning. Denying any chest pain or shortness of breath. Laying flat in bed and has no shortness of breath. She is not on any supplemental oxygen. Blood pressure control is good. [facility] Past Medical History Medical History Diabetes mellitus Depression Hypertension Hypothyroid Stroke Social History Social History Household Members: None Housing: Assisted Living Facility Do you presently have visiting nurse or other home services: No Unable to assess alcohol history related to: Unable to respond Comment: sitter Patient Tobacco Use Status: Never used Tobacco Smoked in Last 30 Days: No Use of substances other than those prescribed or required for medical reasons: No Currently Displaying Signs/Symptoms of Drug Intoxication Withdrawal: No Advance Directives: Yes Advance Directives on File: Yes Advance Directives Date on File: 03/09/25 Do you have a plan to hurt others: No Plan Recently lost weight without trying: Unsure Eating poorly because of decreased appetite: No Nutrition Risks: No Nutritional Risk Patient : No service: No Meds Allergies Allergy/AdvReac Type Severity Reaction Status Date / Time No Known Allergies Allergy Verified 04/14/25 10:09 Active Medications: Current Medications Acetaminophen (Acetaminophen 325 Mg Tablet) 650 mg PO Q6H PRN PRN Reason: Pain, Mild 1-3,fever,headache Al Hydroxide/Mg Hydroxide (Magnesium Hydrox/Alum Hydrox 30 Ml Oral.Susp) 15 ml PO Q6H PRN PRN Reason: Indigestion Amlodipine Besylate (Amlodipine Besylate 10 Mg Tablet) 10 mg PO DAILY [facility]; Protocol Last Admin: 04/16/25 09:45 Dose: 10 mg Atorvastatin Calcium (Atorvastatin Calcium 10 Mg Tablet) 10 mg PO BEDTIME [facility] Last Admin: 04/15/25 20:58 Dose: 10 mg Bisacodyl (Bisacodyl 10 Mg Supp.Rect) 10 mg [place] DAILY PRN PRN Reason: Constipation Calcium Carbonate (Calcium Carbonate 750 Mg Tab.Chew) 750 mg PO Q4H PRN PRN Reason: Heartburn Carvedilol (Carvedilol 3.125 Mg Tablet) 3.125 mg PO BID [facility]; Protocol Last Admin: 04/16/25 09:44 Dose: 3.125 mg Cyanocobalamin (Cyanocobalamin (Vitamin B-12) 1,000 Mcg Tablet) 1,000 mcg PO DAILY [facility] Last Admin: 04/16/25 09:43 Dose: 1,000 mcg Enoxaparin Sodium (Enoxaparin Sodium 30 Mg/0.3 Ml Syringe) 30 mg SUBCUT Q24H [facility] Last Admin: 04/15/25 16:33 Dose: 30 mg Furosemide (Furosemide 40 Mg/4 Ml Vial) 40 mg IVPUSH DAILY [facility]; Protocol Last Admin: 04/16/25 12:49 Dose: 40 mg Levothyroxine Sodium (Levothyroxine Sodium 112 Mcg Tablet) 112 mcg PO DAILY@0600 [facility] Last Admin: 04/16/25 06:11 Dose: 112 mcg Magnesium Hydroxide (Milk Of Magnesia 30 Ml Oral.Susp) 30 ml PO DAILY PRN PRN Reason: Constipation Magnesium Hydroxide (Milk Of Magnesia 30 Ml Oral.Susp) 30 ml PO DAILY PRN PRN Reason: Constipation Melatonin (Melatonin 3 Mg Tablet) 6 mg PO BEDTIME PRN PRN Reason: Insomnia Last Admin: 04/15/25 00:14 Dose: 6 mg Melatonin (Melatonin 3 Mg Tablet) 3 mg PO BEDTIME [facility] Last Admin: 04/15/25 20:59 Dose: 3 mg Nystatin (Nystatin Powder 15 Gm Bottle) 1 appl TOPICAL BID [facility]; Protocol Last Admin: 04/16/25 09:45 Dose: 1 appl Ondansetron HCl (Ondansetron Hcl 4 Mg/2 Ml Vial) 4 mg IVPUSH Q8H PRN PRN Reason: Nausea and Vomiting Polyethylene Glycol (Polyethylene Glycol 3350 17 Gm Powd.Pack) 17 gm PO DAILY PRN PRN Reason: Constipation Polyethylene Glycol (Polyethylene Glycol 3350 17 Gm Powd.Pack) 17 gm PO DAILY PRN PRN Reason: Constipation Sertraline HCl (Sertraline Hcl 25 Mg Tablet) 12.5 mg PO DAILY [facility] Last Admin: 04/16/25 09:43 Dose: 12.5 mg Sertraline HCl (Sertraline Hcl 25 Mg Tablet) 25 mg PO DAILY [facility] Last Admin: 04/16/25 09:44 Dose: 25 mg Sodium Biphosphate/Sodium Phosphate (Sodium Phosphate,[place]-Dibasic 133 Ml Enema) 118 ml [place] DAILY PRN PRN Reason: Constipation Sodium Chloride (0.9 % Sodium Chloride Flush 3 Ml Syringe) 3 ml IVFLUSH QSHIFT [facility] Last Admin: 04/16/25 09:46 Dose: 3 ml Trazodone HCl (Trazodone Hcl 25 Mg Halftab) 25 mg PO BEDTIME [facility] Last Admin: 04/15/25 20:58 Dose: 25 mg Valsartan (Valsartan 160 Mg Tablet) 160 mg PO DAILY [facility] Last Admin: 04/16/25 09:45 Dose: 160 mg Vitamin D (Cholecalciferol (Vitamin D3) 25 Mcg Tablet) 25 mcg PO DAILY [facility] Last Admin: 04/16/25 09:44 Dose: 25 mcg Home Medications ?Medication ?Instructions ?Recorded ?Confirmed ?Last Taken ?Type acetaminophen 325 mg tablet 650 mg PO Q6H PRN Fever Or Pain 03/09/25 04/14/25 Unknown History aluminum-mag hydroxide-simethicone 15 ml PO Q6H PRN Indigestion 03/09/25 04/14/25 Unknown History 400 mg-400 mg-40 mg/5 mL oral susp (Mylanta Maximum Strength) amlodipine 10 mg tablet 10 mg PO DAILY 03/09/25 04/14/25 Unknown History bisacodyl 10 mg rectal suppository 10 mg WA DAILY PRN Constipation 03/09/25 04/14/25 Unknown History cholecalciferol (vitamin D3) 25 25 mcg PO DAILY 03/09/25 04/14/25 Unknown History mcg (1,000 unit) tablet (Vitamin D3) cyanocobalamin (vitamin B-12) 1,000 mcg PO DAILY 03/09/25 04/14/25 Unknown History 1,000 mcg tablet (Vitamin B-12) irbesartan 300 mg tablet 300 mg PO DAILY 03/09/25 04/14/25 Unknown History levothyroxine 112 mcg tablet 112 mcg PO DAILY@0600 03/09/25 04/14/25 Unknown History magnesium hydroxide 400 mg/5 mL 30 ml PO DAILY PRN Constipation 03/09/25 04/14/25 Unknown History oral suspension (Milk of Magnesia) melatonin 3 mg tablet 3 mg PO BEDTIME 03/09/25 04/14/25 Unknown History menthol 5 % topical patch (Icy Hot 1 patch topical DAILY 03/09/25 04/14/25 Unknown History (menthol)) polyethylene glycol 3350 17 17 g PO DAILY PRN Constipation 03/09/25 04/14/25 Unknown History gram/dose oral powder (Miralax) sertraline 25 mg tablet 12.5 mg PO DAILY 03/09/25 04/14/25 Unknown History sertraline 50 mg tablet 25 mg PO DAILY 03/09/25 04/14/25 Unknown History simvastatin 10 mg tablet 10 mg PO BEDTIME 03/09/25 04/14/25 Unknown History sodium phosphates 19 gram-7 118 ml WA DAILY PRN Constipation 03/09/25 04/14/25 Unknown History gram/118 mL enema (Fleet Enema) trazodone 50 mg tablet 25 mg PO BEDTIME 03/09/25 04/14/25 Unknown History carvedilol 3.125 mg tablet (Coreg) 3.125 mg PO BID 04/14/25 04/14/25 Unknown History nystatin 100,000 unit/gram topical 1 appl topical BID 04/14/25 04/14/25 Unknown History powder ([facility]) Physical Exam Vital Signs: Vital Signs: Last Vital Signs Temp 96.9 F 04/16/25 07:57 Pulse 60 04/16/25 07:57 Resp 16 04/16/25 07:57 BP 140/68 H 04/16/25 07:57 Pulse Ox 92 04/16/25 07:57 O2 Del Method Room Air 04/16/25 07:57 O2 Flow Rate 2 04/15/25 07:20 Oxygen Flow Rate 2 04/14/25 10:07 BMI result Body Mass Index 34.0 GENERAL APPEARANCE: in no acute distress, pleasant. NECK: no carotid bruit, no jugular venous distention. SKIN: no suspicious lesions, warm and dry. HEART: no murmurs, regular rate and rhythm. LUNGS: clear to auscultation bilaterally. ABDOMEN: soft, nontender. EXTREMITIES: no edema. PERIPHERAL PULSES: equal. NEUROLOGIC: No gross deficits, AAO X 3 Objective Labs and Meds 04/16/25 05:44 04/16/25 05:44 Lab results: Laboratory Results - last 24 hr 04/16/25 05:44 WBC 6.5 RBC 3.49 L Hgb 9.6 L Hct 30.9 L MCV 88.5 MCH 27.5 MCHC 31.1 RDW 14.6 Plt Count 204 MPV 11.1 Absolute Nucleated RBC 0.000 Nucleated RBC % (auto) 0.0 Sodium 144 Potassium 4.0 Chloride 114 H Carbon Dioxide 21 L Anion Gap 13 BUN 27 H Creatinine 1.56 H Estim Creat Clear Calc 29.6 Estimated GFR 32 Random Glucose 81 Calcium 8.8 Assessment and Plan (1) CHF (congestive heart failure): Qualifiers: Heart failure chronicity: acute Heart failure type: unspecified Qualified Code(s): I50.9 - Heart failure, unspecified Status: Acute Plan Pleasant 80 year female with congestive heart failure. She has diuresed at this stage and overall is feeling better. I think she can be transitioned to oral diuretics tomorrow. Would favor starting her on 40 mg p.o. Lasix daily. We will follow along with you. Thank you for allowing me to participate in the care of your patient. Please feel free to contact me if you have any questions. Procedures Date of Service Date of Service: 04/16/25
[2025-04-16 16:44] VITALS: BP 172/68
[2025-04-16 19:58] VITALS: BP 168/72; PULSE 60; RESP 12; TEMP 36.6; O2SAT 92
[2025-04-16] MEDS: traZODone HCL 25 MG HALFTAB PO (20:21)
[2025-04-17 00:04] LABS: B Type Natriuretic Peptide 978 pg/mL (<100)
[2025-04-17 04:00] VITALS: BP 141/75; PULSE 61; RESP 18; TEMP 37.1; O2SAT 92
[2025-04-17 06:44] LABS: Anion Gap 15 (12-20); Blood Urea Nitrogen 27 mg/dL (9-16); Calcium 8.7 mg/dL (8.4-10.2); Carbon Dioxide 22 mmol/L (22-29); Chloride 111 mmol/L (96-108); Creatinine Clr Calc Pharmacy 27.8; Estimated Glomerular Filt Rate 30; Potassium 3.7 mmol/L (3.3-5.1); Sodium 144 mmol/L (135-145)
[2025-04-17 07:22] VITALS: BP 144/80; PULSE 60; RESP 18; TEMP 36.2; O2SAT 96
[2025-04-17 09:10] VITALS: BP 162/68
[2025-04-17] MEDS: Furosemide 40 MG/4 ML VIAL IVPUSH (09:10)
--- NOTE | 2025-04-17 10:00 | PM.DS ---
DS: Providers Provider Date of Service: 04/17/25 Date of admission: 04/14/25 14:56 Date of discharge: 04/17/25 Primary care physician: Rito Borjas MD Consults: 04/15/25 00:30 Consult to Wound Care Routine Reason for consultation: redness to buttocks 04/16/25 10:59 Consult to Cardiology Routine Consulting Provider: [facility] Reason for consultation: heart failure Has provider been notified: Yes DS: Diagnosis Discharge Diagnosis (1) CHF (congestive heart failure): Status: Acute DS: Summary Hospital Course Hospital Course: Chief Complaint: Altered mentail status 80/F with past medical history of vascular dementia, , age-related physical debility, HTN, hypothyroidism, HLD, GERD brought SNF to be evaluated for Altered mental status and garbled speech. No focal neuro deficit noted here however noted to by hypoxic with O2 saturation of 89% on RA, improved to 95 with 2 liters. CTA of head and neck, CT head.. No acute finding. CXR show mild pulmonary edema. BNP level is 1262. There is no UTI ED treatment. IV fluid x2 L followed by Lasix 40 mg. Hospital course: 80-year-old lady with past medical history of vascular dementia, dementia, age-related physical debility, HTN, hypothyroidism, HLD, GERD here with altered mental d/t hypoxia and found to have acute CHF Acute encephalopathy likely related to hypoxia, her mental status is back to her baseline, fully alert. UTI was ruled out Acute heart failure with preserved ejection fraction, last EF 55-60% last month. Treated with IV Lasix with rapid improvement, seen by cardillogy and will transition to oral Lasix 20 mg daily. Initial BNP was 1262 and now 978. Discharge with Lasix 20 mg daily Hypertension Coreg, Norvasc, Irbesartan Chronic kidney disease stage IIIB, at baseline. diabetes mellitus: resume prior regimen Hypothyroidism: Continue levothyroxine Mood disorder Sertraline, trazadone Dispo: Back to SNF Time Attestation Discharge Coordination Time (in mins): 45 Quality: Safe Use of Opioids Does Pt have an Active Cancer Diagnosis on the Problem List?: No Quality: Stroke Does the patient have a stroke diagnosis?: No Physical Exam Exam: Exam: General: AO X 3, no acute distress Resp: CTA bilateral CVS: S1,S2,RRR GI: +BS, NT, no distention Skin: No rash Neuro: motor grossly intact Psych: appropriate affect Vital Signs: Vital Signs: Last Vital Signs Temp 97.2 F 04/17/25 07:22 Pulse 60 04/17/25 07:22 Resp 18 04/17/25 07:22 BP 162/68 H 04/17/25 09:10 Pulse Ox 96 04/17/25 07:22 O2 Del Method Room Air 04/17/25 07:22 O2 Flow Rate 2 04/15/25 07:20 Oxygen Flow Rate 2 04/14/25 10:07 BMI result Body Mass Index 34.0 DS: Data Data Completed and Pending Completed studies during hospitalization [Text1]: Procedures Insertion of Endotracheal Airway into Trachea, Via Natural or Artificial Opening (03/09/25) Respiratory Ventilation, Less than 24 Consecutive Hours (03/09/25) Labs on day of discharge: Laboratory Results - last 24 hr 04/16/25 04/17/25 23:32 06:00 Sodium 144 Potassium 3.7 Chloride 111 H Carbon Dioxide 22 Anion Gap 15 BUN 27 H Creatinine 1.66 H Estim Creat Clear Calc 27.8 Estimated GFR 30 Random Glucose 88 Calcium 8.7 B-Natriuretic Peptide 978 H Discharge Plan Discharge Anticipated Discharge Date/Time: 04/17/25 09:55 Patient Disposition: [facility] Discharge Diagnosis: CHF, hypoxia, encephalopathy Referrals: [facility] [Outside] - 1 Week Rito Borjas MD [Primary Care Provider, Internal Medicine] - 1 Week Discharge Medications: New furosemide [Lasix] 20 mg tablet 20 mg PO DAILY Qty: 90 0RF Continued carvedilol [Coreg] 3.125 mg Tablet 3.125 mg PO BID Rx Instructions: must administer with a meal/food nystatin [Nyamyc] 100,000 unit/gram powder 1 appl topical BID Rx Instructions: Apply to bilateral breast acetaminophen 325 mg Tablet 650 mg PO Q6H MDD 3 gm/24h PRN (Reason: Fever Or Pain) trazodone 50 mg tablet 25 mg PO BEDTIME simvastatin 10 mg tablet 10 mg PO BEDTIME cyanocobalamin (vitamin B-12) [Vitamin B-12] 1,000 mcg Tablet 1,000 mcg PO DAILY melatonin 3 mg Tablet 3 mg PO BEDTIME magnesium hydroxide [Milk of Magnesia] 400 mg/5 mL Suspension 30 ml PO DAILY PRN (Reason: Constipation) Rx Instructions: (Step 1) If no BM for 3 days amlodipine 10 mg tablet 10 mg PO DAILY bisacodyl 10 mg Suppository 10 mg [place] DAILY PRN (Reason: Constipation) Rx Instructions: If no BM for 8 hours after M.O.M Fleet Enema 19-7 gram/118 mL Enema 118 ml [place] DAILY PRN (Reason: Constipation) Rx Instructions: (Step 3) If no BM for 8 hours after Bisacodyl Supp. sertraline 25 mg tablet 12.5 mg PO DAILY Rx Instructions: Give with 25 mg for a total dose =37.5 polyethylene glycol 3350 [Miralax] 17 gram/dose Powder 17 g PO DAILY PRN (Reason: Constipation) sertraline 50 mg tablet 25 mg PO DAILY Rx Instructions: Give with 12.5 mg for total dose =37.5 irbesartan 300 mg tablet 300 mg PO DAILY alum-mag hydroxide-simeth [Mylanta Maximum Strength] 400-400-40 mg/5 mL Suspension 15 ml PO Q6H PRN (Reason: Indigestion) levothyroxine 112 mcg tablet 112 mcg PO DAILY@0600 menthol [Icy Hot (menthol)] 5 % Adhesive Patch,Medicated 1 patch TOPICAL DAILY Rx Instructions: (B) knees cholecalciferol (vitamin D3) [Vitamin D3] 25 mcg (1,000 unit) Tablet 25 mcg PO DAILY Discharge Orders: Discharge Order (Routine); Ordered 04/17/25 Ordered By: Cheng Lizarraga Diet: Advance to usual diet Activity on Discharge: As tolerated Stand Alone Forms: Patient Portal Discharge page Print Language: Armenian Care Plan Goals: recovery from chf, encephalopathy Health Concerns: heart failure confusion Plan of Treatment: take Lasix as directed and follow up with you Assessment: see above Discharge Date/Time: 04/17/25 13:08
--- NOTE | 2025-04-17 10:45 | MHC.CM.PN ---
PT CLEARED TO RETURN TO LTC AT [facility] TODAY SON/HCP DON [phone] MADE AWARE VIA T/C BLS TRANSPORT BOOKED WITH [facility] FOR 1400 HOURS
[2025-04-17 12:59] VITALS: BP 164/62; PULSE 60; RESP 18; TEMP 36.2; O2SAT 94
--- NOTE | 2025-04-17 18:47 | P.CDIM_ITS ---
PROVIDER RESPONSE TEXT: To clarify, the appropriate diagnosis supported by the clinical indicators: Acute QUERY TEXT: PHYSICIAN'S DOCUMENTATION REQUEST Date of Query: 04/16/2025 08:25 AM EDT Patient Name: Beatrice Brown Admit Date: 04/14/2025 Dear Cheng Lizarraga MD, A review of the medical record indicates additional documentation may be needed. Please review below and update the documentation accordingly. Clinical Indicators: ED 04/14/25 - Clinical impression diagnosis: Metabolic acidosis and Hypoxia Altered mental status. Clarify which of the following accurately represents the acuity of the Metabolic acidosis: Possible options might include: Acute Chronic Other specified Other (explain) Clinically unable to determine (explain) Thank you, Vilma Santos, CCS, CDIS Use of terms such as suspected, likely, concern for, or probable (associated with a specific diagnosis that is being evaluated, monitored, or treated as if it exists) are acceptable and can be coded in the inpatient setting, when documented at the time of discharge. Please use your independent medical judgment in providing your response. THIS QUERY IS PART OF THE PERMANENT MEDICAL RECORD
== END 2025-04-17 13:08 | disposition skilled nursing facility (03) | DRG 291 ==
LOC: HO.ED 14:44 → HO.EDOVER 15:01 → HO.S3 19:32
PROVIDERS: Admitting Provider Internal Medicine; Emergency Provider Emergency Medicine; PCP Family Medicine; Visit Provider Internal Medicine
DX: I13.0 Hypertensive heart and chronic kidney disease with heart failure and stage 1 through stage 4 chronic kidney disease, or unspecified chronic kidney disease (principal); I50.31 Acute diastolic (congestive) heart failure; E87.21 Acute metabolic acidosis; G93.1 Anoxic brain damage, not elsewhere classified; E11.22 Type 2 diabetes mellitus with diabetic chronic kidney disease; N18.32 Chronic kidney disease, stage 3b; F01.50 Vascular dementia, unspecified severity, without behavioral disturbance, psychotic disturbance, mood disturbance, and anxiety; R53.81 Other malaise; E03.9 Hypothyroidism, unspecified; Z79.890 Hormone replacement therapy; Z79.899 Other long term (current) drug therapy
CPT/HCPCS: 36415; 36600; 70450; 70496; 70498; 71045; 71250; 80048; 80053; 81001; 82803; 82947; 83880; 85025; 85027; 93005; 99285; J1650; J1938; Q9967

== ENCOUNTER → 2025-04-14 09:33 | Outpatient (BNV) | payer MEDICARE, MEDICAID, SELFPAY | PROVIDERS: Emergency Provider Emergency Medicine; Visit Provider Radiology Diagnostic Radiology | DX: I51.7 Cardiomegaly (principal); I63.521 Cerebral infarction due to unspecified occlusion or stenosis of right anterior cerebral artery | CPT/HCPCS: 70450; 71250 ==

== ENCOUNTER → 2025-04-14 10:39 | Outpatient (BNV) | payer MEDICARE, MEDICAID, SELFPAY | PROVIDERS: Admitting Provider Internal Medicine; Emergency Provider Emergency Medicine; PCP Family Medicine; Visit Provider Internal Medicine Cardiovascular Disease | DX: I44.0 Atrioventricular block, first degree (principal); I25.2 Old myocardial infarction | CPT/HCPCS: 93010 ==

== ENCOUNTER 2025-04-14 14:56 | Outpatient (BNV) | payer MEDICARE, MEDICAID, SELFPAY | END 2025-04-15 01:18 | PROVIDERS: Admitting Provider Internal Medicine; Emergency Provider Emergency Medicine; PCP Family Medicine; Visit Provider Internal Medicine Cardiovascular Disease | DX: I25.2 Old myocardial infarction (principal) | CPT/HCPCS: 93010 ==

== ENCOUNTER → 2025-04-14 14:56 | Outpatient (BNV) | payer MEDICARE, MEDICAID, SELFPAY | PROVIDERS: Admitting Provider Internal Medicine; Emergency Provider Emergency Medicine; PCP Family Medicine; Visit Provider Internal Medicine Cardiovascular Disease | DX: I50.9 Heart failure, unspecified (principal) | CPT/HCPCS: 99222 ==

== ENCOUNTER → 2025-04-14 14:56 | Outpatient (BNV) | payer MEDICARE, MEDICAID, SELFPAY | PROVIDERS: Admitting Provider Internal Medicine; Emergency Provider Emergency Medicine; PCP Family Medicine; Visit Provider Internal Medicine | DX: N17.9 Acute kidney failure, unspecified (principal); N39.0 Urinary tract infection, site not specified; I50.9 Heart failure, unspecified | CPT/HCPCS: 99223; 99232; 99239 ==

== ENCOUNTER 2025-07-16 09:04 | Inpatient (IN) | payer MEDICARE, MEDICAID, SELFPAY ==
[2025-07-16] VITALS (29 sets, daily range): BP systolic 102–210; BP diastolic 38–90; PULSE 40–88; RESP 8–22; TEMP 34.9–37; O2SAT 90–100; BMI 33.8; BMI 32.0
--- NOTE | ~2025-07-16 | MR_ITS ---
EXAMINATION: MR BRAIN WITHOUT CONTRAST CLINICAL INFORMATION: ? Seizure. 80-year-old female. Patient presented with aphasia 07/16/2025. COMPARISON: MRI dated 03/09/2025. Correlation made with CT head 07/16/2025. TECHNIQUE: MRI of the brain was obtained using routine sequences without contrast. Examination performed on a Siemens 1.5 Elana high-field unit. FINDINGS: There is no diffusion restriction. There is no intracranial hemorrhage, acute infarction, mass effect, or edema. Ventricles, sulci, and cisterns are mildly diffusely somewhat prominent, in keeping with age-related cerebral and cerebellar volume loss. No hydrocephalus. No shift of midline. There is cystic encephalomalacia of the right temporal occipital lobe from prior infarction. There is associated mild hemosiderin deposition. Mild associated ex vacuo dilatation of the right lateral ventricular atrium. Old lacunar type infarcts are also noted in the right putamen, left external capsule, and right thalamus. There are scattered punctate and minimally confluent foci of white matter T2 hyperintensity in the periventricular, subcortical, and hemispheric deep white matter, and central miah. These foci are nonspecific but statistically relate to small vessel ischemic changes. Midline structures appear normally formed. The pituitary gland appears normal. Posterior fossa structures appear normal. Cerebellar tonsils are appropriately located. Major flow voids are preserved within the skull base. The globes and orbital contents demonstrate no abnormalities. There are bilateral lens replacements. Paranasal sinuses are clear bilaterally. The mastoids and tympanic cavities are normally aerated. Extracranial soft tissues demonstrate no abnormalities. No suspicious bone marrow changes are evident. Mild to moderate degenerative changes in both TM joints. Atlantoaxial joint demonstrates mild to moderate degenerative arthritis. MR/MR head/brain wo con IMPRESSION: 1. There is no evidence of intracranial hemorrhage, acute infarction, mass effect, or edema. 2. There is an old right parieto-occipital infarct with cystic encephalomalacia and mild ex vacuo dilatation of the right lateral ventricular atrium, and mild associated hemosiderin deposition. 3. There are old lacunar type infarcts in the right basal ganglia, right thalamus, and left external capsule. 4. There are mild to moderate white matter changes of small vessel ischemia. Electronically signed by: Doni Mcmullen MD 07/21/2025 01:53 PM [facility]
--- NOTE | ~2025-07-16 | CT_ITS ---
EXAMINATION: CT HEAD WITHOUT IV CONTRAST STROKE HISTORY: Aphasia. TECHNIQUE: Unenhanced helical CT of the head was performed per standard departmental protocol. Coronal and sagittal reformats of the head were also evaluated. One or more of the following techniques was used for dose reduction: Automated exposure control, adjustment of the mA and/or kV according to patient size, use of iterative reconstruction technique. DLP: 775 mGy-cm COMPARISON: Previous head CT most recent April 2025 FINDINGS: BRAIN: Old right AIR CHIPPER territory infarct in the right posterior occipital parietal lobes unchanged. Old right basal ganglia and left basal ganglia/external capsule lacunar infarcts unchanged. No evidence of an extra-axial collection. No evidence of intra or extra-axial hemorrhage. No mass, mass effect or acute infarct is seen. Ventricles and extra-axial CSF spaces are slightly prominent suggestive of mild generalized atrophy. There is mild nonspecific periventricular white matter disease. SINUSES: The visualized paranasal sinuses are clear. The mastoid air cells and middle ear cavities are well pneumatized. ORBITS: The visualized orbits are unremarkable. BONES/SOFT TISSUES: The extracranial soft tissues are unremarkable. The calvarium is intact. No suspicious lytic or sclerotic lesions. CT/CT head for STROKE IMPRESSION: No acute intracranial findings. Old right posterior parietal-occipital and right basal ganglia and left external capsule lacunar infarcts unchanged. No acute infarct or hemorrhage. Findings were communicated to [facility] for Dr. Palma by telephone on 07/16/2025 at 9:30 AM. Electronically signed by: Mariah Glass MD 07/16/2025 09:34 AM [facility]
--- NOTE | ~2025-07-16 | XR_ITS ---
EXAMINATION: XR CHEST CLINICAL INFORMATION: ETT position COMPARISON: April 14, 2025. TECHNIQUE: Frontal view of the chest was obtained. FINDINGS: The endotracheal tube is 2 cm above keven. Bilateral pleural effusions. NG tube in the duodenal bulb/second portion of duodenum region. Mild pulmonary edema. Cardiomediastinal silhouette size is normal. XR/XR chest 1V IMPRESSION: Endotracheal tube 2 cm above keven. NG tube placement at the gastroduodenal junction. Pulmonary edema and bilateral pleural effusions, (right. Electronically signed by: Shine Melendez MD 07/16/2025 10:46 AM EST
--- NOTE | ~2025-07-16 | CT_ITS ---
EXAMINATION: CTA NECK WITH CONTRAST (STROKE) CTA BRAIN WITH CONTRAST (STROKE) CLINICAL INFORMATION: Suspect acute stroke. Assess for major vessel occlusion. Please call report. COMPARISON: April 14, 2025. TECHNIQUE: CTA of the head and neck was performed in the axial plane from the mediastinum to the skull vertex using 70 mL Omnipaque 350 intravenous contrast. Additional reformatted multiplanar images including maximum intensity projection MIP images are generated on the CT workstation. This CT examination was performed using dose optimization techniques as appropriate, variously including the following: *Automated exposure control *Adjustment of mA and/or kV according to patient size (this includes techniques or standardized protocols for targeted exams where dose is matched to indication/reason for exam; i.e. extremities or head) *Use of iterative reconstruction technique. DLP: 712 mGy-cm FINDINGS: The degree of stenosis determined by criteria similar to NASCET. Chest CTA: Mixed plaques throughout the thoracic aortic arch and the origin of the left subclavian artery, left CCA and brachiocephalic trunk. No aneurysm or dissection, thoracic aorta. No focal stenosis. Bilateral large volume pleural effusions and pulmonary patchy groundglass. Patient is intubated. There is an NG tube in the intrathoracic esophagus. Neck CTA: Right CCA: Tortuosity. Normal patency. Calcified plaque. No focal stenosis. No intimal flap. Right ICA: Calcified plaque in the proximal segment representing 90% stenosis with trickling flow distally. No intimal flap. Left CCA: Tortuosity. Normal patency. Calcified plaque. No focal stenosis. No intimal flap. Left ICA: Normal patency. Calcified plaque representing 50% stenosis. No intimal flap. V1/V2 segments: Tortuosity. Normal patency. No focal stenosis. No intimal flap. Left vertebral artery slightly dominant. Brain CTA: Anterior cerebral circulation: ICAs: Calcified plaques in the petrous cavernous and supracavernous segments both ICAs. Normal patency. No focal stenosis. No intimal flap. No abrupt cut off. No vascular irregularity in the ICA terminus. MCA's: Normal patency. No focal stenosis. No abrupt cut off. Bifurcation/trifurcation demonstrated no vascular irregularity. ACAs: Normal patency. No focal stenosis. No abrupt cut off. Ophthalmic arteries are patent without gross vascular abnormality. Anterior communicating artery is patent without gross vascular abnormality. Left posterior communicating artery is small with faint enhancement. Posterior cerebral circulation: V3/V4 segments: Calcified plaques. Normal patency. No focal stenosis. No intimal flap. Left to artery is dominant. Posterior inferior cerebral arteries are patent without gross abnormality. Anterior inferior cerebral arteries are patent without gross abnormality. Basilar artery is patent with calcified plaque. No focal stenosis. No intimal flap. Superior cerebellar arteries are patent. tool builder: Left CCA is patent without focal stenosis or abrupt cut off. Right [employer] is from the segment,. Ancillary findings: Prior vascular insult right MCA territories thinning macrocystic encephalomalacia, right cuneus, right lingual gyrus/calcarine fissure. Frontoparietal atrophy, mild to moderate. Multifocal old lacunar infarcts basal ganglia, extracapsular roldan radiata white matter. No main cerebral venous sinus thrombosis. No gross intra-axial or extra-axial enhancement mass. Multilevel cervical and thoracic spondylosis. CT/CT angio head neck STROKE IMPRESSION: No acute main cerebral artery occlusion or embolus. 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 Calcified plaque representing 90% stenosis right ICA. Calcified plaque representing 50% stenosis, left ICA. No dissection. Atherosclerosis disease without dissection. Bilateral pleural effusions, large volume and likely pulmonary edema. This critical test result is communicated to: Emergency physician Dr. Srikanth Palma at 10:30 AM on July 16, 2025. Electronically signed by: Shine Melendez MD 07/16/2025 10:44 AM EST
[2025-07-16 09:11] LABS: Glucose, Whole Blood 119 mg/dL (60-115)
[2025-07-16] MEDS: diazePAM 10 MG/2 ML CARTRIDGE 5 MG IVPUSH (09:18)
[2025-07-16 09:23] LABS: Prothrombin Time Whole Bld POC 13.5 sec (11.1-13.5); ~PT, ~INR - Anti Coag Clinic 1.1 (0.9-1.1)
[2025-07-16] MEDS: Etomidate 20 MG/10 ML VIAL IVPUSH (09:30)
--- NOTE | 2025-07-16 09:38 | ECG_ITS ---
Test Reason : ?stroke Blood Pressure : */* mmHG Vent. Rate : 90 BPM Atrial Rate : 90 BPM P-R Int : 232 ms QRS Dur : 122 ms QT Int : 374 ms P-R-T Axes : 38 6 107 degrees QTcB Int : 457 ms Sinus rhythm with 1st degree A-V block Minimal voltage criteria for LVH, may be normal variant ( [place] product ) Septal infarct (cited on or before 09-Mar-2025) ST & T wave abnormality, consider lateral ischemia Abnormal ECG When compared with ECG of 15-Apr-2025 01:18, Poor quality in prior EKG Vent. rate has increased by 32 bpm T wave inversion no longer evident in Inferior leads T wave inversion now evident in Lateral leads Referred By: Srikanth Palma Electronically Signed By: CONSTANTINO AVILA MD
--- NOTE | 2025-07-16 09:39 | ED.AMS ---
HPI - Altered Mental Status General Chief Complaint: Stroke Stated Complaint: STROKE ALERT,SLURR,R WEAK, ?LKT,-THIN,FROM SNF Time Seen by Provider: 07/16/25 09:08 Source: EMS Limitations: altered mental status History of Present Illness HPI narrative: this is 80 years old the patient brought by the diamond mounter be cause of altered mental status last time seen normal was last night. Patient has a history of diabetes, hypertension, UTI. At arrival to the emergency department patient vomited she had a tonic-clonic generalized seizure. The patient was intubated to protect the airway. MD complaint: altered mental status and decreased responsiveness Onset (ago): day(s) (1) Severity: severe Context: history of similar presentation Related Data Home Medications ?Medication ?Instructions ?Recorded ?Confirmed acetaminophen 325 mg tablet 650 mg PO Q6H PRN Fever Or Pain 03/09/25 07/16/25 aluminum-mag hydroxide-simethicone 15 ml PO Q6H PRN Indigestion 03/09/25 07/16/25 400 mg-400 mg-40 mg/5 mL oral susp (Mylanta Maximum Strength) amlodipine 10 mg tablet 10 mg PO DAILY 03/09/25 07/16/25 bisacodyl 10 mg rectal suppository 10 mg [place] DAILY PRN Constipation 03/09/25 07/16/25 cholecalciferol (vitamin D3) 25 25 mcg PO DAILY 03/09/25 07/16/25 mcg (1,000 unit) tablet (Vitamin D3) cyanocobalamin (vitamin B-12) 1,000 mcg PO DAILY 03/09/25 07/16/25 1,000 mcg tablet (Vitamin B-12) irbesartan 300 mg tablet 300 mg PO DAILY 03/09/25 07/16/25 magnesium hydroxide 400 mg/5 mL 30 ml PO DAILY PRN Constipation 03/09/25 07/16/25 oral suspension (Milk of Magnesia) melatonin 3 mg tablet 3 mg PO BEDTIME 03/09/25 07/16/25 menthol 5 % topical patch (Icy Hot 1 patch topical DAILY 03/09/25 07/16/25 (menthol)) polyethylene glycol 3350 17 17 g PO DAILY PRN Constipation 03/09/25 07/16/25 gram/dose oral powder (Miralax) sertraline 25 mg tablet 37.5 mg PO DAILY 03/09/25 07/16/25 simvastatin 10 mg tablet 10 mg PO BEDTIME 03/09/25 07/16/25 sodium phosphates 19 gram-7 118 ml [place] DAILY PRN Constipation 03/09/25 07/16/25 gram/118 mL enema (Fleet Enema) trazodone 50 mg tablet 25 mg PO BEDTIME 03/09/25 07/16/25 carvedilol 3.125 mg tablet (Coreg) 3.125 mg PO BID 04/14/25 07/16/25 nystatin 100,000 unit/gram topical 1 appl topical BID 04/14/25 07/16/25 powder (Nyamyc) levothyroxine 125 mcg tablet 125 mcg PO DAILY 07/16/25 07/16/25 Previous Rx's ?Medication ?Instructions ?Recorded furosemide 20 mg tablet (Lasix) 20 mg PO DAILY #90 tabs 04/17/25 Allergies Allergy/AdvReac Type Severity Reaction Status Date / Time No Known Allergies Allergy Verified 07/16/25 10:14 Review of Systems Review of Systems: Yes Unobtainable due to mental condition [facility] Past Medical History Source: unable to obtain Medical History Diabetes mellitus Depression Hypertension Hypothyroid Stroke Social History Social History Household Members: Other Housing: Longterm Do you presently have visiting nurse or other home services: No Comment: bilateral wrist restraints..propofol drip Patient Tobacco Use Status: Never used Tobacco Currently Displaying Signs/Symptoms of Drug Intoxication Withdrawal: No Advance Directives: Yes Advance Directives on File: Yes Advance Directives Date on File: 03/09/25 Nutrition Risks: Dental problems Patient : No service: No Physical Exam ED Exam Exam: Altered mental status very lethargic Vital Signs: Vital Signs - 24 hr 07/16/25 09:31 07/16/25 09:53 07/16/25 10:11 Temperature 98.6 F Pulse Rate 80 88 Respiratory Rate 22 H 16 Blood Pressure 197/63 H 210/90 H Pulse Oximetry 100 90 L Oxygen Delivery Method Nasal Cannula Fraction of Inspired Oxygen 40 07/16/25 10:51 07/16/25 11:05 07/16/25 11:12 Temperature 94.8 F L Pulse Rate 55 56 Respiratory Rate 16 20 Blood Pressure 137/65 132/63 163/61 H Pulse Oximetry 95 95 Oxygen Delivery Method CPAP Mechanical Ventilation Fraction of Inspired Oxygen 40 BMI result Body Mass Index 32.0 Const Nutritional Appearance: well nourished Limitations: altered mental status HENMT Other: atraumatic Mouth: Normal oral and palatal mucosa present Throat: Yes posterior oropharynx normal Neck Neck: Yes normal visual inspection Chest Chest palpation & inspection: normal inspection of the chest Resp Effort & Inspection: normal respiratory effort Auscultation: clear to auscultation bilaterally Cardio Jugular venous distension: no JVD Rate: regular rate Rhythm: regular rhythm GI Other: obese nontender Palpation (GI): Soft to palpation and not firm Skin General skin exam: no rashes or lesions noted, elasticity normal and turgor normal Lesions: no lesions Rashes: no rashes Neuro Other: unresponsive Course Reevaluation(s) Reevaluation #1: patient was intubated with RSI because of seizure vomiting, at this time also she was noted to be hypothermic, blood culture done I am going to give 1 dose of antibiotic as well. Patient does not meet criteria for tNK Time: 11:13 Medications Administered Generic Name Dose Route Start Last Admin Trade Name Freq PRN Reason Stop Dose Admin Atorvastatin Calcium 10 mg 07/16/25 21:00 07/16/25 21:41 Atorvastatin Calcium 10 Mg Tablet PO 10 mg BEDTIME ZAIN Administration Famotidine 20 mg 07/16/25 11:30 07/16/25 21:41 Famotidine/Pf 20 Mg/2 Ml Vial IVPUSH 20 mg BID ZAIN Administration Heparin Sodium (Porcine) 5,000 unit 07/16/25 11:30 07/17/25 03:14 Heparin Sodium,Porcine 5,000 Unit/Ml Vial SUBCUT 5,000 unit Q8H ZAIN Administration Propofol 1,000 mg in 100 mls @ 0 mls/hr 07/16/25 09:45 07/17/25 05:51 Diprivan IVCONT 40 mcg/kg/min .Q0M ZAIN 22.78 mls/hr Protocol Administration Per Protocol Lactated Ringer's 1,000 mls @ 100 mls/hr 07/16/25 11:30 07/16/25 21:38 Lr IVCONT Not Given .Q10H ZAIN Fentanyl 1,000 mcg in 100 mls @ 5 mls/hr 07/16/25 11:30 07/16/25 12:10 Sublimaze/Ns IVCONT 0 mcg/hr .Q20H ZAIN 0 mls/hr Protocol Titration 50 MCG/HR Ceftriaxone Sodium 2 gm/ 50 mls @ 100 mls/hr 07/16/25 16:00 07/16/25 16:34 Sodium Chloride IV Infused Q24H ZAIN Infusion Levothyroxine Sodium 125 mcg 07/17/25 06:00 07/17/25 05:54 Levothyroxine Sodium 125 Mcg Tablet PO 125 mcg DAILY@0600 ZAIN Administration Discontinued Medications Generic Name Dose Route Start Last Admin Trade Name Hanselq PRN Reason Stop Dose Admin Diazepam 5 mg 07/16/25 09:18 07/16/25 09:18 Diazepam 10 Mg/2 Ml Cartridge IVPUSH 07/16/25 09:19 5 mg STAT STA Administration Etomidate 20 mg 07/16/25 09:41 07/16/25 09:30 Etomidate 20 Mg/10 Ml Vial IVPUSH 07/16/25 09:42 20 mg ONCE ONE Administration Fentanyl 100 mcg 07/16/25 09:52 07/16/25 09:55 Fentanyl Citrate/Pf 100 Mcg/2 Ml Vial IVPUSH 07/16/25 09:53 100 mcg ONCE ONE Administration Protocol Furosemide 40 mg 07/16/25 11:01 07/16/25 11:12 Furosemide 40 Mg/4 Ml Vial IVPUSH 07/16/25 11:02 40 mg ONCE ONE Administration Protocol Levetiracetam 2,000 mg/ Sodium 120 mls @ 480 mls/hr 07/16/25 09:21 07/16/25 09:52 Chloride IV 07/16/25 09:35 Infused ONCE ONE Infusion Piperacillin Sod/Tazobactam 100 mls @ 200 mls/hr 07/16/25 11:11 07/16/25 11:52 Sod 4.5 gm/ Sodium Chloride IV 07/16/25 11:40 Infused ONCE ONE Infusion Iohexol 100 ml 07/16/25 10:07 07/16/25 10:07 Iohexol 350 Mg/Ml 100 Ml Infus..Btl IV 07/16/25 10:08 70 ml ONCE ONE Administration Ondansetron HCl 4 mg 07/16/25 09:11 07/16/25 09:29 Ondansetron Hcl 4 Mg/2 Ml Vial IVPUSH 07/16/25 09:12 4 mg ONCE ONE Administration Succinylcholine Chloride 100 mg 07/16/25 09:42 07/16/25 09:30 Succinylcholine Chloride 200 Mg/10 Ml Vial IVPUSH 07/16/25 09:43 100 mg ONCE ONE Administration Medical Decision Making Medical Decision Making [facility] Narrative: patient presented with altered mental status last time seen normal was yesterday vomited had seizure in CT she was intubated to protect the airway. Differential Diagnosis Differential Diagnoses: The differential diagnosis associated with the presentation includes SENIOR SOFTWARE ANALYST bleed/ UTI/hyponatremia/ hypernatremia Admission/Observation Consideration of admission/observation: Escalation of care including admission/observation considered Consult Healthcare Provider pediatric occupational therapist Lab Data [facility] Lab Attestation statement: I reviewed the patient's lab results. 07/17/25 04:43 07/17/25 04:43 Labs: Lab Results 07/16/25 07/16/25 07/16/25 Range/Units 09:08 09:17 10:36 WBC 7.1 (4.8-10.8) X10*3/uL RBC 3.58 L (4.20-5.50) X10*6/uL Hgb 9.9 L (12.0-16.0) g/dl Hct 30.4 L (37.0-47.0) % MCV 84.9 (80.0-98.0) fL MCH 27.7 (27.0-33.0) pg MCHC 32.6 (31.0-35.0) g/dl RDW 15.1 (11.0-16.0) % Plt Count 208 (160-400) X10*3/uL MPV 10.9 (9.4-12.3) fL Immature Gran % (Auto) 0.6 H (0.0-0.4) % Neut % (Auto) 81.4 H (45-73) % Lymph % (Auto) 10.2 L (20-40) % [place] % (Auto) 3.6 (2-11) % Eos % (Auto) 3.8 (0-4) % Baso % (Auto) 0.4 (0-2) % Lymph # (Auto) 0.7 L (1.2-4.9) X10*3/uL [place] # (Auto) 0.3 (0.1-1.2) X10*3/uL Eos # (Auto) 0.3 (0.0-0.4) X10*3/uL Baso # (Auto) 0.0 (0.0-0.2) X10*3/uL Abs Immat Gran (auto) 0.04 H (0.00-0.03) X10*3/uL Absolute Neuts (auto) 5.8 (2.0-8.3) x10*3/uL Absolute Nucleated RBC 0.000 (0.0-0.012) X10*3/uL Nucleated RBC % (auto) 0.0 (0.0-0.2) /100WBC PT 12.0 (11.2-13.5) SEC Whole Blood PT 13.5 (11.1-13.5) sec INR 1.0 (0.9-1.1) Whole Blood INR 1.1 (0.9-1.1) APTT 29.8 (26.7-34.1) SEC O2 Saturation % ABG pH at Pt Temp (7.35-7.45) ABG pCO2 at Pt Temp (32-45) mmHg ABG pO2 at Pt Temp (83-108) mmHg ABG HCO3 (22-26) mmol/L ABG Base Excess (Actual) mmol/L VBG pH (7.32-7.43) VBG pCO2 mmHg VBG pO2 mmHg VBG HCO3 (22-26) mmol/L VBG O2 Saturation % VBG Base Excess mmol/L Sodium 138 (135-145) mmol/L Potassium 4.4 (3.3-5.1) mmol/L Chloride 116 H (96-108) mmol/L Carbon Dioxide 14 L (22-29) mmol/L Anion Gap 12 (12-20) BUN 39 H (9-16) mg/dL Creatinine 1.86 H (0.5-1.4) mg/dL Estim Creat Clear Calc 26.8 Estimated GFR 26 POC Glucose 119 H (60-115) mg/dL Random Glucose 155 H (60-115) mg/dL Lactic Acid 1.1 (0.5-2.0) mmol/L Calcium 8.3 L (8.4-10.2) mg/dL Total Bilirubin 0.3 (0.0-1.0) mg/dL AST 17 (5-31) U/L ALT < 6 (0-31) U/L Alkaline Phosphatase 93 (39-117) U/L Troponin I High Sens 103.3 H* D (<3.5-17.0) ng/L NT-Pro-B Natriuret Pep 64501.8 H (<300) pg/mL Total Protein 5.9 L (6.5-8.0) g/dL Albumin 3.1 L (3.5-5.0) g/dL Urine Color Urine Appearance Urine pH (5.0-9.0) Ur Specific [place] (1.005-1.025) Urine Protein (Neg-Trace) mg/dL Urine Glucose (UA) (Negative) mg/dL Urine Ketones (Negative) mg/dL Urine Blood (Negative) Urine Nitrite (Negative) Ur Leukocyte Esterase (Negative) Urine RBC (0-2) /HPF Urine WBC (0-5) /HPF Ur Squamous Epith Cells (0-2) /HPF Urine Bacteria (None Seen) Hyaline Casts (0-2) /LPF 07/16/25 07/16/25 07/16/25 Range/Units 10:46 10:49 10:51 WBC (4.8-10.8) X10*3/uL RBC (4.20-5.50) X10*6/uL Hgb (12.0-16.0) g/dl Hct (37.0-47.0) % MCV (80.0-98.0) fL MCH (27.0-33.0) pg MCHC (31.0-35.0) g/dl RDW (11.0-16.0) % Plt Count (160-400) X10*3/uL MPV (9.4-12.3) fL Immature Gran % (Auto) (0.0-0.4) % Neut % (Auto) (45-73) % Lymph % (Auto) (20-40) % [place] % (Auto) (2-11) % Eos % (Auto) (0-4) % Baso % (Auto) (0-2) % Lymph # (Auto) (1.2-4.9) X10*3/uL [place] # (Auto) (0.1-1.2) X10*3/uL Eos # (Auto) (0.0-0.4) X10*3/uL Baso # (Auto) (0.0-0.2) X10*3/uL Abs Immat Gran (auto) (0.00-0.03) X10*3/uL Absolute Neuts (auto) (2.0-8.3) x10*3/uL Absolute Nucleated RBC (0.0-0.012) X10*3/uL Nucleated RBC % (auto) (0.0-0.2) /100WBC PT (11.2-13.5) SEC Whole Blood PT (11.1-13.5) sec INR (0.9-1.1) Whole Blood INR (0.9-1.1) APTT (26.7-34.1) SEC O2 Saturation 98.0 % ABG pH at Pt Temp 7.30 L (7.35-7.45) ABG pCO2 at Pt Temp 29 L (32-45) mmHg ABG pO2 at Pt Temp 92 (83-108) mmHg ABG HCO3 14 L (22-26) mmol/L ABG Base Excess (Actual) -10.2 mmol/L VBG pH 7.39 (7.32-7.43) VBG pCO2 23 mmHg VBG pO2 304 mmHg VBG HCO3 14 L (22-26) mmol/L VBG O2 Saturation 100.0 % VBG Base Excess -8.8 mmol/L Sodium (135-145) mmol/L Potassium (3.3-5.1) mmol/L Chloride (96-108) mmol/L Carbon Dioxide (22-29) mmol/L Anion Gap (12-20) BUN (9-16) mg/dL Creatinine (0.5-1.4) mg/dL Estim Creat Clear Calc Estimated GFR POC Glucose (60-115) mg/dL Random Glucose (60-115) mg/dL Lactic Acid (0.5-2.0) mmol/L Calcium (8.4-10.2) mg/dL Total Bilirubin (0.0-1.0) mg/dL AST (5-31) U/L ALT (0-31) U/L Alkaline Phosphatase (39-117) U/L Troponin I High Sens (<3.5-17.0) ng/L NT-Pro-B Natriuret Pep (<300) pg/mL Total Protein (6.5-8.0) g/dL Albumin (3.5-5.0) g/dL Urine Color Yellow Urine Appearance Cloudy Urine pH 5.5 (5.0-9.0) Ur Specific [place] 1.015 (1.005-1.025) Urine Protein 300 (3+) H (Neg-Trace) mg/dL Urine Glucose (UA) Negative (Negative) mg/dL Urine Ketones Negative (Negative) mg/dL Urine Blood Small (1+) H (Negative) Urine Nitrite Negative (Negative) Ur Leukocyte Esterase Moderate (2+) H (Negative) Urine RBC 0-2 (0-2) /HPF Urine WBC >50 H (0-5) /HPF Ur Squamous Epith Cells >20 (0-2) /HPF Urine Bacteria 4+ (None Seen) Hyaline Casts 0-2 (0-2) /LPF Independent Interpretation I performed an independent interpretation of an: EKG Interpretation: EKG was reviewed interpreted by me as sinus rhythm rate 90 intraventricular conduction delayed artifact Radiology Impression Discussion of test interpretation with radiology: I have reviewed the radiologist's reading. Independent Historian Clinical information obtained from an independent historian. History obtained from or confirmed by: Other (Son) External Record Review External record reviewed: Inpatient record Social Determinants Patient?s care significantly limited by Social Determinants of Health including: Other Social Determinant of Health care home resident Procedures Intubation Intubation Type:: Endotracheal Tube Insertion Intubation Date:: 07/16/25 Intubation Time:: 09:45 Time out performed: Yes sedative: Etomidate Mg Given: 20 paralytic: Succinylcholine Assist Device Used: fiber optic device ET Tube Size: 7.5 ET Tube Uncuffed: Yes Tube Secured Location: teeth Tube Placement Confirmation: visualized tube passing through cords, equal breath sounds bilaterally and confirmation by capnometry Patient Tolerated Procedure: well Intubation Complications: none Critical Care Time Critical Care Time Critical Care Time: Yes Total Critical Care Time: 60 Attestation: taking care of the patient, speaking to the EMS pre-hospital, speaking with the son Discharge Plan Discharge Clinical Impression: Seizure, Bilateral pleural effusion Altered mental status Qualifiers: Altered mental status type: unspecified Qualified Code(s): R41.82 - Altered mental status, unspecified Acute respiratory failure Qualifiers: Respiratory failure complication: hypoxia Qualified Code(s): J96.01 - Acute respiratory failure with hypoxia CHF (congestive heart failure) Qualifiers: Heart failure type: unspecified Heart failure chronicity: acute Qualified Code(s): I50.9 - Heart failure, unspecified Hypothermia Qualifiers: Encounter type: initial encounter Qualified Code(s): T68.XXXA - Hypothermia, initial encounter Patient Disposition: Admitted As Inpatient Interventions: Admission Worksheet (ED) Last Done: 07/16/25 12:01 Discharge Date/Time: 07/16/25 12:01
[2025-07-16] MEDS: iohexoL 350 MG/ML 100 ML INFUS..BTL IV (10:07)
--- NOTE | 2025-07-16 10:16 | PC.NURSE ---
pt was intubated with succ and etomidate at [phone] with a 7.5 ett 24 at lips. proprofla at 50mcg for sedation, pt required 100mcg fentanyl to facilitated cta. hr now 50, she is back in room 4, son is aware of her condition ems iv is still patent but a additional 20 ga is in lac.
--- NOTE | 2025-07-16 10:37 | PC.NURSE ---
VS: 945 BP199/76 HR79 1025 BP131/48 HR60 etco2 24 1037 BP123/47 HR63 Temps sensing fc has been placed. pt tolerating vent, propofol titrated. [facility] he is HCP his phone# is as follows [phone]. Lorenzo has been updated as to condition and plan of care.
[2025-07-16 10:41] LABS: MANUAL DIFF FLAG NO
[2025-07-16 10:48] LABS: Hematocrit 30.4 % (37.0-47.0); Hemoglobin 9.9 g/dl (12.0-16.0); Imm Gran Abs Auto 0.04 X10*3/uL (0.00-0.03); Imm Gran Pct Auto 0.6 % (0.0-0.4); Lymphocytes Absolute Auto 0.7 X10*3/uL (1.2-4.9); Mean Corpuscular HGB Conc 32.6 g/dl (31.0-35.0); Mean Corpuscular Hemoglobin 27.7 pg (27.0-33.0); Mean Corpuscular Volume 84.9 fL (80.0-98.0); NRBC Abs Auto 0.000 X10*3/uL (0.0-0.012); NRBC Pct Auto 0.0 /100WBC (0.0-0.2); Platelet Count 208 X10*3/uL (160-400); Red Blood Count 3.58 X10*6/uL (4.20-5.50); White Blood Count 7.1 X10*3/uL (4.8-10.8)
--- NOTE | 2025-07-16 10:50 | PHA.MEDREC ---
Pharmacy Consult ? Medication Reconciliation Pharmacy has completed the medication reconciliation. [facility].
[2025-07-16 10:53] LABS: INTERNATIONAL NORM RATIO 1.0 (0.9-1.1); Prothrombin Time 12.0 SEC (11.2-13.5)
[2025-07-16 10:53] LABS: ABG HCO3 14 mmol/L (22-26); ABG O2 % Saturation 98.0 %
[2025-07-16 10:55] LABS: Partial Thromboplastin Time 29.8 SEC (26.7-34.1)
[2025-07-16 10:55] LABS: Venous Blood Gas Refer to POC result
[2025-07-16 10:56] LABS: VBG HCO3 14 mmol/L (22-26); VBG O2 % Saturation 100.0 %
[2025-07-16 11:00] LABS: Alanine Aminotransferase < 6 U/L (0-31); Albumin Level 3.1 g/dL (3.5-5.0); Alkaline Phosphatase 93 U/L (39-117); Anion Gap 12 (12-20); Aspartate Amino Transferase 17 U/L (5-31); Blood Urea Nitrogen 39 mg/dL (9-16); Calcium 8.3 mg/dL (8.4-10.2); Carbon Dioxide 14 mmol/L (22-29); Chloride 116 mmol/L (96-108); Creatinine Clr Calc Pharmacy 26.8; Estimated Glomerular Filt Rate 26; Potassium 4.4 mmol/L (3.3-5.1); Sodium 138 mmol/L (135-145); Total Protein 5.9 g/dL (6.5-8.0)
--- NOTE | 2025-07-16 11:05 | MHC.STROKE ---
Called to ED for potential stroke alert. Pt with recent admission to [facility]. Pt sent to CT scan on arrival however began to seize and required intubation. Pt was intubated and then CTA was obtained. Radiology spoke with Dr. Palma. No bleed on head CT and no LVO noted on CTA. Will continue to assist as needed.
--- NOTE | 2025-07-16 11:06 | PC.NURSE ---
Assumed care of patient at this time. Pt sedated on 40mcg Prop, intubated; 40 % FiO2, 5.0 PEEP. [address] in [address] to low suction. Temp sensing FC in place. Noted to be 94.8. Warming blanket placed at this time.
[2025-07-16 11:07] LABS: Appearance Urine Cloudy; Glucose Urine UA Negative (Negative); PH 5.5 (5.0-9.0); Specific Gravity - Urine 1.015 (1.005-1.025); UMIC TRIGGER UACC YES
[2025-07-16 11:11] LABS: Troponin-I High Sensitivity 103.3 ng/L (<3.5-17.0)
[2025-07-16] MEDS: Furosemide 40 MG/4 ML VIAL IVPUSH (11:12)
[2025-07-16 11:25] LABS: UACC Culture Trigger YES
[2025-07-16] MEDS: Lactated Ringers 1,000 ML 100 ML IVCONT (11:34)
[2025-07-16] MEDS: fentaNYL citrate/NS 1,000 MCG/100 ML PLAST..BAG 5 MCG IVCONT (11:35)
--- NOTE | 2025-07-16 11:53 | PC.NURSE ---
Nurse to nurse given to CHRIS Parker in ICU
--- NOTE | 2025-07-16 12:15 | PM.CCHP ---
History of Present Illness Date of Service: 07/16/25 Chief Complaint: Altered sensory system 80-year-old lady with past medical history of vascular dementia, dementia, age-related physical debility, HTN, hypothyroidism, HLD, GERD was apparently at her baseline until last night. This morning patient was found unresponsive so EMS was called and was brought into the emergency room. In the ER patient was unable to protect her airway so she is intubated and placed on ventilator support. 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 Labs suggestive of no leukocytosis, chronic anemia, acute on CKD with creatinine 1.8, troponin 101 and elevated BNP to 12K TTE in March showed normal EF, mild to moderate aortic stenosis ICU consulted for admission She had a MOLST form as DNR/DNI, the healthcare proxy Lorenzo reversed her code status. Review of Systems Review of Systems: Unable to obtain as patient is intubated [facility] Past Medical History Medical History Diabetes mellitus Depression Hypertension Hypothyroid Stroke Social History Social History Household Members: None Housing: Assisted Living Facility Do you presently have visiting nurse or other home services: No Comment: sitter Patient Tobacco Use Status: Never used Tobacco Advance Directives: Yes Advance Directives on File: Yes Advance Directives Date on File: 03/09/25 service: No Meds Allergies Allergy/AdvReac Type Severity Reaction Status Date / Time No Known Allergies Allergy Verified 07/16/25 10:14 Active Medications: Current Medications Acetaminophen (Acetaminophen 325 Mg Tablet) 650 mg PO Q6H PRN PRN Reason: Fever >100.4 Atorvastatin Calcium (Atorvastatin Calcium 10 Mg Tablet) 10 mg PO BEDTIME ZAIN Famotidine (Famotidine/Pf 20 Mg/2 Ml Vial) 20 mg IVPUSH BID ZAIN Last Admin: 07/16/25 11:34 Dose: 20 mg Heparin Sodium (Porcine) (Heparin Sodium,Porcine 5,000 Unit/Ml Vial) 5,000 unit SUBCUT Q8H [facility] Last Admin: 07/16/25 11:34 Dose: 5,000 unit Propofol (Diprivan) 1,000 mg in 100 mls @ 0 mls/hr IVCONT .Q0M [facility]; Protocol Last Titration: 07/16/25 10:41 Dose: 40 mcg/kg/min, 22.78 mls/hr Lactated Ringer's (Lr) 1,000 mls @ 100 mls/hr IVCONT .Q10H [facility] Last Admin: 07/16/25 11:34 Dose: 100 mls/hr Fentanyl (Sublimaze/Ns) 1,000 mcg in 100 mls @ 5 mls/hr IVCONT .Q20H [facility]; Protocol Last Admin: 07/16/25 11:35 Dose: 50 mcg/hr, 5 mls/hr Levothyroxine Sodium (Levothyroxine Sodium 125 Mcg Tablet) 125 mcg PO DAILY@0600 [facility] Naloxone HCl (Naloxone Hcl 0.4 Mg/Ml Vial) 0.2 mg IVPUSH Q2M PRN PRN Reason: Excessive sedation or RR < 8 Ondansetron HCl (Ondansetron Hcl 4 Mg/2 Ml Vial) 4 mg IVPUSH Q8H PRN PRN Reason: Nausea and Vomiting Sertraline HCl (Sertraline Hcl 25 Mg Tablet) 37.5 mg PO DAILY [facility] Home Medications ?Medication ?Instructions ?Recorded ?Confirmed ?Last Taken ?Type acetaminophen 325 mg tablet 650 mg PO Q6H PRN Fever Or Pain 03/09/25 07/16/25 Unknown History aluminum-mag hydroxide-simethicone 15 ml PO Q6H PRN Indigestion 03/09/25 07/16/25 Unknown History 400 mg-400 mg-40 mg/5 mL oral susp (Mylanta Maximum Strength) amlodipine 10 mg tablet 10 mg PO DAILY 03/09/25 07/16/25 Unknown History bisacodyl 10 mg rectal suppository 10 mg LA DAILY PRN Constipation 03/09/25 07/16/25 Unknown History cholecalciferol (vitamin D3) 25 25 mcg PO DAILY 03/09/25 07/16/25 Unknown History mcg (1,000 unit) tablet (Vitamin D3) cyanocobalamin (vitamin B-12) 1,000 mcg PO DAILY 03/09/25 07/16/25 Unknown History 1,000 mcg tablet (Vitamin B-12) irbesartan 300 mg tablet 300 mg PO DAILY 03/09/25 07/16/25 Unknown History magnesium hydroxide 400 mg/5 mL 30 ml PO DAILY PRN Constipation 03/09/25 07/16/25 Unknown History oral suspension (Milk of Magnesia) melatonin 3 mg tablet 3 mg PO BEDTIME 03/09/25 07/16/25 Unknown History menthol 5 % topical patch (Icy Hot 1 patch topical DAILY 03/09/25 07/16/25 Unknown History (menthol)) polyethylene glycol 3350 17 17 g PO DAILY PRN Constipation 03/09/25 07/16/25 Unknown History gram/dose oral powder (Miralax) sertraline 25 mg tablet 37.5 mg PO DAILY 03/09/25 07/16/25 Unknown History simvastatin 10 mg tablet 10 mg PO BEDTIME 03/09/25 07/16/25 Unknown History sodium phosphates 19 gram-7 118 ml LA DAILY PRN Constipation 03/09/25 07/16/25 Unknown History gram/118 mL enema (Fleet Enema) trazodone 50 mg tablet 25 mg PO BEDTIME 03/09/25 07/16/25 Unknown History carvedilol 3.125 mg tablet (Coreg) 3.125 mg PO BID 04/14/25 07/16/25 Unknown History nystatin 100,000 unit/gram topical 1 appl topical BID 04/14/25 07/16/25 Unknown History powder (Nyamyc) levothyroxine 125 mcg tablet 125 mcg PO DAILY 07/16/25 07/16/25 Unknown History Physical Exam Vital Signs: Vital Signs: Last Vital Signs Temp 95.2 F L 07/16/25 11:40 Pulse 58 07/16/25 11:40 Resp 20 07/16/25 11:40 BP 139/61 07/16/25 11:40 Pulse Ox 96 07/16/25 11:40 O2 Del Method Mechanical Ventil ation 07/16/25 11:40 FiO2 40 07/16/25 11:40 BMI result Body Mass Index 32.0 General: acute distress, ill appearing and tired appearing Nutritional Appearance: well nourished and overweight Eyes: appearance normal, both eyes and all related structures; Alignment and Position: alignment normal and position normal Neck: No lymphadenopathy, no thyromegaly Resp: bilateral air entry equal, occasional added sounds present Cardio: Regular rate, regular rhythm; Heart sounds: S1 normal heart sound present and S2 normal heart sound present GI: soft, nontender, no guarding, no hepatosplenomegaly : bladder normal to inspection, bladder normal to palpation, no renal angle tenderness Skin: no rashes or lesions noted and elasticity normal Neuro: oriented to person, oriented to place, oriented to time and moves all extremities Results Labs 07/16/25 10:36 07/16/25 10:36 Labs: Laboratory Results - last 24 hr 07/16/25 07/16/25 07/16/25 09:08 09:17 10:36 MCV 84.9 MCH 27.7 MCHC 32.6 RDW 15.1 Plt Count 208 MPV 10.9 Immature Gran % (Auto) 0.6 H Neut % (Auto) 81.4 H Lymph % (Auto) 10.2 L Pacific % (Auto) 3.6 Eos % (Auto) 3.8 Baso % (Auto) 0.4 Lymph # (Auto) 0.7 L [place] # (Auto) 0.3 Eos # (Auto) 0.3 Baso # (Auto) 0.0 Abs Immat Gran (auto) 0.04 H Absolute Neuts (auto) 5.8 Absolute Nucleated RBC 0.000 Nucleated RBC % (auto) 0.0 PT 12.0 Whole Blood PT 13.5 INR 1.0 Whole Blood INR 1.1 APTT 29.8 O2 Saturation ABG pH at Pt Temp ABG pCO2 at Pt Temp ABG pO2 at Pt Temp ABG HCO3 ABG Base Excess (Actual) VBG pH VBG pCO2 VBG pO2 VBG HCO3 VBG O2 Saturation VBG Base Excess Anion Gap 12 Estim Creat Clear Calc 26.8 Estimated GFR 26 POC Glucose 119 H Random Glucose 155 H Lactic Acid 1.1 Calcium 8.3 L Phosphorus Total Bilirubin 0.3 AST 17 ALT < 6 Alkaline Phosphatase 93 Troponin I High Sens 103.3 H* D NT-Pro-B Natriuret Pep 77170.8 H Total Protein 5.9 L Albumin 3.1 L Urine Color Urine Appearance Urine pH Ur Specific [place] Urine Protein Urine Glucose (UA) Urine Ketones Urine Blood Urine Nitrite Ur Leukocyte Esterase Urine RBC Urine WBC Ur Squamous Epith Cells Urine Bacteria Hyaline Casts 1107/16/25 07/16/25 10:46 10:49 10:51 MCV MCH MCHC RDW Plt Count MPV Immature Gran % (Auto) Neut % (Auto) Lymph % (Auto) Pacific % (Auto) Eos % (Auto) Baso % (Auto) Lymph # (Auto) [place] # (Auto) Eos # (Auto) Baso # (Auto) Abs Immat Gran (auto) Absolute Neuts (auto) Absolute Nucleated RBC Nucleated RBC % (auto) PT Whole Blood PT INR Whole Blood INR APTT O2 Saturation 98.0 ABG pH at Pt Temp 7.30 L ABG pCO2 at Pt Temp 29 L ABG pO2 at Pt Temp 92 ABG HCO3 14 L ABG Base Excess (Actual) -10.2 VBG pH 7.39 VBG pCO2 23 VBG pO2 304 VBG HCO3 14 L VBG O2 Saturation 100.0 VBG Base Excess -8.8 Anion Gap Estim Creat Clear Calc Estimated GFR POC Glucose Random Glucose Lactic Acid Calcium Phosphorus Total Bilirubin AST ALT Alkaline Phosphatase Troponin I High Sens NT-Pro-B Natriuret Pep Total Protein Albumin Urine Color Yellow Urine Appearance Cloudy Urine pH 5.5 Ur Specific [place] 1.015 Urine Protein 300 (3+) H Urine Glucose (UA) Negative Urine Ketones Negative Urine Blood Small (1+) H Urine Nitrite Negative Ur Leukocyte Esterase Moderate (2+) H Urine RBC 0-2 Urine WBC >50 H Ur Squamous Epith Cells >20 Urine Bacteria 4+ Hyaline Casts 0-2 07/16/25 11:51 MCV MCH MCHC RDW Plt Count MPV Immature Gran % (Auto) Neut % (Auto) Lymph % (Auto) [place] % (Auto) Eos % (Auto) Baso % (Auto) Lymph # (Auto) [place] # (Auto) Eos # (Auto) Baso # (Auto) Abs Immat Gran (auto) Absolute Neuts (auto) Absolute Nucleated RBC Nucleated RBC % (auto) PT Whole Blood PT INR Whole Blood INR APTT O2 Saturation ABG pH at Pt Temp ABG pCO2 at Pt Temp ABG pO2 at Pt Temp ABG HCO3 ABG Base Excess (Actual) VBG pH VBG pCO2 VBG pO2 VBG HCO3 VBG O2 Saturation VBG Base Excess Anion Gap Estim Creat Clear Calc Estimated GFR POC Glucose Random Glucose Lactic Acid Calcium Phosphorus 4.2 Total Bilirubin AST ALT Alkaline Phosphatase Troponin I High Sens NT-Pro-B Natriuret Pep Total Protein Albumin Urine Color Urine Appearance Urine pH Ur Specific [place] Urine Protein Urine Glucose (UA) Urine Ketones Urine Blood Urine Nitrite Ur Leukocyte Esterase Urine RBC Urine WBC Ur Squamous Epith Cells Urine Bacteria Hyaline Casts Imaging Radiologist's Impressions: Impressions Head CT 07/16/25 09:11 IMPRESSION: No acute intracranial findings. Old right posterior parietal-occipital and right basal ganglia and left external capsule lacunar infarcts unchanged. No acute infarct or hemorrhage. Findings were communicated to [facility] for Dr. Palma by telephone on 07/16/2025 at 9:30 AM. Electronically signed by: Mariah Glass MD 07/16/2025 09:34 AM EST RP Head/Neck CTA 07/16/25 09:59 IMPRESSION: No acute main cerebral artery occlusion or embolus. Old occluded right P2 segment resulting in right GUIDANCE ADVISER territory old infarct. Calcified plaque representing 90% stenosis right ICA. Calcified plaque representing 50% stenosis, left ICA. No dissection. Atherosclerosis disease without dissection. Bilateral pleural effusions, large volume and likely pulmonary edema. This critical test result is communicated to: Emergency physician Dr. Srikanth Palma at 10:30 AM on July 16, 2025. Electronically signed by: Shine Melendez MD 07/16/2025 10:44 AM EST RP Chest X-Ray 07/16/25 10:08 IMPRESSION: Endotracheal tube 2 cm above keven. NG tube placement at the gastroduodenal junction. Pulmonary edema and bilateral pleural effusions, (right. Electronically signed by: Shine Melendez MD 07/16/2025 10:46 AM EST RP Assessment and Plan (1) Stroke: Status: Acute (2) Altered mental status: Qualifiers: Altered mental status type: unspecified Qualified Code(s): R41.82 - Altered mental status, unspecified Status: Acute (3) Seizure: Status: Acute (4) CHF (congestive heart failure): Qualifiers: Heart failure chronicity: acute Heart failure type: unspecified Qualified Code(s): I50.9 - Heart failure, unspecified Status: Acute (5) Acute respiratory failure: Qualifiers: Respiratory failure complication: hypoxia Qualified Code(s): J96.01 - Acute respiratory failure with hypoxia Status: Acute Plan Neuro: Acute encephalopathy possibly due to metabolic encephalopathy on top of underlying dementia CT head did not show any acute infarct, evidence of old infarction right posterior parietooccipital area, basal ganglia and lacunar in infarct in the left basal ganglia area. 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 On propofol for sedation, as needed fentanyl for analgesia Close neurological status monitoring in the ICU every hour Cardiac: NSTEMI: Troponins elevated to 100, BNP elevated to 12,000 EKG showing first-degree AV block, absence of R-wave in deep S wave in V2 V3 We will trend troponins We will get a formal echo Her last CT in March showed normal LV systolic function, moderate aortic stenosis Respiratory: Acute hypoxemic respiratory failure due to poor respiratory drive Currently on ventilator support On PRVC mode FiO2 40%, PEEP 5, TV 360, RR 20 Peak pressures and plateau pressures are under the curve Ventilator management bundle with head end elevation, aspiration precaution, chlorhexidine mouthwash, daily awakening trials, daily spontaneous breathing trials GI: We will start on tube feeds Renal: Acute kidney injury possibly secondary to ATN on top of underlying CKD versus cardiorenal Baseline creatinine around 1.5, creatinine today is 1.86 We will closely monitor I's and O's Avoid nephrotoxic medications Heme: Chronic anemia, closely monitor H&H, transfuse for hemoglobin less than 7 grams/deciliter Endocrine: Blood sugars under control Sliding scale insulin as needed Infectious disease: We will send pancultures No indication for antibiotics as of now Musculoskeletal: Decubitus ulcer prevention protocol Lines: Peripheral Prophylaxis: Heparin, famotidine Total critical care time spent is about 60 minutes on evaluating and admission of this critically ill patient with multiple organ failures to critical care unit. Patient has acute encephalopathy, acute respiratory failure on ventilator support, acute kidney injury on top of chronic kidney disease. Time spent is mainly on evaluation and admission of the patient to critical care unit, formulating critical care plan and management, ventilator management, sedation management, close hemodynamic monitoring at this time is excluding any procedural time.
--- OUTSIDE RECORDS SUMMARY | 2025-07-16 12:19 | XMS_ITS | Clinical Summary ---
Author Organization [facility] Address [address] [place] [address] Phone Care Team Providers Care Parts Cleaner Name Role Phone Unavailable Primary Care Provider [...]
[2025-07-16 15:49] LABS: ABG Refer to POC result
--- NOTE | 2025-07-16 16:00 | CA_ITS ---
Transthoracic Echocardiogram Patient (Last, First, Middle): Beatrice Brown M Gender: Female Date of : 1945 Age: 80 Procedure Date: 07/16/2025 Procedure Type: Transthoracic Echocardiogram Location: ICU Height: 167.64 cm Weight: 89.81 kg BSA: 1.99 m2 Heart Rate: bpm BP: 126 / 55 mmHg Auto Air Conditioning Apprentice: TO Referring MD: Jayjay Ordonez MD Electronic Imager: Martin Padilla MD Symptoms: elevated troponins Study Quality: Fair/Contrast ECG Rhythm: Sinus Conclusions: - 1. Mildly to moderately reduced LV ejection fraction 40-45% with regional wall motion abnormality suggestive of underlying coronary artery disease with increased filling pressures 2. Moderate aortic stenosis 3. No gross pericardial effusion Findings Procedure Information Contrast agent, definity, is being given per protocol without apparent complications. The study quality is limited by the presence of a ventilator. Left Ventricle Normal left ventricular cavity size. The left ventricular systolic function is mild to moderately decreased. Spectral Doppler is indicative of an impaired relaxation filling pattern. Elevated filling pressures. E/E prime ratio is >15, consistent with elevated filling pressures. Wall Motion Rest Echo Findings The mid inferior and basal anterolateral segments are hypokinetic. The basal inferior, basal inferoseptal, and basal inferolateral segments are akinetic. All other scored wall segments showed normal motion. Right Ventricle Normal right ventricular cavity size and systolic function. Atria The left atrium is moderately dilated. Interatrial shunt cannot be excluded. The right atrium is likely dilated. Aortic Valve The aortic valve was not well visualized. There is mild calcification of the aortic valve. There is moderate aortic valve stenosis. The peak aortic gradient is 32 mmHg.The mean gradient is 18 mmHg. The aortic valve area is 1.28 cm2. There is no aortic valve regurgitation. Mitral Valve There is mild anterior and posterior mitral leaflet thickening. There is mild mitral annular calcification. There is trace mitral valve regurgitation. There is no mitral valve stenosis. Pulmonic Valve The pulmonic valve is likely normal. Tricuspid Valve Likely normal tricuspid valve structure and function. Tricuspid regurgitation envelope is inadequate for calculation of right ventricular systolic pressure. Indeterminate right atrial pressure. Great Vessels The aorta was not well visualized. The pulmonary artery was not well visualized. Venous The inferior vena cava is moderately dilated. patient is on positive pressure ventilation and difficult to assess accurately right atrial pressures Pericardium/Pleural There is no evidence of pericardial effusion. Prior Study Comparison Changes noted compared to prior study dated: 03/10/2025. LV systolic function appears to be depressed with wall motion abnormalities Measurements 2D Linear Measurements LVOT Diam: 2.10 3.0+(-)1.3 cm 2D Systolic Function EF 4C: 34.20 >55% EF 2C: 46.40 >55% EF BiP: 40.50 >55% Mitral Valve MV Pk E: 0.73 MV PK A: 0.86 MV Decel Time: 180.00 E/A: 0.80 E'Lateral: 4.13 E'Medial: 3.59 E/E' Med: 20.30 E/E' Lat: 17.60 PHT: 53.00 MVA PHT: 4.15 Decel [place]: 4.06 Aortic Valve AoV Pk Peña: 2.84 AoV Mn Peña: 2.05 AoV VTI: 0.69 AoV Pk Grad: 32.00 Aov Mn Grad: 18.00 LUZ MARINA Cont.VTI: 1.28 LVOT LVOT Pk Peña: 0.99 LVOT Mn Peña: 0.71 LVOT VTI: 0.26 LVOT Pk Grad: 4.00 LVOT Mn Grad: 2.00 LVOT Diam: 2.10 LVOT Area: 3.46 Diastolic Function MV Pk E: 0.73 MV Pk A: 0.86 E/A: 0.80 E'Medial: 3.59 E/E' Med: 20.30 E' Laterial: 4.13 E/E' Lat: 17.60 Right Ventricle TAPSE (mm): 22.10 TVS' Peña: 11.90 Great Vessels Aorta Sinus of Valsalva: 2.67 2.0-3.5 cm Ao Asc: 3.00 2.1-3.4 cm Updated in Other Vendor System with Status of Final Martin Padilla MD electronically signed on 07/17/2025 8:48:48 AM with status of Final
[2025-07-16 16:16] LABS: Troponin-I High Sensitivity 112.8 ng/L (<3.5-17.0)
--- NOTE | 2025-07-16 17:40 | PC.NURSE ---
Pt. Arrived to ICU at approx. 1200- Pt. intubated and sedated per MAR. Moving all extremities weakly and in response to verbal stimuli, does not open eyes, track, or follow commands, pupils pinpoint. Sedated titrated per MAR. SR/SB w PVCs on tele, HR 40s-50s with intermittent non-sustained drops to the 30s- MD aware, no new order at this time. Bedside TTE performed, results pending. MAPs >65, SBPs 130s-150s- IVF stopped per MD. Pt. tolerating ACVC vent settings- see vent assessment for details. OGT in place, clamped. Pt. incontinent of stool x1 this shift. Schmitz in place draining cloudy yellow urine. Q2 oral care and repositioning performed, HCP at bedside, updated. Plan of care ongoing.
[2025-07-16 21:54] LABS: Alanine Aminotransferase < 6 U/L (0-31); Albumin Level 2.7 g/dL (3.5-5.0); Alkaline Phosphatase 79 U/L (39-117); Anion Gap 14 (12-20); Aspartate Amino Transferase 15 U/L (5-31); Blood Urea Nitrogen 40 mg/dL (9-16); Calcium 8.2 mg/dL (8.4-10.2); Carbon Dioxide 15 mmol/L (22-29); Chloride 116 mmol/L (96-108); Creatinine Clr Calc Pharmacy 24.1; Estimated Glomerular Filt Rate 23; Potassium 4.2 mmol/L (3.3-5.1); Sodium 141 mmol/L (135-145); Total Protein 5.3 g/dL (6.5-8.0)
[2025-07-16 22:00] LABS: Troponin-I High Sensitivity 106.9 ng/L (<3.5-17.0)
[2025-07-16 23:53] LABS: Troponin-I High Sensitivity 110.8 ng/L (<3.5-17.0)
[2025-07-17] VITALS (35 sets, daily range): BP systolic 127–202; BP diastolic 48–90; PULSE 47–71; RESP 13–20; TEMP 34.9–36.9; O2SAT 91–100; BMI 31.0
[2025-07-17 04:58] LABS: VBG HCO3 15 mmol/L (22-26); VBG O2 % Saturation 99.0 %
[2025-07-17 05:10] LABS: MANUAL DIFF FLAG NO
[2025-07-17 05:11] LABS: Hematocrit 28.5 % (37.0-47.0); Hemoglobin 9.5 g/dl (12.0-16.0); Imm Gran Abs Auto 0.02 X10*3/uL (0.00-0.03); Imm Gran Pct Auto 0.3 % (0.0-0.4); Lymphocytes Absolute Auto 1.4 X10*3/uL (1.2-4.9); Mean Corpuscular HGB Conc 33.3 g/dl (31.0-35.0); Mean Corpuscular Hemoglobin 27.8 pg (27.0-33.0); Mean Corpuscular Volume 83.3 fL (80.0-98.0); NRBC Abs Auto 0.000 X10*3/uL (0.0-0.012); NRBC Pct Auto 0.0 /100WBC (0.0-0.2); Platelet Count 200 X10*3/uL (160-400); Red Blood Count 3.42 X10*6/uL (4.20-5.50); White Blood Count 7.2 X10*3/uL (4.8-10.8)
[2025-07-17 05:17] LABS: Venous Blood Gas Refer to POC result
[2025-07-17 05:24] LABS: Anion Gap 14 (12-20); Blood Urea Nitrogen 38 mg/dL (9-16); Calcium 8.3 mg/dL (8.4-10.2); Carbon Dioxide 16 mmol/L (22-29); Chloride 116 mmol/L (96-108); Creatinine Clr Calc Pharmacy 23.3; Estimated Glomerular Filt Rate 23; Magnesium 2.1 mg/dL (1.6-2.6); Potassium 4.0 mmol/L (3.3-5.1); Sodium 142 mmol/L (135-145)
[2025-07-17 07:05] LABS: Troponin-I High Sensitivity 111.5 ng/L (<3.5-17.0)
[2025-07-17] MEDS: Chlorhexidine Gluc Oral Rinse 15 ML MOUTHWASH BUCCAL (08:17)
--- NOTE | 2025-07-17 08:41 | P.PNCC_ITS ---
Subjective Subjective Date of Service: 07/17/25 Interval History: No new Events Continues to be on ventilator support On propofol and fentanyl for sedation and analgesia Troponin trend flat Critical Care Time (minutes): 35 Physical Exam 2 Vital Signs: Vital Signs: Last Vital Signs Temp 97.3 F 07/17/25 08:00 Pulse 55 07/17/25 08:00 Resp 18 07/17/25 08:00 BP 163/69 H 07/17/25 08:00 Pulse Ox 97 07/17/25 08:00 O2 Del Method Mechanical Ventil ation 07/17/25 08:00 FiO2 25 07/17/25 08:00 BMI result Body Mass Index 31.0 General: Elderly lady acute distress, chronically ill appearing and tired appearing Nutritional Appearance: well nourished and overweight Eyes: appearance normal, both eyes and all related structures; Alignment and Position: alignment normal and position normal Neck: No lymphadenopathy, no thyromegaly Resp: bilateral air entry equal, occasional added sounds present Cardio: Regular rate, regular rhythm; Heart sounds: S1 normal heart sound present and S2 normal heart sound present GI: soft, nontender, no guarding, no hepatosplenomegaly : bladder normal to inspection, bladder normal to palpation, no renal angle tenderness Skin: no rashes or lesions noted and elasticity normal Neuro: Sedated, can not do a neuro exam Objective Data Labs 07/17/25 04:43 07/17/25 04:43 Labs: Laboratory Results - last 24 hr 07/16/25 07/16/25 07/16/25 09:08 09:17 10:36 WBC 7.1 RBC 3.58 L Hgb 9.9 L Hct 30.4 L MCV 84.9 MCH 27.7 MCHC 32.6 RDW 15.1 Plt Count 208 MPV 10.9 Immature Gran % (Auto) 0.6 H Neut % (Auto) 81.4 H Lymph % (Auto) 10.2 L Stan[place] % (Auto) 3.6 Eos % (Auto) 3.8 Baso % (Auto) 0.4 Lymph # (Auto) 0.7 L Stan[place] # (Auto) 0.3 Eos # (Auto) 0.3 Baso # (Auto) 0.0 Abs Immat Gran (auto) 0.04 H Absolute Neuts (auto) 5.8 Absolute Nucleated RBC 0.000 Nucleated RBC % (auto) 0.0 PT 12.0 Whole Blood PT 13.5 INR 1.0 Whole Blood INR 1.1 APTT 29.8 O2 Saturation ABG pH at Pt Temp ABG pCO2 at Pt Temp ABG pO2 at Pt Temp ABG HCO3 ABG Base Excess (Actual) VBG pH VBG pCO2 VBG pO2 VBG HCO3 VBG O2 Saturation VBG Base Excess Sodium 138 Potassium 4.4 Chloride 116 H Carbon Dioxide 14 L Anion Gap 12 BUN 39 H Creatinine 1.86 H Estim Creat Clear Calc 26.8 Estimated GFR 26 POC Glucose 119 H Random Glucose 155 H Lactic Acid 1.1 Calcium 8.3 L Phosphorus Magnesium Total Bilirubin 0.3 AST 17 ALT < 6 Alkaline Phosphatase 93 Troponin I High Sens 103.3 H* D NT-Pro-B Natriuret Pep 19375.8 H Total Protein 5.9 L Albumin 3.1 L TSH Urine Color Urine Appearance Urine pH Ur Specific [place] Urine Protein Urine Glucose (UA) Urine Ketones Urine Blood Urine Nitrite Ur Leukocyte Esterase Urine RBC Urine WBC Ur Squamous Epith Cells Urine Bacteria Hyaline Casts 07/16/25 07/16/25 07/16/25 10:46 10:49 10:51 WBC RBC Hgb Hct MCV MCH MCHC RDW Plt Count MPV Immature Gran % (Auto) Neut % (Auto) Lymph % (Auto) [place] % (Auto) Eos % (Auto) Baso % (Auto) Lymph # (Auto) [place] # (Auto) Eos # (Auto) Baso # (Auto) Abs Immat Gran (auto) Absolute Neuts (auto) Absolute Nucleated RBC Nucleated RBC % (auto) PT Whole Blood PT INR Whole Blood INR APTT O2 Saturation 98.0 ABG pH at Pt Temp 7.30 L ABG pCO2 at Pt Temp 29 L ABG pO2 at Pt Temp 92 ABG HCO3 14 L ABG Base Excess (Actual) -10.2 VBG pH 7.39 VBG pCO2 23 VBG pO2 304 VBG HCO3 14 L VBG O2 Saturation 100.0 VBG Base Excess -8.8 Sodium Potassium Chloride Carbon Dioxide Anion Gap BUN Creatinine Estim Creat Clear Calc Estimated GFR POC Glucose Random Glucose Lactic Acid Calcium Phosphorus Magnesium Total Bilirubin AST ALT Alkaline Phosphatase Troponin I High Sens NT-Pro-B Natriuret Pep Total Protein Albumin TSH Urine Color Yellow Urine Appearance Cloudy Urine pH 5.5 Ur Specific [place] 1.015 Urine Protein 300 (3+) H Urine Glucose (UA) Negative Urine Ketones Negative Urine Blood Small (1+) H Urine Nitrite Negative Ur Leukocyte Esterase Moderate (2+) H Urine RBC 0-2 Urine WBC >50 H Ur Squamous Epith Cells >20 Urine Bacteria 4+ Hyaline Casts 0-2 07/16/25 07/16/25 07/16/25 11:51 15:37 21:25 WBC RBC Hgb Hct MCV MCH MCHC RDW Plt Count MPV Immature Gran % (Auto) Neut % (Auto) Lymph % (Auto) [place] % (Auto) Eos % (Auto) Baso % (Auto) Lymph # (Auto) [place] # (Auto) Eos # (Auto) Baso # (Auto) Abs Immat Gran (auto) Absolute Neuts (auto) Absolute Nucleated RBC Nucleated RBC % (auto) PT Whole Blood PT INR Whole Blood INR APTT O2 Saturation ABG pH at Pt Temp ABG pCO2 at Pt Temp ABG pO2 at Pt Temp ABG HCO3 ABG Base Excess (Actual) VBG pH VBG pCO2 VBG pO2 VBG HCO3 VBG O2 Saturation VBG Base Excess Sodium 141 Potassium 4.2 Chloride 116 H Carbon Dioxide 15 L Anion Gap 14 BUN 40 H Creatinine 2.07 H Estim Creat Clear Calc 24.1 Estimated GFR 23 POC Glucose Random Glucose 81 Lactic Acid Calcium 8.2 L Phosphorus 4.2 Magnesium Total Bilirubin 0.2 AST 15 ALT < 6 Alkaline Phosphatase 79 Troponin I High Sens 112.8 H* 106.9 H* NT-Pro-B Natriuret Pep Total Protein 5.3 L Albumin 2.7 L TSH 1.89 Urine Color Urine Appearance Urine pH Ur Specific [place] Urine Protein Urine Glucose (UA) Urine Ketones Urine Blood Urine Nitrite Ur Leukocyte Esterase Urine RBC Urine WBC Ur Squamous Epith Cells Urine Bacteria Hyaline Casts 07/16/25 07/17/25 07/17/25 23:17 04:43 04:52 WBC 7.2 RBC 3.42 L Hgb 9.5 L Hct 28.5 L MCV 83.3 MCH 27.8 MCHC 33.3 RDW 15.0 Plt Count 200 MPV 10.3 Immature Gran % (Auto) 0.3 Neut % (Auto) 66.0 Lymph % (Auto) 19.3 L Stan[place] % (Auto) 9.0 Eos % (Auto) 5.0 H Baso % (Auto) 0.4 Lymph # (Auto) 1.4 Stan[place] # (Auto) 0.7 Eos # (Auto) 0.4 Baso # (Auto) 0.0 Abs Immat Gran (auto) 0.02 Absolute Neuts (auto) 4.8 Absolute Nucleated RBC 0.000 Nucleated RBC % (auto) 0.0 PT Whole Blood PT INR Whole Blood INR APTT O2 Saturation ABG pH at Pt Temp ABG pCO2 at Pt Temp ABG pO2 at Pt Temp ABG HCO3 ABG Base Excess (Actual) VBG pH 7.42 VBG pCO2 23 VBG pO2 91 VBG HCO3 15 L VBG O2 Saturation 99.0 VBG Base Excess -7.4 Sodium 142 Potassium 4.0 Chloride 116 H Carbon Dioxide 16 L Anion Gap 14 BUN 38 H Creatinine 2.10 H Estim Creat Clear Calc 23.3 Estimated GFR 23 POC Glucose Random Glucose 81 Lactic Acid Calcium 8.3 L Phosphorus Magnesium 2.1 Total Bilirubin AST ALT Alkaline Phosphatase Troponin I High Sens 110.8 H* 111.5 H* NT-Pro-B Natriuret Pep Total Protein Albumin TSH Urine Color Urine Appearance Urine pH Ur Specific [place] Urine Protein Urine Glucose (UA) Urine Ketones Urine Blood Urine Nitrite Ur Leukocyte Esterase Urine RBC Urine WBC Ur Squamous Epith Cells Urine Bacteria Hyaline Casts Progress Note: A&P Assessment and plan (1) CHF (congestive heart failure): Status: Acute (2) Acute respiratory failure: Status: Acute (3) Acute kidney injury superimposed on chronic kidney disease: Status: Acute (4) Stroke: Status: Acute Plan Neuro: Acute encephalopathy possibly due to metabolic encephalopathy on top of underlying dementia and history of multiple strokes in the past CT head did not show any acute infarct, evidence of old infarction right posterior parietooccipital area, basal ganglia and lacunar in infarct in the left basal ganglia area. 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 She had an episode of seizure in the ED while getting CT, will continue Keppra On propofol for sedation, as needed fentanyl for analgesia; we will wean the sedation and analgesia for pressor support trials Continue aspirin and statin for history of strokes Close neurological status monitoring in the ICU every hour Cardiac: NSTEMI: EKG showing first-degree AV block, absence of R-wave in deep S wave in V2 V3 Troponin trend flat, BNP [id number], will start on lasix BID TTE pending Her last CT in March showed normal LV systolic function, moderate aortic stenosis Respiratory: Acute hypoxemic respiratory failure due to poor respiratory drive Currently on ventilator support On PRVC mode FiO2 40%, PEEP 5, TV 360, RR 20, we will place the patient on pressor support if she does well we will get the weaning trials Peak pressures and plateau pressures are under the curve Ventilator management bundle with head end elevation, aspiration precaution, chlorhexidine mouthwash, daily awakening trials, daily spontaneous breathing trials GI: We will start on tube feeds Renal: Acute kidney injury possibly secondary to ATN on top of underlying CKD versus cardiorenal Baseline creatinine around 1.5, creatinine today is 2.1 possibly due to diuresis We will closely monitor I's and O's Avoid nephrotoxic medications Heme: Chronic anemia, closely monitor H&H, transfuse for hemoglobin less than 7 grams/deciliter Endocrine: Blood sugars under control Hypothyroidism: On levothyroxine supplement Infectious disease: Possibly has a urinary tract infection, urine cultures pending On ceftriaxone Musculoskeletal: Decubitus ulcer prevention protocol Lines: Peripheral Prophylaxis: Heparin, famotidine Quality Stroke Does the patient have a stroke diagnosis?: No VTE Prior VTE?: No VTE Risk Level:: Medical - moderate - high VTE Device Contraindication: N/A - Device Ordered VTE Drug Contraindication: N/A - Med Ordered
--- NOTE | 2025-07-17 09:47 | ECG_ITS ---
Test Reason : Bradycardia Blood Pressure : */* mmHG Vent. Rate : 43 BPM Atrial Rate : 43 BPM P-R Int : 302 ms QRS Dur : 120 ms QT Int : 536 ms P-R-T Axes : 101 10 4 degrees QTcB Int : 452 ms Marked sinus bradycardia with marked sinus arrhythmia with 1st degree A-V block Non-specific intra-ventricular conduction delay Minimal voltage criteria for LVH, may be normal variant ( Lisandro product ) Nonspecific ST abnormality Abnormal ECG When compared with ECG of 16-Jul-2025 09:37, Vent. rate has decreased by 47 bpm T wave inversion no longer evident in Lateral leads Referred By: Jayjay Ordonez Electronically Signed By: CONSTANTINO AVILA MD
--- NOTE | 2025-07-17 10:04 | MHC.CLN ---
PT MAY REQUIRE TUBE FEEDING FOR NUTRITION SUPPORT R/T PROLONGED NPO STATUS PT IS INTUBATED AND SEDATED DISCUSSED AT ROUNDS WITH MD PLAN FOR POSSIBLE EXTUBATION CURRENTLY NPO IF TF NEEDED; RECOMMEND GLUCERNA 1.2 AT MAX GOAL RATE 35 ML/HR WITH 30ML PROSOURCE BID AND 240ML FREE WATER Q 6 HRS TO PROVIDE 1128KCALS (1729 TOTAL KCALS WITH SEDATION; 25KCALS/KG), 80G PROTEIN (1.2G/KG), 1636ML TOTAL WATER FROM FORMULA AND FLUSHES (24ML/KG) MONITOR TOLERANCE AND LYTES FOLLOWING FOR DIET ADVANCEMENT SEE FULL ASSESSMENT
[2025-07-17] MEDS: Furosemide 40 MG/4 ML VIAL IVPUSH ×2 (10:28→22:06)
--- NOTE | 2025-07-17 10:34 | MHC.CM.PN ---
Pt remains intubated in ICU with plans for sedation vacation today. Pt is a LTC resident of [facility] and will return when medically stable. Pt's son is the HCP and chose to intubate and allow for full code measures ( pt has a MOLST specifying DNR/DNI) SNF updated on plan. BLS to transport when pt is ready
[2025-07-17] MEDS: levETIRAcetam in NaCl (iso-os) 500 MG/100 ML PIGGYBACK 400 MG IV ×2 (10:35→22:13)
--- NOTE | 2025-07-17 14:39 | ECG_ITS ---
Test Reason : Bradycardia Blood Pressure : */* mmHG Vent. Rate : 41 BPM Atrial Rate : 63 BPM P-R Int : * ms QRS Dur : 120 ms QT Int : 524 ms P-R-T Axes : * -1 5 degrees QTcB Int : 432 ms Sinus rhythm with 2nd degree A-V block (Mobitz I) Left ventricular hypertrophy with QRS widening and repolarization abnormality ( Lisandro product ) Abnormal ECG When compared with ECG of 17-Jul-2025 09:47, Sinus rhythm is now with 2nd degree A-V block (Mobitz I) Nonspecific T wave abnormality, worse in Lateral leads Referred By: Jayjay Ordonez Electronically Signed By: CONSTANTINO AVILA MD
--- NOTE | 2025-07-17 17:31 | PM.CNCAR ---
History of Present Illness History of Present Illness Date of Service: 07/17/25 Requesting physician: Jayjay Ordonez Consult reason: other (Bradycardia) Chief complaint: Altered mentation Narrative: I was consulted to see Beatrice in cardiology consultation today for persistent bradycardia related to Mobitz type 1 second-degree AV block. Patient has intermittent episodes of 2 is to 1 av block preceded by Mobitz type 1 second-degree AV block. Patient has no obvious symptoms or hemodynamic compromise related to it. Initially this happened while patient was intubated and was felt that this was probably related to sedation. Patient was then extubated and off sedation and has remained persistently bradycardic with Mobitz type 1 second-degree AV block. History is not obtainable from the patient due to dementia. Patient has not had any syncopal episode while in bed. No shortness of breath. No reported chest pain. Patient admitted with altered mental status and hypo natremia. Also noted to have mildly elevated troponins. Echocardiogram done showed reduced LV ejection fraction with regional wall motion abnormalities consistent with underlying coronary artery disease. She had also has calcific moderate aortic stenosis. Review of Systems Review of Systems: Yes Unobtainable due to mental status Neurologic: Reports confusion Psychiatric: Psychiatric: Reports confusion PMFSH Past Medical History Medical History Diabetes mellitus Depression Hypertension Hypothyroid Stroke Social History Social History Household Members: Other Housing: [facility] Do you presently have visiting nurse or other home services: No Comment: bilateral wrist restraints..propofol drip Patient Tobacco Use Status: Never used Tobacco Currently Displaying Signs/Symptoms of Drug Intoxication Withdrawal: No Advance Directives: Yes Advance Directives on File: Yes Advance Directives Date on File: 03/09/25 Nutrition Risks: Dental problems Patient : No service: No Meds Allergies Allergy/AdvReac Type Severity Reaction Status Date / Time No Known Allergies Allergy Verified 07/16/25 10:14 Active Medications: Current Medications Acetaminophen (Acetaminophen 325 Mg Tablet) 650 mg PO Q6H PRN PRN Reason: Fever >100.4 Aspirin (Aspirin 81 Mg Tab.Chew) 81 mg PO DAILY ZAIN Last Admin: 07/17/25 10:28 Dose: 81 mg Atorvastatin Calcium (Atorvastatin Calcium 10 Mg Tablet) 10 mg PO BEDTIME ZAIN Last Admin: 07/16/25 21:41 Dose: 10 mg Famotidine (Famotidine/Pf 20 Mg/2 Ml Vial) 20 mg IVPUSH BID [facility] Last Admin: 07/17/25 08:17 Dose: 20 mg Furosemide (Furosemide 40 Mg/4 Ml Vial) 40 mg IVPUSH Q12H [facility]; Protocol Last Admin: 07/17/25 10:28 Dose: 40 mg Heparin Sodium (Porcine) (Heparin Sodium,Porcine 5,000 Unit/Ml Vial) 5,000 unit SUBCUT Q8H [facility] Last Admin: 07/17/25 10:32 Dose: 5,000 unit Hydromorphone HCl (Hydromorphone Hcl 0.5 Mg/0.5 Ml Syringe) 0.25 mg IVPUSH Q4H PRN; Protocol PRN Reason: Anxiety Last Admin: 07/17/25 16:24 Dose: 0.25 mg Ceftriaxone Sodium 2 gm/ (Sodium Chloride) 50 mls @ 100 mls/hr IV Q24H [facility] Last Infusion: 07/17/25 16:15 Dose: Infused Levetiracetam (Keppra) 500 mg in 100 mls @ 400 mls/hr IV Q12H [facility] Last Infusion: 07/17/25 11:00 Dose: Infused Labetalol HCl (Labetalol Hcl 100 Mg/20 Ml Vial) 20 mg IVPUSH Q10M PRN PRN Reason: SBP > 160 Last Admin: 07/17/25 11:11 Dose: 20 mg Levothyroxine Sodium (Levothyroxine Sodium 125 Mcg Tablet) 125 mcg PO DAILY@0600 [facility] Last Admin: 07/17/25 05:54 Dose: 125 mcg Ondansetron HCl (Ondansetron Hcl 4 Mg/2 Ml Vial) 4 mg IVPUSH Q8H PRN PRN Reason: Nausea and Vomiting Sertraline HCl (Sertraline Hcl 25 Mg Tablet) 37.5 mg PO DAILY [facility] Last Admin: 07/17/25 08:17 Dose: 37.5 mg Home Medications ?Medication ?Instructions ?Recorded ?Confirmed ?Last Taken ?Type acetaminophen 325 mg tablet 650 mg PO Q6H PRN Fever Or Pain 03/09/25 07/16/25 Unknown History aluminum-mag hydroxide-simethicone 15 ml PO Q6H PRN Indigestion 03/09/25 07/16/25 Unknown History 400 mg-400 mg-40 mg/5 mL oral susp (Mylanta Maximum Strength) amlodipine 10 mg tablet 10 mg PO DAILY 03/09/25 07/16/25 Unknown History bisacodyl 10 mg rectal suppository 10 mg NV DAILY PRN Constipation 03/09/25 07/16/25 Unknown History cholecalciferol (vitamin D3) 25 25 mcg PO DAILY 03/09/25 07/16/25 Unknown History mcg (1,000 unit) tablet (Vitamin D3) cyanocobalamin (vitamin B-12) 1,000 mcg PO DAILY 03/09/25 07/16/25 Unknown History 1,000 mcg tablet (Vitamin B-12) irbesartan 300 mg tablet 300 mg PO DAILY 03/09/25 07/16/25 Unknown History magnesium hydroxide 400 mg/5 mL 30 ml PO DAILY PRN Constipation 03/09/25 07/16/25 Unknown History oral suspension (Milk of Magnesia) melatonin 3 mg tablet 3 mg PO BEDTIME 03/09/25 07/16/25 Unknown History menthol 5 % topical patch (Icy Hot 1 patch topical DAILY 03/09/25 07/16/25 Unknown History (menthol)) polyethylene glycol 3350 17 17 g PO DAILY PRN Constipation 03/09/25 07/16/25 Unknown History gram/dose oral powder (Miralax) sertraline 25 mg tablet 37.5 mg PO DAILY 03/09/25 07/16/25 Unknown History simvastatin 10 mg tablet 10 mg PO BEDTIME 03/09/25 07/16/25 Unknown History sodium phosphates 19 gram-7 118 ml NV DAILY PRN Constipation 03/09/25 07/16/25 Unknown History gram/118 mL enema (Fleet Enema) trazodone 50 mg tablet 25 mg PO BEDTIME 03/09/25 07/16/25 Unknown History carvedilol 3.125 mg tablet (Coreg) 3.125 mg PO BID 04/14/25 07/16/25 Unknown History nystatin 100,000 unit/gram topical 1 appl topical BID 04/14/25 07/16/25 Unknown History powder (Nyamyc) levothyroxine 125 mcg tablet 125 mcg PO DAILY 07/16/25 07/16/25 Unknown History Physical Exam Vital Signs: Vital Signs: Last Vital Signs Temp 98.1 F 11/14/25 17:00 Pulse 52 07/17/25 17:00 Resp 19 07/17/25 17:00 BP 152/53 H 07/17/25 17:00 Pulse Ox 91 L 07/17/25 17:00 O2 Del Method Room Air 07/17/25 17:00 FiO2 25 07/17/25 11:35 BMI result Body Mass Index 31.0 Const: General: cooperative, comfortable, alert, awake and confusion Orientation/consciousness: confusion HEENT: Head: Yes normocephalic and Yes atraumatic Neck: Neck: Yes trachea midline, Yes supple and Yes no JVD Resp: Effort & Inspection: normal respiratory effort Auscultation: clear to auscultation bilaterally Cardio: Rate: bradycardic Rhythm: abnormal rhythm regularly irregular Heart sounds: S1 normal heart sound present, S2 normal heart sound present, no click, no gallops and Murmur heart sound present systolic Skin: General skin exam: no rashes or lesions noted Neuro: General: moves all extremities and confusion Extrem: General: Yes no clubbing, cyanosis or edema Objective Labs and Meds 07/17/25 04:43 07/17/25 04:43 Lab results: Laboratory Results - last 24 hr 07/16/25 07/16/25 07/17/25 21:25 23:17 04:43 WBC 7.2 RBC 3.42 L Hgb 9.5 L Hct 28.5 L MCV 83.3 MCH 27.8 MCHC 33.3 RDW 15.0 Plt Count 200 MPV 10.3 Immature Gran % (Auto) 0.3 Neut % (Auto) 66.0 Lymph % (Auto) 19.3 L [place] % (Auto) 9.0 Eos % (Auto) 5.0 H Baso % (Auto) 0.4 Lymph # (Auto) 1.4 [place] # (Auto) 0.7 Eos # (Auto) 0.4 Baso # (Auto) 0.0 Abs Immat Gran (auto) 0.02 Absolute Neuts (auto) 4.8 Absolute Nucleated RBC 0.000 Nucleated RBC % (auto) 0.0 VBG pH VBG pCO2 VBG pO2 VBG HCO3 VBG O2 Saturation VBG Base Excess Sodium 141 142 Potassium 4.2 4.0 Chloride 116 H 116 H Carbon Dioxide 15 L 16 L Anion Gap 14 14 BUN 40 H 38 H Creatinine 2.07 H 2.10 H Estim Creat Clear Calc 24.1 23.3 Estimated GFR 23 23 Random Glucose 81 81 Calcium 8.2 L 8.3 L Magnesium 2.1 Total Bilirubin 0.2 AST 15 ALT < 6 Alkaline Phosphatase 79 Troponin I High Sens 106.9 H* 110.8 H* 111.5 H* Total Protein 5.3 L Albumin 2.7 L TSH 1.89 07/17/25 04:52 WBC RBC Hgb Hct MCV MCH MCHC RDW Plt Count MPV Immature Gran % (Auto) Neut % (Auto) Lymph % (Auto) [place] % (Auto) Eos % (Auto) Baso % (Auto) Lymph # (Auto) [place] # (Auto) Eos # (Auto) Baso # (Auto) Abs Immat Gran (auto) Absolute Neuts (auto) Absolute Nucleated RBC Nucleated RBC % (auto) VBG pH 7.42 VBG pCO2 23 VBG pO2 91 VBG HCO3 15 L VBG O2 Saturation 99.0 VBG Base Excess -7.4 Sodium Potassium Chloride Carbon Dioxide Anion Gap BUN Creatinine Estim Creat Clear Calc Estimated GFR Random Glucose Calcium Magnesium Total Bilirubin AST ALT Alkaline Phosphatase Troponin I High Sens Total Protein Albumin TSH Assessment and Plan (1) Mobitz type 1 second degree atrioventricular block: Status: Acute Noted Mobitz type 1 second-degree AV block without any obvious symptoms or hemodynamic compromise. Mobitz type 1 second-degree AV block he is usually at the AV isabela level. 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 However there was no obvious advanced AV block noted. He had no underlying bundle-branch block noted. This is a benign second-degree AV block and usually does not require pacing therapy. I would avoid all rate lowering medications in his case. She was given labetalol in the morning would avoid anything that affect AV conduction in the future. Blood pressure medication such as vasodilators can be used. Will sign of the case. Thank you for allowing me to partake in her care Procedures Date of Service Date of Service: 07/17/25
--- NOTE | 2025-07-17 17:35 | PC.NURSE ---
Assumed care at 0700- pt. intubated and sedated. Sedation vacation initiated at 0930. Pt. SBPs up to 200s- PRN labetelol givenx2 with some effect. Pt. extubated to RA at 1130. Pt. A&O to self only, pleasantly confused, sleeping in naps but arouses to name. Sbrady on tele HR 40s-50s. After extubation, HR as low as 20s-30s at times, pt. remains awake and with stable BP during these episodes, MD aware- EKG obtained, see report. Cardiology consulted. SBP 150s-180s, PRN dilaudid given x1 per MD. Schmitz remains in place draining cyu. Patient repositioned and oral care provided Q2. HCP updated. Plan of care ongoing.
[2025-07-18] VITALS (17 sets, daily range): BP systolic 104–191; BP diastolic 42–82; PULSE 50–77; RESP 11–22; TEMP 36.3–37.3; O2SAT 92–95; BMI 28.8
--- NOTE | 2025-07-18 | EEG_ITS ---
Reason for Exam: Altered mental status, question seizure Roomed Performed: [id number] History: 80 years old woman admitted in hospital with probably underlying diagnosis of dementia and encephalopathy. pt is altered to place and time- H/O diabetes, depression, htn, hypothyroid, stroke- CT of brain 07/28 No acute intracranial findings. Old right posterior parietal-occipital and right basal ganglia and left external capsule lacunar infarcts unchanged. No acute infarct or hemorrhage. Medication: Acetaminophen, Amlodipine Besylate. asa, atorvastatin calcium, bisacodyl, cyanocobalamin, famotidine, furosemide, porcine, hydralazine, ceftriaxone sodium, keppra, levothyroxine, magnesium, nystatin, sertraline, Vit D Technical description: Photic stimulation: completed Hyperventilation: omitted Behavioral state: cooperative but altered to place and date State of Consciousness: awake Skull defect: no Sedation:no Handedness: Right Duration of study: 32 min 23 sec Description: This is a 16 channel EEG with an EKG lead. Patient is reported awake during the tracing. Background EEG rhythm is frequently contaminated by lead and muscle artifacts. It is also somewhat asymmetric with frequent theta range slowing noted in right hemispheric leads compared to the left. No definite sharp waves or spikes were noted. Photic stimulation did not produce any significant driving and hyperventilation was not performed. Cardiac lead did not reveal any significant abnormality. Impression: Abnormal EEG suggestive of right hemispheric dysfunction that may come from an underlying structural lesion such as a stroke. No epileptic discharges noted. MTDD
[2025-07-18 04:42] LABS: VBG HCO3 16 mmol/L (22-26); VBG O2 % Saturation 93.0 %
[2025-07-18 05:02] LABS: MANUAL DIFF FLAG NO
[2025-07-18 05:04] LABS: Hematocrit 31.6 % (37.0-47.0); Hemoglobin 10.3 g/dl (12.0-16.0); Imm Gran Abs Auto 0.03 X10*3/uL (0.00-0.03); Imm Gran Pct Auto 0.4 % (0.0-0.4); Lymphocytes Absolute Auto 1.6 X10*3/uL (1.2-4.9); Mean Corpuscular HGB Conc 32.6 g/dl (31.0-35.0); Mean Corpuscular Hemoglobin 27.5 pg (27.0-33.0); Mean Corpuscular Volume 84.5 fL (80.0-98.0); NRBC Abs Auto 0.000 X10*3/uL (0.0-0.012); NRBC Pct Auto 0.0 /100WBC (0.0-0.2); Platelet Count 217 X10*3/uL (160-400); Red Blood Count 3.74 X10*6/uL (4.20-5.50); White Blood Count 8.2 X10*3/uL (4.8-10.8)
[2025-07-18 05:06] LABS: Venous Blood Gas Refer to POC result
[2025-07-18 05:23] LABS: Alanine Aminotransferase < 6 U/L (0-31); Albumin Level 3.2 g/dL (3.5-5.0); Alkaline Phosphatase 104 U/L (39-117); Anion Gap 15 (12-20); Aspartate Amino Transferase 17 U/L (5-31); Blood Urea Nitrogen 35 mg/dL (9-16); Calcium 8.5 mg/dL (8.4-10.2); Carbon Dioxide 17 mmol/L (22-29); Chloride 115 mmol/L (96-108); Creatinine Clr Calc Pharmacy 22.3; Estimated Glomerular Filt Rate 21; Magnesium 2.1 mg/dL (1.6-2.6); Potassium 3.7 mmol/L (3.3-5.1); Sodium 143 mmol/L (135-145); Total Protein 6.2 g/dL (6.5-8.0)
[2025-07-18] MEDS: levETIRAcetam in NaCl (iso-os) 500 MG/100 ML PIGGYBACK 400 MG IV ×2 (11:54→22:13)
[2025-07-18] MEDS: Furosemide 40 MG/4 ML VIAL IVPUSH (11:54)
--- NOTE | 2025-07-18 12:01 | P.PNCC_ITS ---
Subjective Subjective Date of Service: 07/18/25 Interval History: Comfortable, happily confused Critical Care Time (minutes): 35 Physical Exam 2 Vital Signs: Vital Signs: Last Vital Signs Temp 98.6 F 07/18/25 11:00 Pulse 67 07/18/25 11:00 Resp 22 H 07/18/25 11:00 BP 168/67 H 07/18/25 11:00 Pulse Ox 94 07/18/25 11:00 O2 Del Method Room Air 07/18/25 11:00 O2 Flow Rate 1 07/18/25 06:00 FiO2 25 07/17/25 11:35 BMI result Body Mass Index 28.8 General: not in any acute distress, ill appearing Nutritional Appearance: well nourished and normal weight Eyes: appearance normal, both eyes and all related structures; Alignment and Position: alignment normal and position normal Neck: No lymphadenopathy, no thyromegaly Resp: bilateral air entry equal, no added sounds present Cardio: Regular rate, regular rhythm; Heart sounds: S1 normal heart sound present and S2 normal heart sound present GI: soft, nontender, no guarding, no hepatosplenomegaly : bladder normal to inspection, bladder normal to palpation, no renal angle tenderness Skin: no rashes or lesions noted and elasticity normal Neuro: alert, confused, moves all extremities Objective Data Labs 07/18/25 04:34 07/18/25 04:34 Labs: Laboratory Results - last 24 hr 07/18/25 07/18/25 04:34 04:38 WBC 8.2 RBC 3.74 L Hgb 10.3 L Hct 31.6 L MCV 84.5 MCH 27.5 MCHC 32.6 RDW 15.3 Plt Count 217 MPV 10.7 Immature Gran % (Auto) 0.4 Neut % (Auto) 66.0 Lymph % (Auto) 19.0 L [place] % (Auto) 7.6 Eos % (Auto) 6.3 H Baso % (Auto) 0.7 Lymph # (Auto) 1.6 [place] # (Auto) 0.6 Eos # (Auto) 0.5 H Baso # (Auto) 0.1 Abs Immat Gran (auto) 0.03 Absolute Neuts (auto) 5.4 Absolute Nucleated RBC 0.000 Nucleated RBC % (auto) 0.0 VBG pH 7.36 VBG pCO2 29 VBG pO2 65 VBG HCO3 16 L VBG O2 Saturation 93.0 VBG Base Excess -7.3 Sodium 143 Potassium 3.7 Chloride 115 H Carbon Dioxide 17 L Anion Gap 15 BUN 35 H Creatinine 2.20 H Estim Creat Clear Calc 22.3 Estimated GFR 21 Random Glucose 80 Calcium 8.5 Phosphorus 5.9 H Magnesium 2.1 Total Bilirubin 0.2 AST 17 ALT < 6 Alkaline Phosphatase 104 Total Protein 6.2 L Albumin 3.2 L Microbiology Microbiology Results: Microbiology 07/16/25 Unknown Urine Catheterized - Straight Catheter Urine Culture - Final 07/16/25 10:45 Blood - Venous Blood Culture - Preliminary No growth after 24 hours. 07/16/25 10:36 Blood - Venous Blood Culture - Preliminary No growth after 24 hours. Progress Note: A&P Assessment and plan (1) CHF (congestive heart failure): Status: Acute (2) Altered mental status: Status: Acute (3) Acute respiratory failure: Status: Acute (4) Stroke: Status: Acute Plan Neuro: Acute encephalopathy possibly due to metabolic encephalopathy from urosepsis on top of underlying dementia and history of multiple strokes in the past CT head did not show any acute infarct, evidence of old infarction right posterior parietooccipital area, basal ganglia and lacunar in infarct in the left basal ganglia area. 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 She had an episode of seizure in the ED while getting CT, so continue Keppra Continue aspirin and statin for history of strokes Cardiac: NSTEMI: Troponin trend flat, BNP 12k on admission received Lasix for diuresis TTE showing EF 45%, multiple regional wall motion abnormalities, aortic stenosis Her last echo in March showed normal LV systolic function, moderate aortic stenosis Cardiology consulted for first-degree AV block along with Mobitz type 1 av block, advised for conservative management Respiratory: Acute hypoxemic respiratory failure due to poor respiratory drive, extubated yesterday, tolerating liberation from ventilator well. Currently saturation stable on room air GI: We will get bedside swallow eval Renal: Acute kidney injury possibly secondary to ATN on top of underlying CKD versus cardiorenal Baseline creatinine around 1.5, creatinine increased to 2.2 possibly secondary to diuresis. We will withhold Lasix We will closely monitor I's and O's Avoid nephrotoxic medications Heme: Chronic anemia, closely monitor H&H, transfuse for hemoglobin less than 7 grams/deciliter Endocrine: Blood sugars under control Hypothyroidism: On levothyroxine supplement Infectious disease: Possibly has a urinary tract infection, urine cultures growing greater than 100 K mixed gladys On ceftriaxone Musculoskeletal: Decubitus ulcer prevention protocol Lines: Peripheral Prophylaxis: Heparin, famotidine Quality Stroke Does the patient have a stroke diagnosis?: No VTE Prior VTE?: No VTE Risk Level:: Medical - moderate - high VTE Device Contraindication: N/A - Device Ordered VTE Drug Contraindication: N/A - Med Ordered
--- NOTE | 2025-07-18 13:56 | PM.EVENT ---
Event Note Date of Service: 07/19/25 Time Spent With Patient Time: Total time managing care of this patient today ____ minutes.
[2025-07-19] VITALS (7 sets, daily range): BP systolic 156–182; BP diastolic 70–77; PULSE 64–93; RESP 16–18; TEMP 36.4–37; O2SAT 93–97; BMI 29.3
[2025-07-19 08:54] LABS: Anion Gap 18 (12-20); Blood Urea Nitrogen 30 mg/dL (9-16); Calcium 9.1 mg/dL (8.4-10.2); Carbon Dioxide 17 mmol/L (22-29); Chloride 115 mmol/L (96-108); Creatinine Clr Calc Pharmacy 21.8; Estimated Glomerular Filt Rate 22; Potassium 3.4 mmol/L (3.3-5.1); Sodium 147 mmol/L (135-145)
--- NOTE | 2025-07-19 11:32 | P.CNNE_ITS ---
History of Present Illness Data of Consult Service Date: 07/19/25 Primary Care Provider: Unknown Physician HPI Reason for consult: Possible seizure 80 years old woman admitted in hospital with probably underlying diagnosis of dementia and encephalopathy. With further worsening of her mental status this consultation was requested. Suspicion of seizure disorder was raised. She had an EEG few days ago that revealed generalized slowing. She was unable to provide any history. Review of Systems 2 Review of Systems: Could not be done with a [facility] Past Medical History Medical History Diabetes mellitus Depression Hypertension Hypothyroid Stroke Social History Social History Household Members: Other Housing: [facility] Do you presently have visiting nurse or other home services: No Comment: bilateral wrist restraints..propofol drip Patient Tobacco Use Status: Never used Tobacco Currently Displaying Signs/Symptoms of Drug Intoxication Withdrawal: No Advance Directives: Yes Advance Directives on File: Yes Advance Directives Date on File: 03/09/25 Nutrition Risks: Dental problems Patient : No service: No Meds Allergies Allergy/AdvReac Type Severity Reaction Status Date / Time No Known Allergies Allergy Verified 07/16/25 10:14 Active Medications: Current Medications Acetaminophen (Acetaminophen 325 Mg Tablet) 650 mg PO Q6H PRN PRN Reason: Fever >100.4 Amlodipine Besylate (Amlodipine Besylate 10 Mg Tablet) 10 mg PO DAILY [facility]; Protocol Last Admin: 07/19/25 09:04 Dose: 10 mg Aspirin (Aspirin 81 Mg Tab.Chew) 81 mg PO DAILY [facility] Last Admin: 07/19/25 09:05 Dose: 81 mg Atorvastatin Calcium (Atorvastatin Calcium 10 Mg Tablet) 10 mg PO BEDTIME [facility] Last Admin: 07/18/25 19:57 Dose: 10 mg Bisacodyl (Bisacodyl 10 Mg Supp.Rect) 10 mg ND DAILY PRN PRN Reason: Constipation Cyanocobalamin (Cyanocobalamin (Vitamin B-12) 1,000 Mcg Tablet) 1,000 mcg PO DAILY [facility] Last Admin: 07/19/25 09:04 Dose: 1,000 mcg Famotidine (Famotidine/Pf 20 Mg/2 Ml Vial) 20 mg IVPUSH BID [facility] Last Admin: 07/19/25 09:06 Dose: 20 mg Furosemide (Furosemide 20 Mg Tablet) 20 mg PO DAILY [facility]; Protocol Last Admin: 07/19/25 09:04 Dose: 20 mg Heparin Sodium (Porcine) (Heparin Sodium,Porcine 5,000 Unit/Ml Vial) 5,000 unit SUBCUT Q8H [facility] Last Admin: 07/19/25 04:36 Dose: 5,000 unit Hydralazine HCl (Hydralazine Hcl 20 Mg/Ml Vial) 10 mg IVPUSH Q6H PRN; Protocol PRN Reason: SBP >160 Last Admin: 07/18/25 16:52 Dose: 10 mg Hydralazine HCl (Hydralazine Hcl 10 Mg Tablet) 10 mg PO TID [facility]; Protocol Hydromorphone HCl (Hydromorphone Hcl 0.5 Mg/0.5 Ml Syringe) 0.25 mg IVPUSH Q4H PRN; Protocol PRN Reason: Anxiety Last Admin: 07/17/25 16:24 Dose: 0.25 mg Ceftriaxone Sodium 2 gm/ (Sodium Chloride) 50 mls @ 100 mls/hr IV Q24H [facility] Last Infusion: 07/18/25 16:05 Dose: Infused Levetiracetam (Keppra) 500 mg in 100 mls @ 400 mls/hr IV Q12H [facility] Last Infusion: 07/18/25 22:29 Dose: Infused Levothyroxine Sodium (Levothyroxine Sodium 125 Mcg Tablet) 125 mcg PO DAILY@0600 [facility] Last Admin: 07/19/25 04:36 Dose: 125 mcg Magnesium Hydroxide (Milk Of Magnesia 30 Ml Oral.Susp) 30 ml PO DAILY PRN PRN Reason: Constipation Melatonin (Melatonin 3 Mg Tablet) 3 mg PO BEDTIME [facility] Nystatin (Nystatin Powder 15 Gm Bottle) 1 appl TOPICAL BID [facility]; Protocol Ondansetron HCl (Ondansetron Hcl 4 Mg/2 Ml Vial) 4 mg IVPUSH Q8H PRN PRN Reason: Nausea and Vomiting Polyethylene Glycol (Polyethylene Glycol 3350 17 Gm Powd.Pack) 17 gm PO DAILY PRN PRN Reason: Constipation Sertraline HCl (Sertraline Hcl 25 Mg Tablet) 37.5 mg PO DAILY [facility] Last Admin: 07/19/25 09:05 Dose: 37.5 mg Vitamin D (Cholecalciferol (Vitamin D3) 25 Mcg Tablet) 25 mcg PO DAILY [facility] Last Admin: 07/19/25 09:04 Dose: 25 mcg Home Medications ?Medication ?Instructions ?Recorded ?Confirmed ?Last Taken ?Type acetaminophen 325 mg tablet 650 mg PO Q6H PRN Fever Or Pain 03/09/25 07/16/25 Unknown History aluminum-mag hydroxide-simethicone 15 ml PO Q6H PRN In digestion 03/09/25 07/16/25 Unknown History 400 mg-400 mg-40 mg/5 mL oral susp (Mylanta Maximum Strength) amlodipine 10 mg tablet 10 mg PO DAILY 03/09/2507/04 Unknown History bisacodyl 10 mg rectal suppository 10 mg ND DAILY PRN Constipation 03/09/25 07/16/25 Unknown History cholecalciferol (vitamin D3) 25 25 mcg PO DAILY 07/16/25 Unknown History mcg (1,000 unit) tablet (Vitamin D3) cyanocobalamin (vitamin B-12) 1,000 mcg PO DAILY 03/0907/16/25 Unknown History 1,000 mcg tablet (Vitamin B-12) irbesartan 300 mg tablet 300 mg PO DAILY 03/09/25 Unknown History magnesium hydroxide 400 mg/5 mL 30 ml PO DAILY PRN Con stipation 03/09/25 07/16/25 Unknown History oral suspension (Milk of Magnesia) melatonin 3 mg tablet 3 mg PO BEDTIME 03/09/25 Unknown History menthol 5 % topical patch (Icy Hot 1 patch topical KIMBERLY LY 03/09/25 07/16/25 Unknown History (menthol)) polyethylene glycol 3350 17 17 g PO DAILY PRN Constipa tion 03/09/25 07/16/25 Unknown History gram/dose oral powder (Miralax) sertraline 25 mg tablet 37.5 mg PO DAILY 03/09/25 Unknown History simvastatin 10 mg tablet 10 mg PO BEDTIME 03/09/25 Unknown History sodium phosphates 19 gram-7 118 ml ND DAILY PRN Consti pation 03/09/25 07/16/25 Unknown History gram/118 mL enema (Fleet Enema) trazodone 50 mg tablet 25 mg PO BEDTIME 03/09/25 Unknown History carvedilol 3.125 mg tablet (Coreg) 3.125 mg PO BID 08/2707/16/25 Unknown History nystatin 100,000 unit/gram topical 1 appl topical BID 04/14/25 07/16/25 Unknown History powder ([facility]) levothyroxine 125 mcg tablet 125 mcg PO DAILY 07/16/25 07/16/25 Unknown History Physical Exam 2 Vital Signs: Vital Signs: Last Vital Signs Temp 97.9 F 07/19/25 08:00 Pulse 66 07/19/25 08:00 Resp 18 07/19/25 08:00 BP 180/73 H 07/19/25 08:00 Pulse Ox 96 07/19/25 08:00 O2 Del Method Room Air 07/19/25 08:00 O2 Flow Rate 1 07/18/25 06:00 FiO2 25 07/17/25 11:35 BMI result Body Mass Index 29.3 Neuro: Other: She is drowsy but able to open her eyes made eye contact and answered some questions but did not know where she was. She did not know what was going on. She was following one-step commands. Arms or legs were somewhat contracted. Face seems symmetrical. Visual escobar were difficult to interpret and it seems like that she has some visual field difficulties. Results Labs 07/18/25 04:34 07/19/25 08:23 Labs: BMP 07/19/25 08:23 Sodium 147 H Potassium 3.4 Chloride 115 H Carbon Dioxide 17 L BUN 30 H Creatinine 2.19 H Calcium 9.1 D EXAMINATION: CT HEAD WITHOUT IV CONTRAST STROKE HISTORY: Aphasia. TECHNIQUE: Unenhanced helical CT of the head was performed per standard departmental protocol. Coronal and sagittal reformats of the head were also evaluated. One or more of the following techniques was used for dose reduction: Automated exposure control, adjustment of the mA and/or kV according to patient size, use of iterative reconstruction technique. DLP: 775 mGy-cm COMPARISON: Previous head CT most recent April 2025 FINDINGS: BRAIN: Old right [employer] territory infarct in the right posterior occipital parietal lobes unchanged. Old right basal ganglia and left basal ganglia/external capsule lacunar infarcts unchanged. No evidence of an extra-axial collection. No evidence of intra or extra-axial hemorrhage. No mass, mass effect or acute infarct is seen. Ventricles and extra-axial CSF spaces are slightly prominent suggestive of mild generalized atrophy. There is mild nonspecific periventricular white matter disease. SINUSES: The visualized paranasal sinuses are clear. The mastoid air cells and middle ear cavities are well pneumatized. ORBITS: The visualized orbits are unremarkable. BONES/SOFT TISSUES: The extracranial soft tissues are unremarkable. The calvarium is intact. No suspicious lytic or sclerotic lesions. CT/CT head for STROKE IMPRESSION: No acute intracranial findings. Old right posterior parietal-occipital and right basal ganglia and left external capsule lacunar infarcts unchanged. No acute infarct or hemorrhage. CTA NECK WITH CONTRAST (STROKE) CTA BRAIN WITH CONTRAST (STROKE) CLINICAL INFORMATION: Slurred speech. Suspect acute stroke. Assess for major vessel occlusion. Please call report. COMPARISON: No prior CT angiogram head neck. Correlated to CT head dated April 14, 2025. TECHNIQUE: CTA of the head and neck was performed in the axial plane from the mediastinum to the skull vertex using 70 mL Omnipaque 350 intravenous contrast. Additional reformatted multiplanar images including maximum intensity projection MIP images are generated on the CT workstation. This CT examination was performed using dose optimization techniques as appropriate, variously including the following: *Automated exposure control *Adjustment of mA and/or kV according to patient size (this includes techniques or standardized protocols for targeted exams where dose is matched to indication/reason for exam; i.e. extremities or head) *Use of iterative reconstruction technique. DLP: 672 mGy centimeter. FINDINGS: The degree of stenosis determined by criteria similar to NASCET. Chest CTA: Calcified plaques in the aortic wall and its main branches without focal stenosis intimal flap or aneurysm. Neck CTA: Right CCA: Normal enhancement. No focal stenosis. No intimal flap. Right ICA: Large calcified plaque in the proximal segment representing 80-90% stenosis. No intimal flap. Tortuosity. Retropharyngeal trajectory. Left CCA: Normal patency. No focal stenosis. No intimal flap. Tortuosity. Left ICA: Calcified plaque representing 40% stenosis. No intimal flap. No focal stenosis. Tortuosity. Retropharyngeal trajectory. V1/V2 segments: Normal patency. Tortuosity. Calcified plaque in the origin of the left vertebral artery. No focal stenosis. No intimal flap. Codominant. Origin from the subclavian artery. Brain CTA: Anterior cerebral circulation: ICAs: Normal patency. Calcified plaques in the cavernous petrous and supraclinoid segments. No focal stenosis. No abrupt cut off. MCA's: Normal patency. No focal stenosis. No abrupt cut off. Bifurcation/trifurcation demonstrated no vascular irregularity. ACAs: Normal patency. No focal stenosis. No abrupt cut off. Anterior communicating artery is not patent. Ophthalmic arteries are patent. I do not see the posterior communicating arteries. Posterior cerebral circulation: V3/V4 segments: Calcified plaques. Normal patency. No focal stenosis. No intimal flap. The posterior inferior cerebral arteries are patent. Basilar artery is patent without focal stenosis or intimal flap. Anterior inferior cerebral arteries are patent. The superior cerebellar arteries are patent. Probable focal stenosis in the origin of the left superior cerebellar artery. palm and back forger: Abrupt cut off in the right P2 segment. Left palm and back forger patent without focal stenosis or abrupt cut off.. Ancillary findings: Bilateral pleural effusions, moderate to large volume. Pulmonary patchy groundglass. Normal patency of the main pulmonary artery and its main left and right branches included in the [id number]. There is an encephalomalacia involving the right cuneus/precuneus and to a lesser extent lingual gyrus. Old lacunar infarct, basal ganglia posterior left external capsule. Multilevel cervical spondylosis. Calcification of the posterior longitudinal ligament C3 C5 resulting in central spinal canal stenosis. CT/CT angio head neck STROKE IMPRESSION: 80-90% stenosis secondary to calcified plaque, right ICA. Atherosclerosis disease, petrous cavernous and supracavernous segments both ICAs. Probable old occlusion, P2 segment right [employer]. Encephalomalacia, right cuneus/precuneus lingual gyrus secondary to old infarct, right [employer] territory No acute main cerebral artery occlusion or embolus. . Microbiology Microbiology Results: Microbiology 07/16/25 10:45 Blood - Venous Blood Culture - Preliminary No growth after 48 hours. 07/16/25 10:36 Blood - Venous Blood Culture - Preliminary No growth after 48 hours. 07/16/25 Unknown Urine Catheterized - Straight Catheter Urine Culture - Final Assessment and Plan (1) Altered mental status: Qualifiers: Altered mental status type: unspecified Qualified Code(s): R41.82 - Altered mental status, unspecified Status: Acute 80 years old woman who has large right posterior cerebral artery chronic ischemic infarct but otherwise rest of the brain did not seem that much affected, was in hospital with encephalopathy. This could be metabolic toxic encephalopathy as her serum sodium was high, epileptic encephalopathy, or combination. In addition, she has severe right carotid artery stenosis. Precise etiology of her clinical situation is unclear and I would recommend obtaining a noncontrast MRI of brain in an EEG again. Procedures Date of Service Date of Service: 07/19/25
[2025-07-19] MEDS: levETIRAcetam in NaCl (iso-os) 500 MG/100 ML PIGGYBACK 400 MG IV ×2 (11:55→21:20)
--- NOTE | 2025-07-19 13:39 | P.PNIM_ITS ---
Subjective Subjective Date of Service: 07/19/25 Interval History: metabolic encephalopathy from urosepsis , bradycardia Review of Systems Patient is pleasantly confused. Otherwise calm No overnight events Physical Exam 2 Exam: Exam: Appearance: awake ,plesantly confused -near baseline cvs: rrr, [id number] . res: clear to auscultation ,no rhonchii or wheezing abd: no rebound or guarding ,nt, bs present. ext pulses present , no cyanosis neuro: axo3 , moves allext. Vital Signs: Vital Signs: Last Vital Signs Temp 97.8 F 07/19/25 11:45 Pulse 64 07/19/25 11:45 Resp 16 07/19/25 11:45 BP 181/77 H 07/19/25 11:45 Pulse Ox 94 07/19/25 11:45 O2 Del Method Room Air 07/19/25 11:45 O2 Flow Rate 1 07/18/25 06:00 FiO2 25 07/17/25 11:35 BMI result Body Mass Index 29.3 Objective Data Active Medications Acetaminophen (Acetaminophen 325 Mg Tablet) 650 mg PO Q6H PRN PRN Reason: Fever >100.4 Amlodipine Besylate (Amlodipine Besylate 10 Mg Tablet) 10 mg PO DAILY [facility]; Protocol Last Admin: 07/19/25 09:04 Dose: 10 mg Documented By: BI Aspirin (Aspirin 81 Mg Tab.Chew) 81 mg PO DAILY [facility] Last Admin: 07/19/25 09:05 Dose: 81 mg Documented By: BI Atorvastatin Calcium (Atorvastatin Calcium 10 Mg Tablet) 10 mg PO BEDTIME [facility] Last Admin: 07/18/25 19:57 Dose: 10 mg Documented By: TANYA Bisacodyl (Bisacodyl 10 Mg Supp.Rect) 10 mg ME DAILY PRN PRN Reason: Constipation Cyanocobalamin (Cyanocobalamin (Vitamin B-12) 1,000 Mcg Tablet) 1,000 mcg PO DAILY [facility] Last Admin: 07/19/25 09:04 Dose: 1,000 mcg Documented By: BI Famotidine (Famotidine/Pf 20 Mg/2 Ml Vial) 20 mg IVPUSH BID [facility] Last Admin: 07/19/25 09:06 Dose: 20 mg Documented By: BI Furosemide (Furosemide 20 Mg Tablet) 20 mg PO DAILY [facility]; Protocol Last Admin: 07/19/25 09:04 Dose: 20 mg Documented By: BI Heparin Sodium (Porcine) (Heparin Sodium,Porcine 5,000 Unit/Ml Vial) 5,000 unit SUBCUT Q8H [facility] Last Admin: 07/19/25 11:57 Dose: 5,000 unit Documented By: BI Hydralazine HCl (Hydralazine Hcl 20 Mg/Ml Vial) 10 mg IVPUSH Q6H PRN; Protocol PRN Reason: SBP >160 Last Admin: 07/18/25 16:52 Dose: 10 mg Documented By: DAYANA Hydralazine HCl (Hydralazine Hcl 10 Mg Tablet) 10 mg PO TID [facility]; Protocol Last Admin: 07/19/25 11:57 Dose: 10 mg Documented By: BI Hydromorphone HCl (Hydromorphone Hcl 0.5 Mg/0.5 Ml Syringe) 0.25 mg IVPUSH Q4H PRN; Protocol PRN Reason: Anxiety Last Admin: 07/17/25 16:24 Dose: 0.25 mg Documented By: SHANNON Ceftriaxone Sodium 2 gm/ (Sodium Chloride) 50 mls @ 100 mls/hr IV Q24H [facility] Last Infusion: 07/18/25 16:05 Dose: Infused Documented By: LEXA Levetiracetam (Keppra) 500 mg in 100 mls @ 400 mls/hr IV Q12H [facility] Last Infusion: 07/19/25 12:27 Dose: Infused Documented By: BI Levothyroxine Sodium (Levothyroxine Sodium 125 Mcg Tablet) 125 mcg PO DAILY@0600 [facility] Last Admin: 07/19/25 04:36 Dose: 125 mcg Documented By: TANYA Magnesium Hydroxide (Milk Of Magnesia 30 Ml Oral.Susp) 30 ml PO DAILY PRN PRN Reason: Constipation Melatonin (Melatonin 3 Mg Tablet) 3 mg PO BEDTIME [facility] Nystatin (Nystatin Powder 15 Gm Bottle) 1 appl TOPICAL BID [facility]; Protocol Last Admin: 07/19/25 11:57 Dose: Not Given Documented By: BI Non-Admin Reason: Med Not Available Ondansetron HCl (Ondansetron Hcl 4 Mg/2 Ml Vial) 4 mg IVPUSH Q8H PRN PRN Reason: Nausea and Vomiting Polyethylene Glycol (Polyethylene Glycol 3350 17 Gm Powd.Pack) 17 gm PO DAILY PRN PRN Reason: Constipation Sertraline HCl (Sertraline Hcl 25 Mg Tablet) 37.5 mg PO DAILY [facility] Last Admin: 07/19/25 09:05 Dose: 37.5 mg Documented By: BI Comments: Vitamin D (Cholecalciferol (Vitamin D3) 25 Mcg Tablet) 25 mcg PO DAILY [facility] Last Admin: 07/19/25 09:04 Dose: 25 mcg Documented By: BI Labs 07/18/25 04:34 07/19/25 08:23 Labs: Laboratory Results - last 24 hr 07/19/25 08:23 Hold Purple Top SEE NOTE Anion Gap 18 Estim Creat Clear Calc 21.8 Estimated GFR 22 Random Glucose 92 Calcium 9.1 D Microbiology Microbiology Results: Microbiology 07/16/25 10:45 Blood Culture - Preliminary Blood - Venous No growth after 48 hours. 07/16/25 10:36 Blood Culture - Preliminary Blood - Venous No growth after 48 hours. 07/16/25 Unknown Urine Culture - Final Urine Catheterized - Straight Catheter Assessment and Plan (1) CHF (congestive heart failure): Status: Acute (2) Mobitz type 1 second degree atrioventricular block: Status: Acute Assessment and Plan: 80/F with past medical history of vascular dementia, , age-related physical debility, HTN, hypothyroidism, HLD, GERD admitted to the hospital in ICU because of metabolic encephalopathy in the setting of UTI and sepsis. Acute encephalopathy possibly due to metabolic encephalopathy from sepsis(sec to uti) on top of underlying dementia and history of multiple strokes in the past CT head did not show any acute infarct, evidence of old infarction right posterior parietooccipital area, basal ganglia and lacunar in infarct in the left basal ganglia area. 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 episode of seizure in the ED while getting CT. plan: started on Keppra in icu Continue aspirin and statin for history of strokes neurochecks ,eeg ,neurology eval. sepsis sec uti: Possibly has a urinary tract infection, urine cultures growing greater than 100 K mixed gladys On ceftriaxone Acute hypoxemic respiratory failure due to poor respiratory drive, extubated and resolved , tolerating diet. Currently saturation stable on room air. NSTEMI: tele -sinus bradycardia ,pvc ,occasional mobitz ? Troponin trend flat, BNP 12k on admission received Lasix for diuresis TTE showing EF 45%, multiple regional wall motion abnormalities, aortic stenosis echo in March showed normal LV systolic function, moderate aortic stenosis Cardiology consulted for first-degree AV block along with Mobitz type 1 av block: no new symptoms, advised for conservative management above. Acute kidney injury possibly secondary to ATN on top of underlying CKD versus cardiorenal, hypernatremia : Baseline creatinine around 1.5, creatinine increased to 2.2 possibly secondary to diuresis. hold Lasix We will closely monitor I's and O's Avoid nephrotoxic medications Chronic normocytic anemia, closely monitor H&H stable around 10.3/31.6. Hypothyroidism: On levothyroxine supplement. uncontrolled htn: continue amlodipine ,added hydralzine po ,also prn iv hydralazine as needed for bp. Prophylaxis: Heparin, famotidine. Ongoing need for stay:sepsis , uti , seizure ,hypernatremia -need iv antiobiotics , need neurology workup and neurology, renal function and electrolytes . Quality Stroke Does the patient have a stroke diagnosis?: No VTE Prior VTE?: No VTE Risk Level:: Medical - moderate - high VTE Device Contraindication: N/A - Device Ordered VTE Drug Contraindication: N/A - Med Ordered
[2025-07-20] VITALS (9 sets, daily range): BP systolic 130–188; BP diastolic 64–80; PULSE 58–122; RESP 16–18; TEMP 36.6–37.1; O2SAT 93–95
[2025-07-20 07:49] LABS: Anion Gap 15 (12-20); Blood Urea Nitrogen 32 mg/dL (9-16); Calcium 8.8 mg/dL (8.4-10.2); Carbon Dioxide 19 mmol/L (22-29); Chloride 112 mmol/L (96-108); Creatinine Clr Calc Pharmacy 23.6; Estimated Glomerular Filt Rate 24; Potassium 3.4 mmol/L (3.3-5.1); Sodium 143 mmol/L (135-145)
[2025-07-20] MEDS: levETIRAcetam in NaCl (iso-os) 500 MG/100 ML PIGGYBACK 400 MG IV ×2 (09:15→21:51)
--- NOTE | 2025-07-20 11:17 | MHC.CLN ---
F/U PT WAS EXTUBATED AND TRANSFERRED TO MEDICAL FLOOR DIET ADVANCED TO CARDIAC CHOPPED PO INTAKE 75% X2 MEALS NOTED REDNESS, NO PRESSURE INJURIES RD TO FOLLOW WEEKLY
--- NOTE | 2025-07-20 15:14 | P.PNIM_ITS ---
Subjective Subjective Date of Service: 07/20/25 Interval History: donnie ,hypernatremia Review of Systems Denies any new complaints Shortness of breaths somewhat improved no new seizures Physical Exam 2 Exam: Exam: Appearance: awake ,plesantly confused -near baseline cvs: rrr, [id number] . res: clear to auscultation ,no rhonchii or wheezing abd: no rebound or guarding ,nt, bs present. ext pulses present , no cyanosis neuro: axo3 , moves allext. Vital Signs: Vital Signs: Last Vital Signs Temp 97.9 F 07/20/25 12:00 Pulse 58 07/20/25 12:00 Resp 18 07/20/25 12:00 BP 152/70 H 07/20/25 12:00 Pulse Ox 93 07/20/25 12:00 O2 Del Method Room Air 07/20/25 12:00 O2 Flow Rate 1 07/18/25 06:00 FiO2 25 07/17/25 11:35 BMI result Body Mass Index 29.3 Objective Data Active Medications Acetaminophen (Acetaminophen 325 Mg Tablet) 650 mg PO Q6H PRN PRN Reason: Fever >100.4 Amlodipine Besylate (Amlodipine Besylate 10 Mg Tablet) 10 mg PO DAILY [facility]; Protocol Last Admin: 07/20/25 09:20 Dose: 10 mg Documented By: DARIN Aspirin (Aspirin 81 Mg Tab.Chew) 81 mg PO DAILY [facility] Last Admin: 07/20/25 09:21 Dose: 81 mg Documented By: DARIN Atorvastatin Calcium (Atorvastatin Calcium 10 Mg Tablet) 10 mg PO BEDTIME [facility] Last Admin: 07/19/25 21:04 Dose: 10 mg Documented By: MACKENZIE Bisacodyl (Bisacodyl 10 Mg Supp.Rect) 10 mg OR DAILY PRN PRN Reason: Constipation Cyanocobalamin (Cyanocobalamin (Vitamin B-12) 1,000 Mcg Tablet) 1,000 mcg PO DAILY [facility] Last Admin: 07/20/25 09:21 Dose: 1,000 mcg Documented By: DARIN Famotidine (Famotidine/Pf 20 Mg/2 Ml Vial) 20 mg IVPUSH BID [facility] Last Admin: 07/20/25 09:19 Dose: 20 mg Documented By: DARIN Furosemide (Furosemide 20 Mg Tablet) 20 mg PO DAILY [facility]; Protocol Last Admin: 07/20/25 09:19 Dose: 20 mg Documented By: DARIN Heparin Sodium (Porcine) (Heparin Sodium,Porcine 5,000 Unit/Ml Vial) 5,000 unit SUBCUT Q8H [facility] Last Admin: 07/20/25 13:15 Dose: 5,000 unit Documented By: DARIN Hydralazine HCl (Hydralazine Hcl 20 Mg/Ml Vial) 10 mg IVPUSH Q6H PRN; Protocol PRN Reason: SBP >160 Last Admin: 07/19/25 23:52 Dose: 10 mg Documented By: MACKENZIE Hydralazine HCl (Hydralazine Hcl 10 Mg Tablet) 10 mg PO TID [facility]; Protocol Last Admin: 07/20/25 09:20 Dose: 10 mg Documented By: DARIN Hydromorphone HCl (Hydromorphone Hcl 0.5 Mg/0.5 Ml Syringe) 0.25 mg IVPUSH Q4H PRN; Protocol PRN Reason: Anxiety Last Admin: 07/17/25 16:24 Dose: 0.25 mg Documented By: SHANNON Ceftriaxone Sodium 2 gm/ (Sodium Chloride) 50 mls @ 100 mls/hr IV Q24H [facility] Last Infusion: 07/19/25 17:40 Dose: Infused Documented By: BI Levetiracetam (Keppra) 500 mg in 100 mls @ 400 mls/hr IV Q12H [facility] Last Infusion: 07/20/25 09:31 Dose: Infused Documented By: DARIN Levothyroxine Sodium (Levothyroxine Sodium 125 Mcg Tablet) 125 mcg PO DAILY@0600 [facility] Last Admin: 07/20/25 05:05 Dose: 125 mcg Documented By: MACKENZIE Magnesium Hydroxide (Milk Of Magnesia 30 Ml Oral.Susp) 30 ml PO DAILY PRN PRN Reason: Constipation Melatonin (Melatonin 3 Mg Tablet) 3 mg PO BEDTIME [facility] Last Admin: 07/19/25 21:04 Dose: 3 mg Documented By: MACKENZIE Nystatin (Nystatin Powder 15 Gm Bottle) 1 appl TOPICAL BID [facility]; Protocol Last Admin: 07/20/25 09:30 Dose: 1 appl Documented By: DARIN Ondansetron HCl (Ondansetron Hcl 4 Mg/2 Ml Vial) 4 mg IVPUSH Q8H PRN PRN Reason: Nausea and Vomiting Polyethylene Glycol (Polyethylene Glycol 3350 17 Gm Powd.Pack) 17 gm PO DAILY PRN PRN Reason: Constipation Sertraline HCl (Sertraline Hcl 25 Mg Tablet) 37.5 mg PO DAILY [facility] Last Admin: 07/20/25 09:19 Dose: 37.5 mg Documented By: DARIN Vitamin D (Cholecalciferol (Vitamin D3) 25 Mcg Tablet) 25 mcg PO DAILY [facility] Last Admin: 07/20/25 09:21 Dose: 25 mcg Documented By: DARIN Labs 07/18/25 04:34 07/20/25 06:46 Labs: Laboratory Results - last 24 hr 07/20/25 06:46 Hold Purple Top SEE NOTE Anion Gap 15 Estim Creat Clear Calc 23.6 Estimated GFR 24 Random Glucose 95 Calcium 8.8 Assessment and Plan (1) CHF (congestive heart failure): Status: Acute (2) Mobitz type 1 second degree atrioventricular block: Status: Acute Assessment and Plan: 80/F with past medical history of vascular dementia, , age-related physical debility, HTN, hypothyroidism, HLD, GERD admitted to the hospital in ICU because of metabolic encephalopathy in the setting of UTI and sepsis. Acute encephalopathy possibly due to metabolic encephalopathy from sepsis(sec to uti) on top of underlying dementia and history of multiple strokes in the past CT head did not show any acute infarct, evidence of old infarction right posterior parietooccipital area, basal ganglia and lacunar in infarct in the left basal ganglia area. 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 episode of seizure in the ED while getting CT. plan: started on Keppra in icu Continue aspirin and statin for history of strokes seizure episode [facility] neuro recomended eeg and brain mri which is added. sepsis sec uti: Possibly has a urinary tract infection, urine cultures growing greater than 100 K mixed gladys On ceftriaxone Acute hypoxemic respiratory failure due to poor respiratory drive, extubated and resolved , tolerating diet. Currently saturation stable on room air. NSTEMI: tele -sinus bradycardia ,pvc ,occasional mobitz ? Troponin trend flat, BNP 12k on admission received Lasix for diuresis TTE showing EF 45%, multiple regional wall motion abnormalities, aortic stenosis echo in March showed normal LV systolic function, moderate aortic stenosis Cardiology consulted for first-degree AV block along with Mobitz type 1 av block: no new symptoms, advised for conservative management above. Acute kidney injury possibly secondary to ATN on top of underlying CKD versus cardiorenal, hypernatremia : Baseline creatinine around 1.5, creatinine increased to 2.2 possibly secondary to diuresis. hold Lasix We will closely monitor I's and O's Avoid nephrotoxic medications Hyponatremia improving, Nephro recommended to add low-dose Lasix Chronic normocytic anemia, closely monitor H&H stable around 10.3/31.6. Hypothyroidism: On levothyroxine supplement. uncontrolled htn: continue amlodipine ,added hydralzine po ,also prn iv hydralazine as needed for bp. Prophylaxis: Heparin, famotidine. Ongoing need for stay:sepsis , uti , seizure ,hypernatremia -need iv antiobiotics , need neurology workup and neurology, renal function and electrolytes . Quality Stroke Does the patient have a stroke diagnosis?: No VTE Prior VTE?: No VTE Risk Level:: Medical - moderate - high VTE Device Contraindication: N/A - Device Ordered VTE Drug Contraindication: N/A - Med Ordered
--- NOTE | 2025-07-20 16:18 | MHC.CM.PN ---
PER MD NOTES, PT NOT MEDICALLY CLEAR, STILL GETTING IV ABX AND NEURO WORKUP PENDING
[2025-07-21 02:34] VITALS: BP 133/61; PULSE 60; RESP 17; TEMP 36.4; O2SAT 95
[2025-07-21 06:00] VITALS: BMI 29.2
[2025-07-21 08:00] VITALS: BP 138/68; PULSE 68; RESP 18; TEMP 36.9; O2SAT 92
[2025-07-21 09:28] VITALS: BP 195/84
[2025-07-21] MEDS: levETIRAcetam in NaCl (iso-os) 500 MG/100 ML PIGGYBACK 400 MG IV ×2 (09:35→21:27)
[2025-07-21 11:31] VITALS: BP 138/56; PULSE 62
[2025-07-21 16:00] VITALS: BP 134/56; PULSE 65; RESP 18; TEMP 36.9; O2SAT 95
--- NOTE | 2025-07-21 17:44 | P.PNIM_ITS ---
Subjective Subjective Date of Service: 07/21/25 Interval History: dememtia Review of Systems no seizure episode Denies new c/o Physical Exam 2 Exam: Exam: Appearance: awake ,plesantly confused -near baseline cvs: rrr, [id number] . res: clear to auscultation ,no rhonchii or wheezing abd: no rebound or guarding ,nt, bs present. ext pulses present , no cyanosis neuro: axo3 , moves allext. Vital Signs: Vital Signs: Last Vital Signs Temp 98.5 F 07/21/25 16:00 Pulse 65 07/21/25 16:00 Resp 18 07/21/25 16:00 BP 134/56 L 07/21/25 16:00 Pulse Ox 95 07/21/25 16:00 O2 Del Method Room Air 07/21/25 16:00 O2 Flow Rate 3 07/20/25 15:25 FiO2 25 07/17/25 11:35 BMI result Body Mass Index 29.3 Objective Data Active Medications Acetaminophen (Acetaminophen 325 Mg Tablet) 650 mg PO Q6H PRN PRN Reason: Fever >100.4 Amlodipine Besylate (Amlodipine Besylate 10 Mg Tablet) 10 mg PO DAILY [facility]; Protocol Last Admin: 07/21/25 09:28 Dose: 10 mg Documented By: EULALIA Aspirin (Aspirin 81 Mg Tab.Chew) 81 mg PO DAILY [facility] Last Admin: 07/21/25 09:24 Dose: 81 mg Documented By: EULALIA Atorvastatin Calcium (Atorvastatin Calcium 10 Mg Tablet) 10 mg PO BEDTIME [facility] Last Admin: 07/20/25 21:07 Dose: 10 mg Documented By: GINGER Bisacodyl (Bisacodyl 10 Mg Supp.Rect) 10 mg FL DAILY PRN PRN Reason: Constipation Cyanocobalamin (Cyanocobalamin (Vitamin B-12) 1,000 Mcg Tablet) 1,000 mcg PO DAILY [facility] Last Admin: 07/21/25 09:24 Dose: 1,000 mcg Documented By: EULALIA Famotidine (Famotidine/Pf 20 Mg/2 Ml Vial) 20 mg IVPUSH BID [facility] Last Admin: 07/21/25 09:26 Dose: 20 mg Documented By: EULALIA Furosemide (Furosemide 20 Mg Tablet) 20 mg PO DAILY [facility]; Protocol Last Admin: 07/21/25 09:28 Dose: 20 mg Documented By: EULALIA Heparin Sodium (Porcine) (Heparin Sodium,Porcine 5,000 Unit/Ml Vial) 5,000 unit SUBCUT Q8H [facility] Last Admin: 07/21/25 12:18 Dose: 5,000 unit Documented By: EULALIA Hydralazine HCl (Hydralazine Hcl 20 Mg/Ml Vial) 10 mg IVPUSH Q6H PRN; Protocol PRN Reason: SBP >160 Last Admin: 07/20/25 19:02 Dose: 10 mg Documented By: DARIN Hydralazine HCl (Hydralazine Hcl 10 Mg Tablet) 10 mg PO TID [facility]; Protocol Last Admin: 07/21/25 09:28 Dose: 10 mg Documented By: EULALIA Hydromorphone HCl (Hydromorphone Hcl 0.5 Mg/0.5 Ml Syringe) 0.25 mg IVPUSH Q4H PRN; Protocol PRN Reason: Anxiety Last Admin: 07/17/25 16:24 Dose: 0.25 mg Documented By: SHANNON Ceftriaxone Sodium 2 gm/ (Sodium Chloride) 50 mls @ 100 mls/hr IV Q24H [facility] Last Infusion: 07/20/25 16:57 Dose: Infused Documented By: DARIN Levetiracetam (Keppra) 500 mg in 100 mls @ 400 mls/hr IV Q12H [facility] Last Infusion: 07/21/25 10:11 Dose: Infused Documented By: EULALIA Levothyroxine Sodium (Levothyroxine Sodium 125 Mcg Tablet) 125 mcg PO DAILY@0600 [facility] Last Admin: 07/21/25 05:30 Dose: 125 mcg Documented By: GINGER Magnesium Hydroxide (Milk Of Magnesia 30 Ml Oral.Susp) 30 ml PO DAILY PRN PRN Reason: Constipation Melatonin (Melatonin 3 Mg Tablet) 3 mg PO BEDTIME [facility] Last Admin: 07/20/25 21:07 Dose: 3 mg Documented By: GINGER Nystatin (Nystatin Powder 15 Gm Bottle) 1 appl TOPICAL BID [facility]; Protocol Last Admin: 07/21/25 09:23 Dose: 1 appl Documented By: EULALIA Ondansetron HCl (Ondansetron Hcl 4 Mg/2 Ml Vial) 4 mg IVPUSH Q8H PRN PRN Reason: Nausea and Vomiting Polyethylene Glycol (Polyethylene Glycol 3350 17 Gm Powd.Pack) 17 gm PO DAILY PRN PRN Reason: Constipation Sertraline HCl (Sertraline Hcl 25 Mg Tablet) 37.5 mg PO DAILY [facility] Last Admin: 07/21/25 09:23 Dose: 37.5 mg Documented By: EULALIA Vitamin D (Cholecalciferol (Vitamin D3) 25 Mcg Tablet) 25 mcg PO DAILY [facility] Last Admin: 07/21/25 09:24 Dose: 25 mcg Documented By: EULALIA Labs 07/18/25 04:34 07/20/25 06:46 Microbiology Microbiology Results: Microbiology 07/16/25 10:45 Blood Culture - Final Blood - Venous No growth after 5 days. 07/16/25 10:36 Blood Culture - Final Blood - Venous No growth after 5 days. Assessment and Plan (1) CHF (congestive heart failure): Status: Acute (2) Mobitz type 1 second degree atrioventricular block: Status: Acute Assessment and Plan: 80/F with past medical history of vascular dementia, , age-related physical debility, HTN, hypothyroidism, HLD, GERD admitted to the hospital in ICU because of metabolic encephalopathy in the setting of UTI and sepsis. Acute encephalopathy possibly due to metabolic encephalopathy from sepsis(sec to uti) on top of underlying dementia and history of multiple strokes in the past CT head did not show any acute infarct, evidence of old infarction right posterior parietooccipital area, basal ganglia and lacunar in infarct in the left basal ganglia area. 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 episode of seizure in the ED while getting CT. plan: started on Keppra in icu Continue aspirin and statin for history of strokes seizure episode [facility] neuro recomended mri done -There is no evidence of intracranial hemorrhage, acute infarction, mass effect, or edema.2. There is an old right parieto-occipital infarct with cystic encephalomalacia and mild ex vacuo dilatation of the right lateral ventricular atrium, and mild associated hemosiderin deposition.3. There are old lacunar type infarcts in the right basal ganglia, right thalamus, and left external capsule.4. There are mild to moderate white matter changes of small vessel ischemia. EEG done -report pending and neurology follow up. sepsis sec uti: Possibly has a urinary tract infection, urine cultures growing greater than 100 K mixed gladys On ceftriaxone Acute hypoxemic respiratory failure due to poor respiratory drive, extubated and resolved , tolerating diet. Currently saturation stable on room air. NSTEMI: tele -sinus bradycardia ,pvc ,occasional mobitz ? Troponin trend flat, BNP 12k on admission received Lasix for diuresis TTE showing EF 45%, multiple regional wall motion abnormalities, aortic stenosis echo in March showed normal LV systolic function, moderate aortic stenosis Cardiology consulted for first-degree AV block along with Mobitz type 1 av block: no new symptoms, advised for conservative management above. Acute kidney injury possibly secondary to ATN on top of underlying CKD versus cardiorenal, hypernatremia : Baseline creatinine around 1.5, creatinine increased to 2.2 possibly secondary to diuresis. hold Lasix We will closely monitor I's and O's Avoid nephrotoxic medications Hyponatremia improving, Nephro recommended to add low-dose Lasix Chronic normocytic anemia, closely monitor H&H stable around 10.3/31.6. Hypothyroidism: On levothyroxine supplement. uncontrolled htn: continue amlodipine ,added hydralzine po ,also prn iv hydralazine as needed for bp. Prophylaxis: Heparin, famotidine. Ongoing need for stay:sepsis , uti , seizure ,hypernatremia -need iv antiobiotics , need neurology workup and neurology, renal function and electrolytes . Quality Stroke Does the patient have a stroke diagnosis?: No VTE Prior VTE?: No VTE Risk Level:: Medical - moderate - high VTE Device Contraindication: N/A - Device Ordered VTE Drug Contraindication: N/A - Med Ordered
--- NOTE | 2025-07-21 18:11 | P.CDIM_ITS ---
PROVIDER RESPONSE TEXT: To clarify, the appropriate diagnosis supported by the clinical indicators: Other (explain): HFpEF QUERY TEXT: PHYSICIAN'S DOCUMENTATION REQUEST Date of Query: 07/21/2025 08:10 AM EST Patient Name: Beatrice Brown Admit Date: 07/16/2025 Dear Kishore Bautista MD, A review of the medical record indicates additional documentation may be needed. Please review below and update the documentation accordingly. Clinical Indicators: BNP 12.000 on admission received Lasix for diuresis echo in March showed normal LV systolic function Per ED note 07/16/25: CHF Please provide further specificity regarding the most likely type and acuity of CHF you are evaluating, treating, or monitoring. Systolic Please specify if Acute, Chronic, or Acute on chronic, or Unable to determine Diastolic Please specify if Acute, Chronic, or Acute on chronic, or Unable to determine Combined Systolic/Diastolic Please specify if Acute, Chronic, or Acute on chronic, or Unable to determine Other (explain) Clinically unable to determine (explain) Thank you, Mayela Anderson RN Use of terms such as suspected, likely, concern for, or probable (associated with a specific diagnosis that is being evaluated, monitored, or treated as if it exists) are acceptable and can be coded in the inpatient setting, when documented at the time of discharge. Please use your independent medical judgment in providing your response. THIS QUERY IS PART OF THE PERMANENT MEDICAL RECORD
[2025-07-21 19:56] VITALS: BP 164/80; PULSE 68; RESP 20; TEMP 36.6; O2SAT 95
[2025-07-22] VITALS: BP 158/77; PULSE 66; RESP 18; TEMP 36.4; O2SAT 94
[2025-07-22 06:00] VITALS: BMI 29.2
[2025-07-22 08:00] VITALS: BP 151/66; PULSE 67; RESP 20; TEMP 36.4; O2SAT 95
[2025-07-22] MEDS: levETIRAcetam in NaCl (iso-os) 500 MG/100 ML PIGGYBACK 400 MG IV (10:48)
[2025-07-22 12:00] VITALS: BP 166/62; PULSE 51; RESP 20; TEMP 36.4; O2SAT 96
--- NOTE | 2025-07-22 12:21 | PM.DS ---
DS: Providers Provider Date of Service: 07/22/25 Date of admission: 07/16/25 11:16 Date of discharge: 07/22/25 Primary care physician: Sandra Chao MD Consults: 07/17/25 14:31 Consult to Cardiology Routine Consulting Provider: [facility] Reason for consultation: Mobitz type 1 and 2b heart block Has provider been notified: No 07/18/25 16:13 Consult to Neurology Routine Consulting Provider: [facility] Reason for consultation: seizure Has provider been notified: No DS: Diagnosis Discharge Diagnosis (1) CHF (congestive heart failure): Status: Acute (2) Mobitz type 1 second degree atrioventricular block: Status: Acute DS: Summary Hospital Course Hospital Course: from initial hpi: 80-year-old lady with past medical history of vascular dementia, dementia, age-related physical debility, HTN, hypothyroidism, HLD, GERD was apparently at her baseline until last night. This morning patient was found unresponsive so EMS was called and was brought into the emergency room. In the ER patient was unable to protect her airway so she is intubated and placed on ventilator support. 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 Labs suggestive of no leukocytosis, chronic anemia, acute on CKD with creatinine 1.8, troponin 101 and elevated BNP to 12K TTE in March showed normal EF, mild to moderate aortic stenosis ICU consulted for admission She had a MOLST form as DNR/DNI, the healthcare proxy Lorenzo reversed her code status. hospital course: Patient was admitted to the intensive care unit for acute metabolic encephalopathy and acute hypoxic respiratory failure due to sepsis secondary to urinary tract infection complicated by bilateral carotid stenosis, requiring intubation, NSTEMI. Patient is treated with ceftriaxone, Hector extubated. There was concern for possible seizure was started on Keppra, EEG was done and report should be followed up with Neurology as outpatient. Urine and blood cultures were unremarkable on discharge she will continue 5 more days of Ceftin. Patient was weaned to room air. For NSTEMI echo showed EF of 45% with multiple regional wall abnormalities and aortic stenosis and also noted to have asymptomatic Mobitz type 1 second-degree AV block seen by Cardiology who felt this was likely demand ischemia from sepsis, recommended avoiding beta-blockers due to bradycardia but patient not requiring pacing therapy. For LORENZA and CKD 3 Due to ATN from sepsis, creatinine stabilized around 2 at time of discharge. for hypothyroid was continued levothyroxine. For uncontrolled hypertension was continued on amlodipine and hydralazine 25 t.i.d. was added. Patient will be discharged back to custodial facility. Time Attestation Discharge Coordination Time (in mins): 34 Quality: Safe Use of Opioids Does Pt have an Active Cancer Diagnosis on the Problem List?: No Quality: Stroke Does the patient have a stroke diagnosis?: No Physical Exam Exam: Exam: Appearance: awake ,plesantly confused -near baseline cvs: rrr, [id number] . res: clear to auscultation ,no rhonchii or wheezing abd: no rebound or guarding ,nt, bs present. ext pulses present , no cyanosis neuro: axo3 , moves allext. Vital Signs: Vital Signs: Last Vital Signs Temp 97.5 F 07/22/25 08:00 Pulse 67 07/22/25 08:00 Resp 20 07/22/25 08:00 BP 151/66 H 07/22/25 08:00 Pulse Ox 95 07/22/25 08:00 O2 Del Method Room Air 07/22/25 08:00 O2 Flow Rate 3 07/20/25 15:25 FiO2 25 07/17/25 11:35 BMI result Body Mass Index 29.2 DS: Data Data Completed and Pending Completed studies during hospitalization [Text1]: Procedures Insertion of Endotracheal Airway into Trachea, Via Natural or Artificial Opening (03/09/25) Respiratory Ventilation, Less than 24 Consecutive Hours (03/09/25) Discharge Plan Discharge Anticipated Discharge Date/Time: 07/22/25 12:13 Patient Disposition: Xfer SNF Discharge Diagnosis: ams, hypoxia, uti Referrals: [facility] [Outside] - 1 Day Referral Note: RESUMPTION OF LTC Kavita Chao MD [Physician, Physical Medicine and Rehab] - 1 Week Discharge Medications: New hydralazine 25 mg tablet 25 mg PO TID Qty: 0 0RF aspirin 81 mg Tablet,Chewable 81 mg PO DAILY Qty: 0 0RF levetiracetam [Keppra] 500 mg tablet 500 mg PO BID Qty: 180 0RF cefuroxime axetil 500 mg tablet 250 mg PO BID Qty: 5 0RF Continued nystatin [Nyamyc] 100,000 unit/gram powder 1 appl topical BID Rx Instructions: Apply to bilateral breast furosemide [Lasix] 20 mg tablet 20 mg PO DAILY Qty: 90 0RF acetaminophen 325 mg Tablet 650 mg PO Q6H MDD 3 gm/24h PRN (Reason: Fever Or Pain) trazodone 50 mg tablet 25 mg PO BEDTIME simvastatin 10 mg tablet 10 mg PO BEDTIME cyanocobalamin (vitamin B-12) [Vitamin B-12] 1,000 mcg Tablet 1,000 mcg PO DAILY melatonin 3 mg Tablet 3 mg PO BEDTIME magnesium hydroxide [Milk of Magnesia] 400 mg/5 mL Suspension 30 ml PO DAILY PRN (Reason: Constipation) Rx Instructions: (Step 1) If no BM for 3 days amlodipine 10 mg tablet 10 mg PO DAILY bisacodyl 10 mg Suppository 10 mg MD DAILY PRN (Reason: Constipation) Rx Instructions: If no BM for 8 hours after M.O.M Fleet Enema 19-7 gram/118 mL Enema 118 ml MD DAILY PRN (Reason: Constipation) Rx Instructions: (Step 3) If no BM for 8 hours after Bisacodyl Supp. sertraline 25 mg tablet 37.5 mg PO DAILY Rx Instructions: Give with 25 mg for a total dose =37.5 polyethylene glycol 3350 [Miralax] 17 gram/dose Powder 17 g PO DAILY PRN (Reason: Constipation) alum-mag hydroxide-simeth [Mylanta Maximum Strength] 400-400-40 mg/5 mL Suspension 15 ml PO Q6H PRN (Reason: Indigestion) menthol [Icy Hot (menthol)] 5 % Adhesive Patch,Medicated 1 patch TOPICAL DAILY Rx Instructions: (B) knees cholecalciferol (vitamin D3) [Vitamin D3] 25 mcg (1,000 unit) Tablet 25 mcg PO DAILY levothyroxine 125 mcg tablet 125 mcg PO DAILY Discontinued carvedilol [Coreg] 3.125 mg Tablet 3.125 mg PO BID Rx Instructions: must administer with a meal/food irbesartan 300 mg tablet 300 mg PO DAILY Discharge Orders: Discharge Order (Routine); Ordered 07/22/25 Ordered By: Junior Gomes Diet: Advance to usual diet Activity on Discharge: As tolerated Stand Alone Forms: Patient Portal Discharge page Print Language: Luxembourger Care Plan Goals: recovery Health Concerns: uti, seizure Plan of Treatment: med changes as noted follow up eeg, neuro complete ceftin course Assessment: see above
--- NOTE | 2025-07-22 13:54 | MHC.CM.PN ---
IMM 07/22/25, PT MEDICALLY CLEARED FOR DC BACK TO LTC AT [facility] FOR BLS TRANSPORT AT 4:30PM
--- NOTE | 2025-07-22 14:27 | PC.NURSE ---
Pt HR dropped to 30s and even as low as 29, while sleeping. pt asymptomatic. Dr Gomes made aware.
[2025-07-22 16:00] VITALS: BP 161/68; PULSE 50; RESP 18; TEMP 36.6; O2SAT 96
== END 2025-07-22 17:35 | disposition skilled nursing facility (03) | DRG 871 ==
LOC: HO.ED 10:16 → HO.EDOVER 11:25 → HO.ICU 11:35 → HO.IMC 07-18 15:11
PROVIDERS: Internal Medicine; Physician Assistant Medical; Admitting Provider Internal Medicine Critical Care Medicine; Emergency Provider Emergency Medicine; PCP Internal Medicine; Visit Provider Internal Medicine
DX: A41.9 Sepsis, unspecified organism (principal); G93.41 Metabolic encephalopathy; N17.0 Acute kidney failure with tubular necrosis; I21.A1 Myocardial infarction type 2; J96.01 Acute respiratory failure with hypoxia; N39.0 Urinary tract infection, site not specified; I13.0 Hypertensive heart and chronic kidney disease with heart failure and stage 1 through stage 4 chronic kidney disease, or unspecified chronic kidney disease; E87.0 Hyperosmolality and hypernatremia; D63.1 Anemia in chronic kidney disease; I50.9 Heart failure, unspecified; F01.50 Vascular dementia, unspecified severity, without behavioral disturbance, psychotic disturbance, mood disturbance, and anxiety; Z66 Do not resuscitate; I35.0 Nonrheumatic aortic (valve) stenosis; I44.1 Atrioventricular block, second degree; E03.9 Hypothyroidism, unspecified; N18.30 Chronic kidney disease, stage 3 unspecified; Z86.73 Personal history of transient ischemic attack (TIA), and cerebral infarction without residual deficits; Z79.82 Long term (current) use of aspirin; Z79.890 Hormone replacement therapy; Z79.899 Other long term (current) drug therapy
CPT/HCPCS: 36415; 70450; 70496; 70498; 70551; 71045; 80048; 80053; 81001; 82803; 82947; 83605; 83735; 83880; 84100; 84443; 84484; 85025; 85610; 85730; 87040; 87086; 93005; 93306; 94002; 94003; 94799; 95816; 99285; J0330; J0360; J0696; J1171; J1308; J1644; J1920; J1938; J1953; J2405; J2543; J2704; J3010; J3360; J7120; Q9957; Q9967

== ENCOUNTER → 2025-07-16 09:08 | Outpatient (BNV) | payer MEDICARE, MEDICAID, SELFPAY | PROVIDERS: Emergency Provider Emergency Medicine; Visit Provider Radiology Diagnostic Radiology | DX: I65.23 Occlusion and stenosis of bilateral carotid arteries (principal); I25.10 Atherosclerotic heart disease of native coronary artery without angina pectoris; J90 Pleural effusion, not elsewhere classified; R47.01 Aphasia; J81.0 Acute pulmonary edema; Z97.8 Presence of other specified devices | CPT/HCPCS: 70450 ==

== ENCOUNTER → 2025-07-16 09:38 | Outpatient (BNV) | payer MEDICARE, MEDICAID, SELFPAY | PROVIDERS: Admitting Provider Internal Medicine Critical Care Medicine; Emergency Provider Emergency Medicine; Visit Provider Internal Medicine Cardiovascular Disease | DX: I44.0 Atrioventricular block, first degree (principal); I25.2 Old myocardial infarction | CPT/HCPCS: 93010 ==

== ENCOUNTER 2025-07-16 11:16 | Outpatient (BNV) | payer MEDICARE, MEDICAID, SELFPAY | END 2025-07-21 12:27 | PROVIDERS: Admitting Provider Internal Medicine Critical Care Medicine; Emergency Provider Emergency Medicine; PCP Internal Medicine; Visit Provider Radiology Diagnostic Radiology | DX: I67.82 Cerebral ischemia (principal); R90.82 White matter disease, unspecified | CPT/HCPCS: 70551 ==

== ENCOUNTER 2025-07-16 11:16 | Outpatient (BNV) | payer MEDICARE, MEDICAID, SELFPAY | END 2025-07-18 10:30 | PROVIDERS: Admitting Provider Internal Medicine Critical Care Medicine; Emergency Provider Emergency Medicine; PCP Internal Medicine; Visit Provider Psychiatry & Neurology Neurology | DX: R94.01 Abnormal electroencephalogram [EEG] (principal); R41.82 Altered mental status, unspecified | CPT/HCPCS: 95816 ==

== ENCOUNTER 2025-07-16 11:16 | Outpatient (BNV) | payer MEDICARE, MEDICAID, SELFPAY | END 2025-07-17 09:47 | PROVIDERS: Admitting Provider Internal Medicine Critical Care Medicine; Emergency Provider Emergency Medicine; Visit Provider Internal Medicine Cardiovascular Disease | DX: I44.0 Atrioventricular block, first degree (principal); I51.7 Cardiomegaly; I45.4 Nonspecific intraventricular block; R00.1 Bradycardia, unspecified | CPT/HCPCS: 93010 ==

== ENCOUNTER → 2025-07-16 11:16 | Outpatient (BNV) | payer MEDICARE, MEDICAID, SELFPAY | PROVIDERS: Admitting Provider Internal Medicine Critical Care Medicine; Emergency Provider Emergency Medicine; Visit Provider Psychiatry & Neurology Neurology | DX: R41.82 Altered mental status, unspecified (principal) | CPT/HCPCS: 99232 ==

== ENCOUNTER → 2025-07-16 11:16 | Outpatient (BNV) | payer MEDICARE, MEDICAID, SELFPAY | PROVIDERS: Admitting Provider Internal Medicine Critical Care Medicine; Emergency Provider Emergency Medicine; Visit Provider Internal Medicine Critical Care Medicine | DX: I50.9 Heart failure, unspecified (principal); R41.82 Altered mental status, unspecified; J96.01 Acute respiratory failure with hypoxia; I63.9 Cerebral infarction, unspecified | CPT/HCPCS: 99233 ==

== ENCOUNTER → 2025-07-16 11:16 | Outpatient (BNV) | payer MEDICARE, MEDICAID, SELFPAY | PROVIDERS: Admitting Provider Internal Medicine Critical Care Medicine; Emergency Provider Emergency Medicine; Visit Provider Internal Medicine Cardiovascular Disease | DX: I44.1 Atrioventricular block, second degree (principal) | CPT/HCPCS: 99222 ==

== ENCOUNTER → 2025-07-16 11:16 | Outpatient (BNV) | payer MEDICARE, MEDICAID, SELFPAY | PROVIDERS: Admitting Provider Internal Medicine Critical Care Medicine; Emergency Provider Emergency Medicine; Visit Provider Internal Medicine | DX: I50.9 Heart failure, unspecified (principal); I44.1 Atrioventricular block, second degree | CPT/HCPCS: 99232; 99499 ==